=== PATIENT | male | born 1960 | race Caucasian/White ===

== ENCOUNTER 2016-08-02 20:36 | Emergency (ER) | payer OTHER ==
[2016-08-02 21:14] VITALS: BP 146/79; PULSE 77; RESP 18; TEMP 98.1
== END 2016-08-02 21:30 ==
LOC: EC 20:36
DX: Z02.83 Encounter for blood-alcohol and blood-drug test (principal)
CPT/HCPCS: 99281

== ENCOUNTER 2020-11-15 17:00 | Inpatient (IN) | payer OTHER ==
[2020-11-15] MEDS ORDERED: ETOMIDATE 2 MG/ML 10 ML VIAL IVP STA (17:21)
[2020-11-15] MEDS ORDERED: DILTIAZEM 5 MG/ML 5 ML VIAL IVP STA (17:26)
[2020-11-15] MEDS: DILTIAZEM DRIP BOLUS FROM BAG 1 MG SOLN IV ONE ×2 (17:28→18:08)
[2020-11-15] MEDS ORDERED: SODIUM CHLORIDE 0.9% 1,000 ML IV ONE (17:29)
[2020-11-15] MEDS ORDERED: DILTIAZEM 125 MG in SODIUM CHLORIDE 0.9% 100 ML IV SCH (17:30)
[2020-11-15] MEDS ORDERED: HEPARIN SODIUM 1,000 UN/ML (10ML VL) IV ONE (17:35)
[2020-11-15 17:37] LABS: Basophils # (A) 0.1 k/uL (0-0.2); Basophils % (A) 1 %; Eosinophils # (A) 0.2 k/uL (0-0.7); Eosinophils % (A) 2 %; HCT 48.7 % (39.0-53.0); HGB 16.4 gm/dL (13.0-17.5); Lymphocytes # (A) 0.7 k/uL (1.0-4.8); Lymphocytes % (A) 6 %; MCH 33.6 pg (25.0-35.0); MCHC 33.8 g/dL (31.0-37.0); MCV 99.4 fL (80.0-100.0); Monocytes # (A) 1.1 k/uL (0-1.0); Monocytes % (A) 10 %; Neutrophils # (A) 9.6 k/uL (1.3-7.7); Neutrophils % (A) 82 %; Platelet Count 235 k/uL (150-450); RBC 4.89 m/uL (4.30-5.90); RDW 13.2 % (11.5-15.5); WBC 11.8 k/uL (3.8-10.6)
--- NOTE | 2020-11-15 17:47 | ED ---
General Adult HPI - General Chief complaint: Weakness Stated complaint: weakness Time Seen by Provider: 11/15/20 17:10 Source: patient Mode of arrival: ambulatory Limitations: no limitations - History of Present Illness Initial comments: Dictation was produced using [email or web address] dictation software. please excuse any grammatical, word or spelling errors. This patient was cared for during a federal and state declared state of emergency secondary to Covid 19 Chief Complaint: 59-year-old male presents to the emergency department for dyspnea, lower extremity swelling History of Present Illness: Patient is a 59-year-old male he was sent in by primary care physician's office for severe dyspnea. Patient 59-year-old male he denies any medical problems. He states he however has not seen a doctor as he never had any issues. Does not take any medications on a regular basis. Patient smokes regularly. He drinks alcohol daily however only wanted 2 beers per day. Patient has been feeling ill for the last 2 weeks. He decided to follow-up with her primary care doctor. He went to Dr. Figueroa's office. She evaluated him told to come to the emergency department right away. Patient states over the last 2 weeks he's been having shortness of breath it's been increasing in intensity and severity. Also complains of palpitations. Denies any pain complaints. Since his symptoms are worse with lying flat. He notes significant edema developing over his bilateral lower extremities. The ROS documented in this emergency department record has been reviewed and confirmed by me. Those systems with pertinent positive or negative responses have been documented in the HPI. All other systems are other negative and/or noncontributory. PHYSICAL EXAM: General Impression: Alert and oriented x3, acute distress secondary to dyspnea HEENT: Normocephalic atraumatic, extra-ocular movements intact, pupils equal and reactive to light bilaterally, mucous membranes moist. Cardiovascular: Irregularly irregular Chest: 3 word and tenses, tachypneic, bilateral lung crackles Abdomen: abdomen soft, non-tender, non-distended, no organomegaly Musculoskeletal: Pulses present and equal in all extremities, 4+ pitting edema to the bilateral lower extremities Motor: no focal deficits noted Neurological: CN II-XII grossly intact, no focal motor or sensory deficits noted Skin: Intact with no visualized rashes Psych: Anxious ED course: 59-year-old male presents to the emergency department for dyspnea. He was emergently redirected from primary care physician's office for severe dyspnea. Signs upon arrival shows heart rate of 81, 93% on room air. 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 Patient significantly dyspneic. EKG shows atrial flutter. Patient given a bolus of 20 mg of Cardizem with improvement of heart rate to 149. Repeat EKG shows atrial flutter with 2:1 conduction. Pressure slightly decreased to measurement of 103/82. Laboratory evaluation obtained. CBC within acceptable limits. Coag panel shows an of 1.4. D-dimer is 3.15. Metabolic panel shows sodium 124, potassium 5.2 with hemolysis. There is positive anion gap acidosis. Lactic acidosis 4.0. Troponin levels 0.033, brain natruretic peptide is 6000. COVID-19 is negative. Chest x-ray shows bilateral pleural effusions with extensive bilateral pulmonary infiltrates. CT angios obtained for elevated d-dimer. No evidence of pulmonary embolism. Patient ordered for BiPAP. He is reevaluated bedside states he's improved. His heart rate is improved. Currently on heparin and Cardizem. Patient observed in emergency department for approximately 3 hours stable medical condition. Be admitted to cardiac telemetry floor. Case discussed with Faviola Martinez who is willing to accept patients care on behalf of [facility] hospitalist group. Cardiology be consulted. Clinical presentation consistent with new onset atrial flutter,, heart failure. EKG interpretation: Ventricular rate 199, atrial flutter, QRS 70, QTc 382. No MS prolongation, no QTC prolongation, no ST or T-wave changes noted. Narrow complex tachydysrhythmia - Related Data Home Medications Medication Instructions Recorded Confirmed No Known Home Medications 08/02/16 11/15/20 Allergies Allergy/AdvReac Type Severity Reaction Status Date / Time Sulfa (Sulfonamide Allergy Rash/Hives Verified 11/15/20 17:56 Antibiotics) Review of Systems ROS Statement: Those systems with pertinent positive or pertinent negative responses have been documented in the HPI. ROS Other: All systems not noted in ROS Statement are negative. Past Medical History Past Medical History: No Reported History History of Any Multi-Drug Resistant Organisms: None Reported Past Surgical History: No Surgical Hx Reported Past Psychological History: No Psychological Hx Reported Smoking Status: Current some day smoker Past Alcohol Use History: Occasional Past Drug Use History: None Reported General Exam Limitations: no limitations Course Vital Signs 11/15/20 11/15/20 11/15/20 17:04 17:17 17:28 Temperature 97.4 F L Pulse Rate 81 199 H 160 H Pulse Rate [ [place] ] Respiratory 24 Rate Blood Pressure 133/72 131/94 110/98 O2 Sat by Pulse 93 L Oximetry 11/15/20 11/15/20 11/15/20 17:30 17:32 18:11 Temperature Pulse Rate 147 H 147 H 151 H Pulse Rate [ [place] ] Respiratory 20 18 Rate Blood Pressure 103/80 103/82 110/79 O2 Sat by Pulse 92 L 95 Oximetry 11/15/20 11/15/20 11/15/20 18:17 18:28 18:30 Temperature Pulse Rate 152 H Pulse Rate [ 152 H [place] ] Respiratory 18 18 Rate Blood Pressure 116/91 O2 Sat by Pulse 94 L Oximetry 11/15/20 11/15/20 18:46 19:01 Temperature Pulse Rate 151 H 150 H Pulse Rate [ [place] ] Respiratory 18 18 Rate Blood Pressure 97/87 108/73 O2 Sat by Pulse 94 L 94 L Oximetry Medical Decision Making - Lab Data Result diagrams: 11/15/20 17:28 11/15/20 17:28 Lab Results 11/15/20 11/15/20 11/15/20 Range/Units 17:28 17:28 17:28 WBC 11.8 H (3.8-10.6) k/uL RBC 4.89 (4.30-5.90) m/uL Hgb 16.4 (13.0-17.5) gm/dL Hct 48.7 (39.0-53.0) % MCV 99.4 (80.0-100.0) fL MCH 33.6 (25.0-35.0) pg MCHC 33.8 (31.0-37.0) g/dL RDW 13.2 (11.5-15.5) % Plt Count 235 (150-450) k/uL MPV 8.0 Neutrophils % 82 % Lymphocytes % 6 % Monocytes % 10 % Eosinophils % 2 % Basophils % 1 % Neutrophils # 9.6 H (1.3-7.7) k/uL Lymphocytes # 0.7 L (1.0-4.8) k/uL Monocytes # 1.1 H (0-1.0) k/uL Eosinophils # 0.2 (0-0.7) k/uL Basophils # 0.1 (0-0.2) k/uL PT (9.0-12.0) sec INR (<1.2) APTT (22.0-30.0) sec D-Dimer (<0.60) mg/L FEU Sodium 124 L (137-145) mmol/L Potassium 5.2 H (3.5-5.1) mmol/L Chloride 95 L (98-107) mmol/L Carbon Dioxide 14 L (22-30) mmol/L Anion Gap 15 mmol/L BUN 12 (9-20) mg/dL Creatinine 0.59 L (0.66-1.25) mg/dL Est GFR (CKD-EPI)AfAm >90 (>60 ml/min/1.73 sqM) Est GFR (CKD-EPI)NonAf >90 (>60 ml/min/1.73 sqM) Glucose 100 H (74-99) mg/dL Plasma Lactic Acid Kapil 4.0 H* (0.7-2.0) mmol/L Calcium 8.8 (8.4-10.2) mg/dL Magnesium 1.3 L (1.6-2.3) mg/dL Troponin I (0.000-0.034) ng/mL NT-Pro-B Natriuret Pep pg/mL Influenza Type A (PCR) (Not Detectd) Influenza Type B (PCR) (Not Detectd) RSV (PCR) (Not Detectd) SARS-CoV-2 (PCR) (Not Detectd) 11/15/20 11/15/20 11/15/20 Range/Units 17:28 17:28 17:28 WBC (3.8-10.6) k/uL RBC (4.30-5.90) m/uL Hgb (13.0-17.5) gm/dL Hct (39.0-53.0) % MCV (80.0-100.0) fL MCH (25.0-35.0) pg MCHC (31.0-37.0) g/dL RDW (11.5-15.5) % Plt Count (150-450) k/uL MPV Neutrophils % % Lymphocytes % % Monocytes % % Eosinophils % % Basophils % % Neutrophils # (1.3-7.7) k/uL Lymphocytes # (1.0-4.8) k/uL Monocytes # (0-1.0) k/uL Eosinophils # (0-0.7) k/uL Basophils # (0-0.2) k/uL PT 14.4 H (9.0-12.0) sec INR 1.4 H (<1.2) APTT 23.1 (22.0-30.0) sec D-Dimer 3.15 H (<0.60) mg/L FEU Sodium (137-145) mmol/L Potassium (3.5-5.1) mmol/L Chloride (98-107) mmol/L Carbon Dioxide (22-30) mmol/L Anion Gap mmol/L BUN (9-20) mg/dL Creatinine (0.66-1.25) mg/dL Est GFR (CKD-EPI)AfAm (>60 ml/min/1.73 sqM) Est GFR (CKD-EPI)NonAf (>60 ml/min/1.73 sqM) Glucose (74-99) mg/dL Plasma Lactic Acid Kapil (0.7-2.0) mmol/L Calcium (8.4-10.2) mg/dL Magnesium (1.6-2.3) mg/dL Troponin I 0.033 (0.000-0.034) ng/mL NT-Pro-B Natriuret Pep 6320 pg/mL Influenza Type A (PCR) (Not Detectd) Influenza Type B (PCR) (Not Detectd) RSV (PCR) (Not Detectd) SARS-CoV-2 (PCR) (Not Detectd) 11/15/20 Range/Units 18:27 WBC (3.8-10.6) k/uL RBC (4.30-5.90) m/uL Hgb (13.0-17.5) gm/dL Hct (39.0-53.0) % MCV (80.0-100.0) fL MCH (25.0-35.0) pg MCHC (31.0-37.0) g/dL RDW (11.5-15.5) % Plt Count (150-450) k/uL MPV Neutrophils % % Lymphocytes % % Monocytes % % Eosinophils % % Basophils % % Neutrophils # (1.3-7.7) k/uL Lymphocytes # (1.0-4.8) k/uL Monocytes # (0-1.0) k/uL Eosinophils # (0-0.7) k/uL Basophils # (0-0.2) k/uL PT (9.0-12.0) sec INR (<1.2) APTT (22.0-30.0) sec D-Dimer (<0.60) mg/L FEU Sodium (137-145) mmol/L Potassium (3.5-5.1) mmol/L Chloride (98-107) mmol/L Carbon Dioxide (22-30) mmol/L Anion Gap mmol/L BUN (9-20) mg/dL Creatinine (0.66-1.25) mg/dL Est GFR (CKD-EPI)AfAm (>60 ml/min/1.73 sqM) Est GFR (CKD-EPI)NonAf (>60 ml/min/1.73 sqM) Glucose (74-99) mg/dL Plasma Lactic Acid Kapil (0.7-2.0) mmol/L Calcium (8.4-10.2) mg/dL Magnesium (1.6-2.3) mg/dL Troponin I (0.000-0.034) ng/mL NT-Pro-B Natriuret Pep pg/mL Influenza Type A (PCR) Not Detected (Not Detectd) Influenza Type B (PCR) Not Detected (Not Detectd) RSV (PCR) Not Detected (Not Detectd) SARS-CoV-2 (PCR) Not Detected (Not Detectd) Critical Care Time Critical Care Time: Yes Total Critical Care Time: 33 Disposition Clinical Impression: Heart failure, New onset atrial fibrillation Disposition: ADMITTED IP TO THIS HOSP Condition: Critical Referrals: Ila Figuerao MD [Primary Care Provider] - 1-2 days Decision Time: 19:38
[2020-11-15 17:48] LABS: African American GFR (CKD) >90 (>60 ml/min/1.73 sqM); Anion Gap 15 mmol/L; Blood Urea Nitrogen 12 mg/dL (9-20); Calcium 8.8 mg/dL (8.4-10.2); Carbon Dioxide 14 mmol/L (22-30); Chloride 95 mmol/L (98-107); Glucose 100 mg/dL (74-99); Magnesium 1.3 mg/dL (1.6-2.3); Non-African American GFR(CKD) >90 (>60 ml/min/1.73 sqM); Sodium 124 mmol/L (137-145)
--- NOTE | 2020-11-15 17:52 | XR ---
EXAMINATION TYPE: XR chest 1V portable DATE OF EXAM: 11/15/2020 COMPARISON: 04/18/2013 HISTORY: Short of breath TECHNIQUE: FINDINGS: Heart is enlarged. There is patchy pulmonary bilateral airspace infiltrates. There is coale scent density. There is blunting of the costophrenic angles. There are chest leads. Mediastinum appea rs normal. IMPRESSION: There are extensive bilateral pulmonary infiltrates with pleural effusions that could rel ate to RDS or atypical heart failure. Abnormalities are new compared to old exam.
[2020-11-15 17:54] LABS: Potassium 5.2 mmol/L (3.5-5.1)
[2020-11-15 17:58] LABS: INR 1.4 (<1.2); Partial Thromboplastin Time 23.1 sec (22.0-30.0); Prothrombin Time 14.4 sec (9.0-12.0)
[2020-11-15] MEDS: HEPARIN SOD,PORK IN 0.45% NACL 25,000 UNIT in 0.45% NACL 1 250ML.BAG IV SCH (17:58)
[2020-11-15] MEDS: MAGNESIUM SULFATE-D5W PMX 1 GM in DEXTROSE/WATER 1 100ML.BAG IVPB SCH ×2 (18:27→20:31)
[2020-11-15 18:32] LABS: D-Dimer 3.15 mg/L FEU (<0.60)
--- NOTE | 2020-11-15 19:32 | CT ---
EXAMINATION TYPE: CT angio chest DATE OF EXAM: 11/15/2020 COMPARISON: None HISTORY: Positive d-dimer, weakness, extremity edema. Pt denies any cardiac/pulmonary hx. CT DLP: 291.5 mGycm Automated exposure control for dose reduction was used. CONTRAST: Performed with IV Contrast, patient injected with 100 mL of Isovue 370. There are 3-D post processed images. There are bilateral pleural effusions. There is bilateral patchy lower lobe pulmonary airspace consol idation and atelectasis. Heart size is fairly normal. There is no pericardial effusion. There is no mediastinal adenopathy. There are no hilar masses. There is normal contrast opacification of the pulmonary arteries. There are no filling defects. Thoracic aorta appears intact. There is no evidence of aneurysm. The thoracic spine is intact. Sternum is intact. The upper abdominal soft tissu es are intact. IMPRESSION: No evidence of pulmonary embolism. Moderate-sized bilateral pleural effusions with extensive pulmonary infiltrates and atelectasis.
[2020-11-15] MEDS ORDERED: ACETAMINOPHEN TAB 325 MG TAB PO PRN (19:34)
[2020-11-15] MEDS ORDERED: NALOXONE 0.4 MG/ML 1 ML VIAL IV PRN (19:34)
[2020-11-15] MEDS: PANTOPRAZOLE 40 MG/10 ML VIAL IV SCH ×2 (21:09→23:22)
[2020-11-15] MEDS: SODIUM CHLORIDE 0.9% 1,000 ML IV SCH (23:23)
[2020-11-15] MEDS ORDERED: METOPROLOL TARTRATE 5 MG/5 ML VIAL IVP ONE (23:30)
[2020-11-16] MEDS ORDERED: SODIUM CHLORIDE 0.9% 500 ML 500 ML IV ONE (00:05)
[2020-11-16] MEDS ORDERED: DEXTROSE 5% IN WATER 100 ML with AMIODARONE 150 MG IV ONE (03:01)
[2020-11-16] MEDS ORDERED: AMIODARONE 360 MG in DEXTROSE 5% IN WATER 200 ML IV ONE ×2 (03:01)
[2020-11-16] MEDS ORDERED: DIGOXIN 250 MCG/ML 2 ML AMP IVP ONE ×2 (08:34→14:30)
[2020-11-16] MEDS ORDERED: FUROSEMIDE 10 MG/ML 2 ML VIAL IV ONE (08:34)
[2020-11-16] MEDS ORDERED: LORazepam 2 MG/ML INJ IV STA (09:09)
[2020-11-16] MEDS: ONDANSETRON 4 MG/2 ML VIAL IVP PRN (09:21)
--- NOTE | 2020-11-16 10:14 | ECHOF ---
Referral Reason:new onset atrial fibrillation MEASUREMENTS -------- HEIGHT: 182.9 cm WEIGHT: 72.6 kg BP: RVIDd: 3.8 cm (< 3.3) IVSd: 1.0 cm (0.6 - 1.1) LVIDd: 5.2 cm (3.9 - 5.3) LVPWd: 1.2 cm (0.6 - 1.1) IVSs: 1.1 cm LVIDs: 5.1 cm LVPWs: 1.3 cm LA Diam: 3.9 cm (2.7 - 3.8) Ao Diam: 3.0 cm (2.0 - 3.7) AV Cusp: 2.0 cm (1.5 - 2.6) MV EXCURSION: 15.488 mm (> 18.000) MV EF SLOPE: 99 mm/s (70 - 150) EPSS: 1.5 cm RAP: 5.00 mmHg RVSP: 18.87 mmHg FINDINGS -------- Atrial fibrillation. This was a technically adequate study. The left ventricular size is normal. There is borderline concentric left ventricular hypertrophy. There is severe global hypokinesis of LV . Overall left ventricular systolic function is severely impaired with, an EF < 20%. The right ventricle is mild to moderately enlarged. The left atrial size is normal. The right atrium is moderately enlarged. The aortic valve is trileaflet, and appears structurally normal. No aortic stenosis or regurgitation. The mitral valve is normal. Mild mitral regurgitation is present. Mild tricuspid regurgitation present. Right ventricular systolic pressure is normal at < 35 mmHg. The right ventricular systolic pressure, as measured by Doppler, is 18.87mmHg. There is no pulmonic regurgitation present. The aortic root size is normal. There is a small, generalized pericardial effusion present. Large Pleural Effusion. CONCLUSIONS -------- 1. There is borderline concentric left ventricular hypertrophy. 2. There is severe global hypokinesis of LV . 3. Overall left ventricular systolic function is severely impaired with, an EF < 20%. 4. The right ventricle is mild to moderately enlarged. 5. The left atrial size is normal. 6. The right atrium is moderately enlarged. 7. The aortic valve is trileaflet, and appears structurally normal. No aortic stenosis or regurgitati on. 8. Mild mitral regurgitation is present. 9. Mild tricuspid regurgitation present. 10. There is a small, generalized pericardial effusion present. 11. Large Pleural Effusion. PSS DELIVERY PROFESSIONAL: Tatum Hua RDCS
[2020-11-16 10:32] LABS: HCT 49.2 % (39.0-53.0); HGB 15.7 gm/dL (13.0-17.5); Hypochromasia Slight; MCH 32.9 pg (25.0-35.0); MCV 102.8 fL (80.0-100.0); Macrocytosis Slight; Mean Platelet Volume 8.4; Platelet Count 214 k/uL (150-450); RBC 4.79 m/uL (4.30-5.90); RDW 13.1 % (11.5-15.5); WBC 13.9 k/uL (3.8-10.6)
[2020-11-16 10:36] LABS: African American GFR (CKD) >90 (>60 ml/min/1.73 sqM); Anion Gap 17 mmol/L; Blood Urea Nitrogen 13 mg/dL (9-20); Calcium 8.7 mg/dL (8.4-10.2); Carbon Dioxide 13 mmol/L (22-30); Chloride 97 mmol/L (98-107); Glucose 62 mg/dL (74-99); Magnesium 1.8 mg/dL (1.6-2.3); Non-African American GFR(CKD) >90 (>60 ml/min/1.73 sqM); Potassium 4.8 mmol/L (3.5-5.1); Sodium 127 mmol/L (137-145)
[2020-11-16] MEDS: AMIODARONE 450 MG in DEXTROSE 5% IN WATER 250 ML IV SCH ×4 (10:36→23:59)
--- NOTE | 2020-11-16 14:21 | P.CRDCN ---
History of Present Illness History of present illness: HISTORY OF PRESENTING ILLNESS This is a pleasant 59-year-old male with no signifcant past medical history. 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 He denies any cardiac history. Denies history of diabetes, HI, stroke, hypertension. We have been asked to see in consultation for new onset atrial fibrillation with RVR. Patient states he has been feeling fatigue and short of breath for the past week. He went to his PCP Dr. Figueroa office and she told him to come to the emergency department. patient is a daily alcohol drinker 2 beers per day, deneis tobacco use. He endorses symptoms of orthopnea and PND. Also with significant lower extremity edema. Patient on heparin drip. Patient started on cardizem drip, became hypotensive. Cardizem stopped. Given IV Lopressor, experienced hypotension again. Started on amiodarone drip. Patient is seen and examined in the emergency department, appears in distress. Laboratory data reviewed, sodium 127, potassium 4.8, serum creatinine 0.89, WBC 13.9 BNP 6320, troponin negative 1. Currently being maintained on IV amiodarone, IV heparin. DIAGNOSTICS EKG reveals atrial fibrillation with RVR heart rate 148 Telemetry tracings indicate atrial fibrillation HR 130-140s Chest CT- negative PE, moderate sized bilateral pleural effusions with extensive pulmonary infiltrates and atelectasis Current cardiac medications include none REVIEW OF SYSTEMS At the time of my exam: CONSTITUTIONAL: Denies fever or chills. CARDIOVASCULAR: +shortness of breath +orthopnea, +PND Denies palpitations. Denies chest pain. RESPIRATORY: Denies cough. GASTROINTESTINAL: Denies abdominal pain, diarrhea, constipation, nausea or vomiting. MUSCULOSKELETAL: Denies myalgias. NEUROLOGIC: Denies numbness, tingling, headacbe or weakness. ENDOCRINE: + fatigue, Denies weight change, polydipsia or polyurina. GENITOURINARY: Denies burning, hematuria or urgency with micturation. HEMATOLOGIC: Denies history of anemia or bleeding. PHYSICAL EXAMINATION Blood pressure 105/84 heart rate 133 afebrile and maintaining oxygen saturation on 98% on room air CONSTITUTIONAL: No apparent distress. HEENT: Head is normocephalic. Pupils are equal, round. Sclerae anicteric. Mucous membranes of the mouth are moist. + JVD. No carotid bruit. CHEST EXAMINATION: Lungs are diminished auscultation Wheezing noted in bilateral bases. No chest wall tenderness is noted on palpation or with deep breathing. HEART EXAMINATION: Irregular and tachycardic rate and rhythm. S1, S2 heard. No m urmur No gallops or rub. ABDOMEN: Soft, nontender. Positive bowel sounds. EXTREMITIES: 2+ peripheral pulses,4+ severe lower extremity edema and no calf tenderness. NEUROLOGIC EXAMINATION: Patient is awake, alert and oriented x3. ASSESSMENT Atrial fibrillation with RVR PLAN Obtain 2D echo Start Digoxin 250mcg IV once, then another dose in 6 hours Continue amiodarone drip and heparin drip Start IV Lasix Patient should be admitted to ICU Keep patient NPO for possible SUSIE cardioversion Nurse Practitioner note has been reviewed, I agree with a documented findings and plan of care. Patient was seen and examined. Past Medical History Past Medical History: No Reported History History of Any Multi-Drug Resistant Organisms: None Reported Past Surgical History: No Surgical Hx Reported Past Anesthesia/Blood Transfusion Reactions: No Reported Reaction Past Psychological History: No Psychological Hx Reported Smoking Status: Current some day smoker Past Alcohol Use History: Occasional Past Drug Use History: None Reported Medications and Allergies Home Medications Medication Instructions Recorded Confirmed Type No Known Home Medications 08/02/16 11/15/20 History Allergies Allergy/AdvReac Type Severity Reaction Status Date / Time Sulfa (Sulfonamide Allergy Rash/Hives Verified 11/15/20 17:56 Antibiotics) Physical Exam Vitals: Vital Signs Temp Pulse Pulse Resp BP BP Pulse Ox 11/16/20 06:21 140 H 20 112/60 95 11/16/20 04:26 141 H 20 96/65 96 11/16/20 03:53 146 H 16 115/79 97 11/16/20 02:30 146 H 121/86 11/16/20 01:35 98.4 F 71 19 84/67 96 11/16/20 00:50 144 H 20 89/76 96 11/16/20 00:43 104 H 18 88/62 93 L 11/16/20 00:28 112 H 18 104/82 11/16/20 00:20 114 H 18 104/82 95 11/16/20 00:10 83 18 64/43 95 11/16/20 00:05 96 18 78/67 95 11/15/20 23:51 96 18 96/63 95 11/15/20 23:50 97 18 103/89 11/15/20 23:45 97 18 88/52 93 L 11/15/20 23:35 98 18 96/63 94 L 11/15/20 23:14 98.1 F 149 H 18 107/80 96 11/15/20 19:01 150 H 18 108/73 94 L 11/15/20 18:46 151 H 18 97/87 94 L 11/15/20 18:30 18 11/15/20 18:28 152 H 11/15/20 18:17 152 H 18 116/91 94 L 11/15/20 18:11 151 H 18 110/79 95 11/15/20 17:32 147 H 20 103/82 92 L 11/15/20 17:30 147 H 103/80 11/15/20 17:28 160 H 110/98 11/15/20 17:17 199 H 131/94 11/15/20 17:04 97.4 F L 81 24 133/72 93 L Intake and Output 11/15/20 11/16/20 11/16/20 22:59 06:59 14:59 Intake Total 6.167 201.292 Balance 6.167 201.292 Intake: Intake, IV Titration 6.167 201.292 Amount Diltiazem 125 mg In 6.167 94.167 Sodium Chloride 0.9% 100 ml @ 5 MG/HR 5 mls/hr IV .Q24H [facility] Rx#:[id number] Heparin Sod,Pork in 0.45% 107.125 NaCl 25,000 unit In 0.45 % NaCl 1 250ml.bag @ 18 UNITS/KG/HR 13.064 mls/hr IV .Q19H9M [facility] Rx#: [id number] Other: # Voids 2 Weight 72.575 kg Results 11/16/20 09:52 11/16/20 09:52 Cardiac Enzymes 11/15/20 Range/Units 17:28 Troponin I 0.033 (0.000-0.034) ng/mL Coagulation 11/15/20 11/16/20 Range/Units 17:28 00:31 PT 14.4 H (9.0-12.0) sec APTT 23.1 144.8 H* (22.0-30.0) sec CBC 04/27/21 Range/Units 17:28 WBC 11.8 H (3.8-10.6) k/uL RBC 4.89 (4.30-5.90) m/uL Hgb 16.4 (13.0-17.5) gm/dL Hct 48.7 (39.0-53.0) % Plt Count 235 (150-450) k/uL Comprehensive Metabolic Panel 11/15/20 Range/Units 17:28 Sodium 124 L (137-145) mmol/L Potassium 5.2 H (3.5-5.1) mmol/L Chloride 95 L (98-107) mmol/L Carbon Dioxide 14 L (22-30) mmol/L BUN 12 (9-20) mg/dL Creatinine 0.59 L (0.66-1.25) mg/dL Glucose 100 H (74-99) mg/dL Calcium 8.8 (8.4-10.2) mg/dL Current Medications Generic Name Dose Route Start Last Admin Trade Name Freq PRN Reason Stop Dose Admin Acetaminophen 650 mg 11/15/20 19:34 Acetaminophen Tab 325 Mg Tab PO Q6HR PRN Mild Pain or Fever > 100.5 Heparin Sodium (Porcine) 0 unit 11/15/20 17:35 Heparin Sodium 1,000 Un/Ml (10ml Vl) IV PER PROTOCOL PRN Low PTT Protocol Heparin Sodium/Sodium Chloride 250 mls @ 13.064 mls/hr 11/15/20 17:45 11/16/20 03:54 25,000 unit/ Sodium Chloride IV 15 units/kg/hr .Q19H9M [facility] 10.886 mls/hr Titration Protocol 18 UNITS/KG/HR Sodium Chloride 1,000 mls @ 20 mls/hr 11/15/20 19:45 11/15/20 23:23 Saline 0.9% IV 20 mls/hr .Q24H [facility] Administration Amiodarone HCl 360 mg/ 200 mls @ 33.333 mls/hr 11/16/20 03:01 11/16/20 04:01 Dextrose/Water IV 11/16/20 09:00 1 mg/min .Q6H ONE 33.333 mls/hr Administration Protocol 1 MG/MIN Amiodarone HCl 450 mg/ 250 mls @ 16.667 mls/hr 11/16/20 09:15 Dextrose/Water IV 11/17/20 03:14 .Q15H [facility] Protocol 0.5 MG/MIN Naloxone HCl 0.2 mg 11/15/20 19:34 Naloxone 0.4 Mg/Ml 1 Ml Vial IV Q2M PRN Opioid Reversal Ondansetron HCl 4 mg 11/15/20 19:34 Ondansetron 4 Mg/2 Ml Vial IVP Q8HR PRN Nausea And Vomiting Pantoprazole Sodium 40 mg 11/15/20 19:45 11/15/20 23:22 Pantoprazole 40 Mg/10 Ml Vial IV 40 mg DAILY ISABELLA Administration Intake and Output 11/15/20 11/16/20 11/16/20 22:59 06:59 14:59 Intake Total 6.167 201.292 Balance 6.167 201.292 Intake: Intake, IV Titration 6.167 201.292 Amount Diltiazem 125 mg In 6.167 94.167 Sodium Chloride 0.9% 100 ml @ 5 MG/HR 5 mls/hr IV .Q24H [facility] Rx#:[id number] Heparin Sod,Pork in 0.45% 107.125 NaCl 25,000 unit In 0.45 % NaCl 1 250ml.bag @ 18 UNITS/KG/HR 13.064 mls/hr IV .Q19H9M [facility] Rx#: [id number] Other: # Voids 2 Weight 72.575 kg 11/15/20 17:28 11/15/20 17:28
[2020-11-16] MEDS: FUROSEMIDE 10 MG/ML 4 ML VIAL IV SCH (14:44)
[2020-11-16 15:31] LABS: Glucose,Whole Blood 127 mg/dL (75-99)
[2020-11-16 15:54] LABS: Glucose,Whole Blood 119 mg/dL (75-99)
[2020-11-16] MEDS: HEPARIN SOD,PORK IN 0.45% NACL 25,000 UNIT in 0.45% NACL 1 250ML.BAG IV SCH ×2 (16:10→20:04)
[2020-11-16] MEDS: SODIUM CHLORIDE 0.9% 1,000 ML IV SCH ×3 (16:11→21:26)
--- NOTE | 2020-11-16 16:18 | P.CNPUL ---
History of Present Illness Consult date: 11/16/20 Requesting physician: Ila Figueroa Reason for consult: dyspnea, hypoxemia, pleural effusion, abnormal CXR/CT, other Chief complaint: Fatigue and weakness, shortness of breath. History of present illness: Pulmonary consult dated 11/16/2020. 59-year-old male, who apparently does not visit the doctor or sees the doctor on a regular basis, and claims that he has no major medical problems, comes into the emergency room on November 15, complaining of weakness and fatigue. The patient was apparently sent in by his primary care physician for these symptoms. The patient does drink a couple beers every day, and smokes at least a pack of cigarettes a day. The patient has been smoking for at least 40 years or so. Over the last couple weeks, he has no appetite, not really eating or drinking, and has no motivation to really get out of bed. He looks quite disheveled, and his clothing is dirty. When he was in the emergency room, he was noted to have atrial fibrillation with a very rapid ventricular response. Currently, the patient is on 2 L nasal cannula. On room air, her saturations were 90-91%. He is currently on IV heparin, and amiodarone at 0.5 mg/m. Lopressor and Cardizem that he was on earlier, has been discontinued. He denies any major medical problems, and again states that he does not see the doctor on a regular basis. The patient looks quite ill. Apparently had an echocardiogram which showed a very low ejection fraction. He states he takes no medications at home on a regular basis, and is only drug ALLERGY is sulfa. Review of Systems REVIEW OF SYSTEMS: CONSTITUTIONAL: Weakness and fatigue. Decreased oral intake. NEUROLOGIC: [ Negative.] HEENT: [ Negative.] CARDIAC: [Negative.] PULMONARY: Shortness of breath. GI: Decreased appetite. : [Negative.] RHEUMATOLOGIC: [ Negative.] IMMUNOLOGIC: [ Negative.] ENDOCRINE: [Negative. ] DERMATOLOGIC: [Negative.] Past Medical History Past Medical History: No Reported History History of Any Multi-Drug Resistant Organisms: None Reported Past Surgical History: No Surgical Hx Reported Past Anesthesia/Blood Transfusion Reactions: No Reported Reaction Past Psychological History: No Psychological Hx Reported Smoking Status: Current some day smoker Past Alcohol Use History: Occasional Past Drug Use History: None Reported Medications and Allergies Home Medications Medication Instructions Recorded Confirmed Type No Known Home Medications 08/02/16 11/15/20 History Allergies Allergy/AdvReac Type Severity Reaction Status Date / Time Sulfa (Sulfonamide Allergy Rash/Hives Verified 11/15/20 17:56 Antibiotics) Physical Exam Osteopathic Statement: *. No significant issues noted on an osteopathic structural exam other than those noted in the History and Physical/Consult. Vitals: Vital Signs Temp Pulse Pulse Resp BP BP Pulse Ox 11/16/20 15:44 97.9 F 138 H 18 121/88 95 11/16/20 14:29 97.9 F 137 H 29 H 117/37 95 11/16/20 12:22 97.5 F L 135 H 28 H 102/48 90 L 11/16/20 11:18 98.4 F 133 H 30 H 103/45 91 L 11/16/20 10:55 133 H 28 H 105/27 95 11/16/20 09:18 133 H 28 H 105/84 98 11/16/20 07:43 98.2 F 138 H 28 H 112/81 99 11/16/20 06:21 140 H 20 112/60 95 11/16/20 04:26 141 H 20 96/65 96 11/16/20 03:53 146 H 16 115/79 97 11/16/20 02:30 146 H 121/86 11/16/20 01:35 98.4 F 71 19 84/67 96 11/16/20 00:50 144 H 20 89/76 96 11/16/20 00:43 104 H 18 88/62 93 L 11/16/20 00:28 112 H 18 104/82 11/16/20 00:20 114 H 18 104/82 95 11/16/20 00:10 83 18 64/43 95 11/16/20 00:05 96 18 78/67 95 11/15/20 23:51 96 18 96/63 95 11/15/20 23:50 97 18 103/89 11/15/20 23:45 97 18 88/52 93 L 11/15/20 23:35 98 18 96/63 94 L 11/15/20 23:14 98.1 F 149 H 18 107/80 96 11/15/20 19:01 150 H 18 108/73 94 L 11/15/20 18:46 151 H 18 97/87 94 L 11/15/20 18:30 18 11/15/20 18:28 152 H 11/15/20 18:17 152 H 18 116/91 94 L 11/15/20 18:11 151 H 18 110/79 95 11/15/20 17:32 147 H 20 103/82 92 L 11/15/20 17:30 147 H 103/80 11/15/20 17:28 160 H 110/98 11/15/20 17:17 199 H 131/94 11/15/20 17:04 97.4 F L 81 24 133/72 93 L Intake and Output 11/16/20 11/16/20 11/16/20 06:59 14:59 22:59 Intake Total 201.292 74.569 Balance 201.292 74.569 Intake: Intake, IV Titration 201.292 74.569 Amount Diltiazem 125 mg In 94.167 Sodium Chloride 0.9% 100 ml @ 5 MG/HR 5 mls/hr IV .Q24H ISABELLA Rx#:[id number] Heparin Sod,Pork in 0.45% 107.125 74.569 NaCl 25,000 unit In 0.45 % NaCl 1 250ml.bag @ 18 UNITS/KG/HR 13.064 mls/hr IV .Q19H9M ISABELLA Rx#: [id number] Other: # Voids 2 Mild conversational dyspnea, oriented, quite disheveled, with dirty clothing. Room air saturations 90-91%, higher on supplemental oxygen, which he keeps taking off. HEENT examination is grossly unremarkable. Teeth are in very poor repair. Neck supple. Full range of motion. No adenopathy or thyromegaly. There is neck vein distention. Cardiovascular examination reveals an irregular rhythm and rate. S1-S2 normal. No S3 or S4. No discernible murmur noted. Heart sounds are distant. Heart rate 138 bpm. Lungs reveal scattered rhonchi. A few scattered crackles. Breath sounds equal. A few scattered wheezes are also noted. Abdomen soft bowel sounds are heard. No masses or tenderness. Extremities are intact. No cyanosis or clubbing. Lower extremity edema is noted. Skin is without rash or lesion. Neurologic examination is brief but nonfocal. Results - Laboratory Findings CBC and BMP: 11/16/20 09:52 11/16/20 09:52 PT/INR, D-dimer PT 14.4 sec (9.0-12.0) H 11/15/20 17:28 INR 1.4 (<1.2) H 11/15/20 17:28 D-Dimer 3.15 mg/L FEU (<0.60) H 11/15/20 17:28 Abnormal lab findings: Abnormal Labs 11/15/20 11/15/20 11/15/20 17:28 17: 17:28 WBC 11.8 H MCV Neutrophils # 9.6 H Lymphocytes # 0.7 L Monocytes # 1.1 H PT INR APTT D-Dimer Sodium 124 L Potassium 5.2 H Chloride 95 L Carbon Dioxide 14 L Creatinine 0.59 L Glucose 100 H POC Glucose (mg/dL) Plasma Lactic Acid Kapil 4.0 H* Magnesium 1.3 L 11/15/20 11/16/20 11/16/20 17: 00:31 09:52 WBC 13.9 H MCV 102.8 H Neutrophils # Lymphocytes # Monocytes # PT 14.4 H INR 1.4 H APTT 144.8 H* D-Dimer 3.15 H Sodium Potassium Chloride Carbon Dioxide Creatinine Glucose POC Glucose (mg/dL) Plasma Lactic Acid Kapil Magnesium 11/16/20 11/16/20 11/16/20 09:52 09:52 15:28 WBC MCV Neutrophils # Lymphocytes # Monocytes # PT INR APTT 73.1 H D-Dimer Sodium 127 L Potassium Chloride 97 L Carbon Dioxide 13 L Creatinine Glucose 62 L POC Glucose (mg/dL) 127 H Plasma Lactic Acid Kapil Magnesium 11/16/20 15:52 WBC MCV Neutrophils # Lymphocytes # Monocytes # PT INR APTT D-Dimer Sodium Potassium Chloride Carbon Dioxide Creatinine Glucose POC Glucose (mg/dL) 119 H Plasma Lactic Acid Kapil Magnesium - Diagnostic Findings Chest x-ray: image reviewed CT scan - chest: image reviewed Assessment and Plan Assessment: Severe cardiomyopathy, with an ejection fraction of less than 20%, and a patient with systolic CHF and bilateral effusions. Atrial fibrillation with RVR, possibly new onset. Medical noncompliance, as patient has not seen a doctor in years. No evidence of pulmonary embolism on CT angiogram. Probable hypervolemic hyponatremia. Anion gap metabolic acidosis. History of chronic alcohol use. History of chronic tobacco use and nicotine addiction, rule out COPD. Plan: Plan dated 11/16/2020. The patient will be admitted into the intensive care unit. I'll add some updrafts, with albuterol sulfate, and ipratropium bromide. Cardiology has seen the patient. Echocardiogram shows a severely impaired left ventricle. A procalcitonin level be done. Additional recommendations and suggestions are forthcoming. Prognosis is guarded. We will continue to follow make recommendations were appropriate. Currently, the patient's on IV heparin, and amiodarone at 0.5 mg/m. Time with Patient: Greater than 30
[2020-11-16] MEDS ORDERED: IPRATROPIUM-ALBUTEROL 3 ML NEB INHALATION PRN (16:30)
--- NOTE | 2020-11-16 16:54 | P.PCN ---
Date of Procedure: 11/16/20 Preoperative Diagnosis: Atrial flutter with rapid ventricular response associated with hypotension and CHF. Postoperative Diagnosis: Successful cardioversion to sinus rhythm Procedure(s) Performed: SUSIE followed by cardioversion Description of Procedure: #1. SUSIE INDICATION: To rule out left atrial thrombus before cardioversion CONSENT: . Informed verbal consent was obtained PROCEDURE: Patient is in ICU. Patient has been nothing by mouth. Patient was given sedation by department of anesthesia. Patient's throat was sprayed with Hurricaine. A lubricated Omni probe was introduced in the oropharynx and was advanced into the esophagus without difficulty. Multiple views were obtained. Color, pulsed, continuous Doppler studies were performed . Saline contrast bubble injection was performed FINDINGS: . There is biventricular enlargement with biventricular dysfunction and hypokinesia. The left atrial appendage is free of any clot. There is about 2+ mitral regurgitation. Biatrial enlargement. There is no evidence of PFO. Severely impaired LV function. The aortic valve appeared to be normal and tricuspid without any significant regurgitation. Tricuspid valve showed mild regurgitation IMPRESSION: . No clot in left atrial appendage PLAN: . She didn't cardioversion. #2. Cardioversion: After completion of the SSUIE, patient was positioned supine. Anterior posterior paddles were applied. A single shock of 200 J was applied .patient converted to sinus rhythm. No immediate complications. Final impression: Successful cardioversion. Plan: Continue with current medical therapy including anticoagulation and also IV amiodarone. We will continue with digoxin. Continue the beta blockers, diuretics and also HARJEET inhibitor. Will add Aldactone.
[2020-11-16] MEDS: IPRATROPIUM-ALBUTEROL 3 ML NEB INHALATION SCH (19:00)
--- NOTE | 2020-11-16 20:18 | P.HPIM ---
History of Present Illness H&P Date: 11/16/20 Chief Complaint: shortness of breath Marbin Chin is a 59 yo M who has no known PMH, does not see a doctor and states he has been healthy his entire life. Over the past few weeks he has been feeling increasingly malaised and short of breath. He denies any chest pain or sweats. Pt established care with his PCP and described these symptoms and was thus sent to the ED. He is a daily alcohol drinker 2 beers per day and lifelong smoker. He endorses symptoms of orthopnea and PND. On presentation he was noted to be in atrial fibrillation with RVR was started on diltiazem drip. Labs significant for WBC 11.8k, Na 124, BNP 6200, trop negative. He remained in RVR despite diltiazem and was loaded on amiodarone with improvement in HR. Echo today showing EF 5%. Review of Systems All systems: negative Constitutional: Reports malaise, Denies chills, Denies fever Eyes: denies blurred vision, denies pain Ears, nose, mouth and throat: Denies headache, Denies sore throat Cardiovascular: Reports dyspnea on exertion, Reports edema, Reports orthopnea, Denies chest pain, Denies shortness of breath Respiratory: Reports cough, Reports dyspnea Gastrointestinal: Denies abdominal pain, Denies diarrhea, Denies nausea, Denies vomiting Musculoskeletal: Denies myalgias Integumentary: Denies pruritus, Denies rash Neurological: Denies numbness, Denies weakness Psychiatric: Denies anxiety, Denies depression Endocrine: Denies fatigue, Denies weight change Past Medical History Past Medical History: No Reported History History of Any Multi-Drug Resistant Organisms: None Reported Past Surgical History: No Surgical Hx Reported Past Anesthesia/Blood Transfusion Reactions: No Reported Reaction Past Psychological History: No Psychological Hx Reported Smoking Status: Current some day smoker Past Alcohol Use History: Occasional Past Drug Use History: None Reported Medications and Allergies Home Medications Medication Instructions Recorded Confirmed Type No Known Home Medications 08/02/16 11/15/20 History Allergies Allergy/AdvReac Type Severity Reaction Status Date / Time Sulfa (Sulfonamide Allergy Rash/Hives Verified 11/15/20 17:56 Antibiotics) Physical Exam Vitals: Vital Signs Temp Pulse Pulse Resp BP BP Pulse Ox 11/16/20 19:10 96 11/16/20 19:06 96 11/16/20 19:00 98 17 123/80 96 11/16/20 18:30 95 18 122/83 96 11/16/20 18:00 96 17 126/85 95 11/16/20 17:30 96 23 126/95 93 L 11/16/20 17:00 82 16 107/79 97 11/16/20 16:30 83 17 116/78 95 11/16/20 16:00 97.7 F 138 H 17 133/76 95 11/16/20 15:44 97.9 F 138 H 18 121/88 95 11/16/20 15:30 121/88 11/16/20 14:29 97.9 F 137 H 29 H 117/37 95 11/16/20 12:22 97.5 F L 135 H 28 H 102/48 90 L 11/16/20 11:18 98.4 F 133 H 30 H 103/45 91 L 11/16/20 10:55 133 H 28 H 105/27 95 11/16/20 09:18 133 H 28 H 105/84 98 11/16/20 07:43 98.2 F 138 H 28 H 112/81 99 11/16/20 06:21 140 H 20 112/60 95 11/16/20 04:26 141 H 20 96/65 96 11/16/20 03:53 146 H 16 115/79 97 11/16/20 02:30 146 H 121/86 11/16/20 01:35 98.4 F 71 19 84/67 96 11/16/20 00:50 144 H 20 89/76 96 11/16/20 00:43 104 H 18 88/62 93 L 11/16/20 00:28 112 H 18 104/82 11/16/20 00:20 114 H 18 104/82 95 11/16/20 00:10 83 18 64/43 95 11/16/20 00:05 96 18 78/67 95 11/15/20 23:51 96 18 96/63 95 11/15/20 23:50 97 18 103/89 11/15/20 23:45 97 18 88/52 93 L 11/15/20 23:35 98 18 96/63 94 L 11/15/20 23:14 98.1 F 149 H 18 107/80 96 Intake and Output 04/11/16/20 11/16/20 06:59 14:59 22:59 Intake Total 201.292 74.569 80 Output Total 1000 Balance 201.292 74.569 -920 Intake: IV 80 Sodium Chloride 0.9% 1, 80 000 ml @ 20 mls/hr IV . Q24H ISABELLA Rx#:[id number] Intake, IV Titration 201.292 74.569 Amount Diltiazem 125 mg In 94.167 Sodium Chloride 0.9% 100 ml @ 5 MG/HR 5 mls/hr IV .Q24H ISABELLA Rx#:[id number] Heparin Sod,Pork in 0.45% 107.125 74.569 NaCl 25,000 unit In 0.45 % NaCl 1 250ml.bag @ 18 UNITS/KG/HR 13.064 mls/hr IV .Q19H9M ISABELLA Rx#: [id number] Output: Urine 1000 Other: Voiding Method Indwelling Catheter # Voids 2 General: ill appearing, in mild distress. Vitals reviewed Eyes: PERRL, EOMI, conjunctiva normal HENT: normocephalic, mucus membranes moist Neck: supple, no JVD Lungs: normal respiratory effort, no rales. exp wheezing CV: Irregular. 1+ edema, pulses 1+ Abdomen: soft, nondistended, no organomegaly Lymph: no cervical or axillary LAD Skin: warm and dry. Neuro: A&Ox3 Results CBC & Chem 7: 11/16/20 09:52 11/16/20 09:52 Labs: Abnormal Lab Results - Last 24 Hours (Table) 11/16/20 11/16/20 11/16/20 Range/Units 00:31 09:52 09:52 WBC 13.9 H (3.8-10.6) k/uL MCV 102.8 H (80.0-100.0) fL APTT 144.8 H* 73.1 H (22.0-30.0) sec Sodium (137-145) mmol/L Chloride (98-107) mmol/L Carbon Dioxide (22-30) mmol/L Glucose (74-99) mg/dL POC Glucose (mg/dL) (75-99) mg/dL 11/16/20 11/16/20 11/16/20 Range/Units 09:52 15:28 15:52 WBC (3.8-10.6) k/uL MCV (80.0-100.0) fL APTT (22.0-30.0) sec Sodium 127 L (137-145) mmol/L Chloride 97 L (98-107) mmol/L Carbon Dioxide 13 L (22-30) mmol/L Glucose 62 L (74-99) mg/dL POC Glucose (mg/dL) 127 H 119 H (75-99) mg/dL 11/16/20 Range/Units 18:36 WBC (3.8-10.6) k/uL MCV (80.0-100.0) fL APTT 86.0 H (22.0-30.0) sec Sodium (137-145) mmol/L Chloride (98-107) mmol/L Carbon Dioxide (22-30) mmol/L Glucose (74-99) mg/dL POC Glucose (mg/dL) (75-99) mg/dL Thrombosis Risk Factor Assmnt - Choose All That Apply Each Factor Represents 1 point: Age 41-60 years Thrombosis Risk Factor Assessment Total Risk Factor Score: 1 Thrombosis Risk Factor Assessment Level: Low Risk Assessment and Plan (1) Acute systolic CHF (congestive heart failure), NYHA class 3 Current Visit: Yes Status: Acute Code(s): I50.21 - ACUTE SYSTOLIC (CONGESTIVE) HEART FAILURE SNOMED Code(s): 213262224 (2) Cardiomyopathy Current Visit: Yes Status: Acute Code(s): I42.9 - CARDIOMYOPATHY, UNSPECIF IED SNOMED Code(s): 06324660 (3) Atrial fibrillation with RVR Current Visit: Yes Status: Acute Code(s): I48.91 - UNSPECIFIED ATRIAL FIBRILLATION SNOMED Code(s): 656128847401277 (4) Tobacco abuse Current Visit: Yes Status: Acute Code(s): Z72.0 - TOBACCO USE SNOMED Code(s): 803118946 Plan: 1. Acute systolic CHF, cardiomyopathy. Admit to ICU. Cardiology and Pulmonology consulted, continue with diltiazem, amiodarone, heparin drip. Start lasix 2. Atrial fibrillation with RVR 3. Hyponatremia. Related to heart failure, diuresis per cardiology. Continue to monitor 4. tobacco abuse. duonebs per pulm
[2020-11-17] MEDS: FUROSEMIDE 10 MG/ML 4 ML VIAL IV SCH ×3 (00:03→15:12)
[2020-11-17 06:22] LABS: African American GFR (CKD) >90 (>60 ml/min/1.73 sqM); Anion Gap 7 mmol/L; Blood Urea Nitrogen 18 mg/dL (9-20); Carbon Dioxide 26 mmol/L (22-30); Chloride 97 mmol/L (98-107); Glucose 79 mg/dL (74-99); Non-African American GFR(CKD) >90 (>60 ml/min/1.73 sqM); Potassium 3.6 mmol/L (3.5-5.1); Sodium 130 mmol/L (137-145)
[2020-11-17] MEDS: IPRATROPIUM-ALBUTEROL 3 ML NEB INHALATION SCH ×3 (07:15→19:53)
[2020-11-17] MEDS ORDERED: POTASSIUM CHLORIDE 10 MEQ in WATER FOR INJECTION 1 100ML.BAG IVPB SCH (08:00)
[2020-11-17] MEDS: PANTOPRAZOLE 40 MG/10 ML VIAL IV SCH (08:04)
[2020-11-17] MEDS: DIGOXIN 125 MCG TAB PO SCH (08:04)
[2020-11-17] MEDS: SPIRONOLACTONE 25 MG TAB PO SCH (08:04)
[2020-11-17] MEDS: POTASSIUM CHLORIDE ER 10 MEQ TAB.ER.PRT PO SCH ×2 (08:06→11:18)
--- NOTE | 2020-11-17 08:37 | US ---
EXAMINATION TYPE: US chest DATE OF EXAM: 11/17/2020 COMPARISON: CTA chest 2 days ago CLINICAL HISTORY: pleural effusions. Effusions TECHNIQUE: Targeted ultrasound of the posterior lower bilateral hemithoraces EXAM MEASUREMENTS: Right Pleural Effusion pocket size: 10.3 cm Right skin surface to fluid distance: 3.3 cm Left Pleural Effusion pocket size: 9.4 cm Left skin surface to fluid distance: 2.7 cm Right side marked for possible thoracentesis outside the dept. Left side marked for possible thoracentesis outside the dept. Pulmonologists are able to review the images in the patient?s EMR. At least moderate bilateral pleural effusions on images saved stable or perhaps slightly larger versu s most recent CT. IMPRESSIONS: As above.
--- NOTE | 2020-11-17 10:09 | PCN ---
PROCEDURE NOTE PULMONARY/CRITICAL CARE PROCEDURE NOTE: PROCEDURE: Right-sided thoracentesis. PREOPERATIVE DIAGNOSIS: Right pleural effusion. POSTOPERATIVE DIAGNOSIS: Right pleural effusion. OPERATORS: Dr. Ojeda and Dr. Panchal. The patient's procedure took place in the ICU in room 264. Indication Pleural effusion. A time-out was completed verifying correct patient, procedure, site, positioning , and implant (s) or special equipment if applicable. Ultrasound guidance was used and appropriate fluid pocket was identified and marked. Patient was positioned, prepped and draped in usual sterile fashion. Lidocaine was used to anesthetize the area. A Thoracentesis catheter was introduced into the pleural space and fluid was removed. Blood loss was none. A chest x-ray was ordered to evaluate for pneumothorax. Total Fluid Removed: 1200 mL. Color of Fluid: Yellow fluid. Fluid was sent for appropriate laboratory tests. Patient tolerated the procedure well and there were no complications. The posterior chest was marked by ultrasound and 1200 mL of yellow fluid was removed from the right pleural space. The patient tolerated the procedure well. The fluid will be sent for analysis. There was informed consent and universal timeout. There was no immediate complication. A chest x-ray was ordered to rule out pneumothorax. MMODL / IJN: [id number] /
--- NOTE | 2020-11-17 10:36 | XR ---
EXAMINATION TYPE: XR chest 1V DATE OF EXAM: 11/17/2020 CLINICAL HISTORY: Difficulty breathing progress study. Status post right thoracentesis. TECHNIQUE: Single AP portable upright view of the chest is obtained. COMPARISON: Chest x-ray and CT chest from 2 days earlier FINDINGS: Improved right-sided pleural effusion after thoracentesis. No pneumothorax noted. Persiste nt small to moderate-sized left pleural effusion. Background chronic emphysematous change with multif ocal opacities bilaterally redemonstrated. Some new central right suprahilar opacity could reflect so me reexpansion alveolar edema. Suspect some underlying pulmonary fibrotic change. Cardiac silhouette size is stable and mildly enlarged. Osseous structures remain intact. IMPRESSION: No right-sided pneumothorax with improved right-sided pleural effusion after right sided thoracentesis. Some new central mild right alveolar reexpansion pulmonary edema. Other findings not significantly changed from CT and chest x-ray 2 days earlier. Cardiomegaly and chr onic emphysematous and pulmonary fibrotic changes with bilateral multifocal organizing consolidations and persistent small to moderate size left pleural effusion. Underlying masses or nodules not exclud ed.
[2020-11-17] MEDS: AMOXIC-POT CLAV 875-125MG 1 EACH TAB PO SCH ×2 (11:18→22:04)
[2020-11-17 11:35] LABS: Glucose,Whole Blood 83 mg/dL (75-99)
--- NOTE | 2020-11-17 11:51 | P.PN ---
Subjective Progress Note Date: 11/17/20 Principal diagnosis: Shortness of breath. Pulmonary consult dated 11/16/2020. 59-year-old male, who apparently does not visit the doctor or sees the doctor on a regular basis, and claims that he has no major medical problems, comes into the emergency room on November 15, complaining of weakness and fatigue. The patient was apparently sent in by his primary care physician for these symptoms. The patient does drink a couple beers every day, and smokes at least a pack of cigarettes a day. The patient has been smoking for at least 40 years or so. Over the last couple weeks, he has no appetite, not really eating or drinking, and has no motivation to really get out of bed. He looks quite disheveled, and his clothing is dirty. When he was in the emergency room, he was noted to have atrial fibrillation with a very rapid ventricular response. Currently, the patient is on 2 L nasal cannula. On room air, her saturations were 90-91%. He is currently on IV heparin, and amiodarone at 0.5 mg/m. Lopressor and Cardizem that he was on earlier, has been discontinued. He denies any major medical problems, and again states that he does not see the doctor on a regular basis. The patient looks quite ill. Apparently had an echocardiogram which showed a very low ejection fraction. He states he takes no medications at home on a regular basis, and is only drug ALLERGY is sulfa. Progress note dated 11/17/2020. He 9-year-old male, that we saw in the emergency department yesterday. The patient apparently does not see a doctor on a regular basis. He denies any major medical problems. He came into the emergency room on November 15, complaining of weakness, fatigue, shortness of breath, and lower extremity edema. The patient does smoke a pack of cigarettes a day, and states that he drinks 2 beers a day. In the emergency department, he was noted to have atrial fibrillation with RVR, treated with beta vince, Cardizem, and amiodarone. Currently, the patient remains on IV heparin, via weightbase protocol, amiodarone, 0.5 mg/m, and O2 at 6 L. Today, we did a right-sided thoracentesis, and removed 1200 mL of fluid from the right chest cavity. Tomorrow, we will do the left side. Labs today include a PTT of 62, sodium 1:30, potassium 3.6, chlorides 97, CO2 26, anion gap 7, BUN 18, and creatinine 0.74. Pro-calcitonin level was 0.98. Coronavirus testing was negative. Repeat chest x-ray shows improved aeration to the right lung, with no evidence of pneumothorax. Objective - Vital Signs Vital signs: Vital Signs Temp 98.3 F 11/17/20 09:00 Pulse 93 11/17/20 11:00 Resp 11 L 11/17/20 11:00 BP 115/78 11/17/20 11:00 Pulse Ox 96 11/17/20 11:00 Intake & Output 11/16/20 11/17/20 11/17/20 18:59 06:59 18:59 Intake Total 222.875 563.06 183.247 Output Total 1000 1140 2600 Balance -777.125 -576.94 -2416.753 Weight 73.1 kg Intake: IV 80 240 80 Sodium Chloride 0.9% 1, 80 240 80 000 ml @ 20 mls/hr IV . Q24H ISABELLA Rx#:[id number] Intake, IV Titration 142.875 223.06 103.247 Amount Amiodarone 450 mg In 223.06 Dextrose 5% in Water 250 ml @ 0.5 MG/MIN 16.667 mls/hr IV .Q15H ISAEBLLA Rx#: [id number] Heparin Sod,Pork in 0.45% 142.875 103.247 NaCl 25,000 unit In 0.45 % NaCl 1 250ml.bag @ 18 UNITS/KG/HR 13.064 mls/hr IV .Q19H9M ISABELLA Rx#: [id number] Tube Feeding 100 Output: Drainage 1200 Right Chest 1200 Urine 1000 1140 1400 Other: Voiding Method Indwelling Catheter Indwelling Catheter Indwelling Catheter - Exam Mild conversational dyspnea, oriented 3. Currently on 6 L nasal cannula, with saturations of 96%. HEENT examination is grossly unremarkable. Teeth are in very poor repair. Neck supple. Full range of motion. No adenopathy or thyromegaly. There is neck vein distention. Cardiovascular examination reveals an irregular rhythm and rate. S1-S2 normal. No S3 or S4. No discernible murmur noted. Heart sounds are distant. Heart rate 93 bpm. Lungs reveal scattered rhonchi. A few scattered crackles. Breath sounds equal. A few scattered wheezes are also noted. Breath sounds diminished at the bases. Abdomen soft bowel sounds are heard. No masses or tenderness. Extremities are intact. No cyanosis or clubbing. Lower extremity edema is noted. Skin is without rash or lesion. Neurologic examination is brief but nonfocal. - Labs CBC & Chem 7: 11/16/20 09:52 11/17/20 05:26 Labs: Abnormal Lab Results - Last 24 Hours (Table) 11/16/20 11/16/20 11/16/20 Range/Units 15:28 15:52 18:36 APTT 86.0 H (22.0-30.0) sec Sodium (137-145) mmol/L Chloride (98-107) mmol/L POC Glucose (mg/dL) 127 H 119 H (75-99) mg/dL Calcium (8.4-10.2) mg/dL Procalcitonin (0.02-0.09) ng/mL 11/16/20 11/17/20 11/17/20 Range/Units 18:36 01:53 05:26 APTT 64.9 H (22.0-30.0) sec Sodium 130 L (137-145) mmol/L Chloride 97 L (98-107) mmol/L POC Glucose (mg/dL) (75-99) mg/dL Calcium 8.0 L (8.4-10.2) mg/dL Procalcitonin 0.98 H (0.02-0.09) ng/mL 11/17/20 Range/Units 05:26 APTT 61.8 H (22.0-30.0) sec Sodium (137-145) mmol/L Chloride (98-107) mmol/L POC Glucose (mg/dL) (75-99) mg/dL Calcium (8.4-10.2) mg/dL Procalcitonin (0.02-0.09) ng/mL Assessment and Plan Assessment: Severe cardiomyopathy, with an ejection fraction of less than 20%, and a patient with systolic CHF and bilateral effusions. Atrial fibrillation with RVR, possibly new onset. Bilateral pleural effusions, status post thoracentesis with 1200 mL removed on the right side, on November 17. Medical noncompliance, as patient has not seen a doctor in years. No evidence of pulmonary embolism on CT angiogram. Probable hypervolemic hyponatremia. Anion gap metabolic acidosis. History of chronic alcohol use. History of chronic tobacco use and nicotine addiction, rule out COPD. Plan: Plan dated 11/16/2020. The patient will be admitted into the intensive care unit. I'll add some updrafts, with albuterol sulfate, and ipratropium bromide. Cardiology has seen the patient. Echocardiogram shows a severely impaired left ventricle. A procalcitonin level be done. Additional recommendations and suggestions are forthcoming. Prognosis is guarded. We will continue to follow make recommendations were appropriate. Currently, the patient's on IV heparin, and amiodarone at 0.5 mg/m. Plan dated 11/17/2020. The heparin was stopped. The patient underwent right-sided thoracentesis. 1200 mL of yellow/brown fluid was removed without incident. The pulse thoracentesis x-ray looked much better. There was no complication, i.e. pneumothorax. The left side be done tomorrow. The patient remains on heparin, via weight aced protocol, and amiodarone at 0.5 mg/m. Additional recommendations and suggestions are forthcoming. Prognosis is guarded. The patient also likely has underlying COPD from heavy tobacco make recommendations where appropriate. Time with Patient: Greater than 30
--- NOTE | 2020-11-17 12:21 | P.PN ---
Subjective Progress Note Date: 11/17/20 This is a 59-year-old gentleman who came to the emergency room yesterday with complaints of increasing pedal swelling and shortness of breath and evidence of atrial flutter with rapid ventricular response. Patient was treated with amiodarone and digoxin without control of his heart rate . Patient had a SUSIE cardioversion yesterday with conversion to sinus rhythm. Patient received IV diuretics. Patient has diuresed well since yesterday and feeling much better today. He also had a pleural tap today by pulmonology. He chest x-ray continues to show infiltrate and consolidation. His echocardiogram showed severe LV dysfunction size to cardiomyopathy. We'll continue with current management with amiodarone with oxygen, diuretics, HARJEET inhibitor and Aldactone. Follow his electrolytes closely. Appreciate input from pulmonology. Prognosis is guarded Objective - Vital Signs Vital signs: Vital Signs Temp 98.3 F 11/17/20 09:00 Pulse 93 11/17/20 11:00 Resp 11 L 11/17/20 11:00 BP 115/78 11/17/20 11:00 Pulse Ox 96 11/17/20 11:00 Intake & Output 11/16/20 11/17/20 11/17/20 18:59 06:59 18:59 Intake Total 222.875 563.06 183.247 Output Total 1000 1140 2600 Balance -777.125 -576.94 -2416.753 Weight 73.1 kg Intake: IV 80 240 80 Sodium Chloride 0.9% 1, 80 240 80 000 ml @ 20 mls/hr IV . Q24H ISABELLA Rx#:[id number] Intake, IV Titration 142.875 223.06 103.247 Amount Amiodarone 450 mg In 223.06 Dextrose 5% in Water 250 ml @ 0.5 MG/MIN 16.667 mls/hr IV .Q15H ISABELLA Rx#: [id number] Heparin Sod,Pork in 0.45% 142.875 103.247 NaCl 25,000 unit In 0.45 % NaCl 1 250ml.bag @ 18 UNITS/KG/HR 13.064 mls/hr IV .Q19H9M ISABELLA Rx#: [id number] Tube Feeding 100 Output: Drainage 1200 Right Chest 1200 Urine 1000 1140 1400 Other: Voiding Method Indwelling Catheter Indwelling Catheter Indwelling Catheter - Exam GENERAL EXAM: Patient is alert and oriented and doesn't appear to be in any acute distress HEENT: Normocephalic. Normal reaction of pupils, equal size, normal range of extraocular motion. No erythema or exudates in throat. NECK: No masses, no nuchal rigidity. CHEST: No chest wall deformity. LUNGS: Diminished breath sounds HEART: [S1 and S2 normal with no audible mumurs or gallops. Regular rhythm, femorals equal on both sides..] ABDOMEN: No hepatosplenomegaly, normal bowel sounds, no guarding or rigidity. SKIN: No rashes CENTRAL NERVOUS SYSTEM: No focal deficits. EXTREMITIES: Resolving edema - Labs CBC & Chem 7: 11/16/20 09:52 11/17/20 05:26 Labs: Abnormal Lab Results - Last 24 Hours (Table) 11/16/20 11/16/20 11/16/20 Range/Units 15:28 15:52 18:36 APTT 86.0 H (22.0-30.0) sec Sodium (137-145) mmol/L Chloride (98-107) mmol/L POC Glucose (mg/dL) 127 H 119 H (75-99) mg/dL Calcium (8.4-10.2) mg/dL Procalcitonin (0.02-0.09) ng/mL 11/16/20 11/17/20 11/17/20 Range/Units 18:36 01:53 05:26 APTT 64.9 H (22.0-30.0) sec Sodium 130 L (137-145) mmol/L Chloride 97 L (98-107) mmol/L POC Glucose (mg/dL) (75-99) mg/dL Calcium 8.0 L (8.4-10.2) mg/dL Procalcitonin 0.98 H (0.02-0.09) ng/mL 11/17/20 Range/Units 05:26 APTT 61.8 H (22.0-30.0) sec Sodium (137-145) mmol/L Chloride (98-107) mmol/L POC Glucose (mg/dL) (75-99) mg/dL Calcium (8.4-10.2) mg/dL Procalcitonin (0.02-0.09) ng/mL Assessment and Plan (1) Atrial flutter Current Visit: Yes Status: Acute Code(s): I48.92 - UNSPECIFIED ATRIAL FLUTTER SNOMED Code(s): 4895130 (2) Acute systolic CHF (congestive heart failure), NYHA class 3 Current Visit: Yes Status: Acute Code(s): I50.21 - ACUTE SYSTOLIC (CONGESTIV E) HEART FAILURE SNOMED Code(s): 038109766 (3) Cardiomyopathy Current Visit: Yes Status: Acute Code(s): I42.9 - CARDIOMYOPATHY, UNSPECIFIED SNOMED Code(s): 78021593 (4) COPD (chronic obstructive pulmonary disease) Current Visit: Yes Status: Acute Code(s): J44.9 - CHRONIC OBSTRUCTIVE PULMONARY DISEASE, UNSPECIFIED SNOMED Code(s): 31706494 (5) Pneumonia Current Visit: Yes Status: Acute Code(s): J18.9 - PNEUMONIA, UNSPECIFIED O RGANISM SNOMED Code(s): 861522668 Plan: Continue current management with IV diuretics, amiodarone, digoxin, HARJEET inhibitor and Aldactone. Follow recommendation of pulmonary. Further recommendations depend upon the clinical course
[2020-11-17] MEDS: AMIODARONE 200 MG TAB PO SCH ×2 (15:12→22:04)
[2020-11-17] MEDS: SODIUM CHLORIDE 0.9% 1,000 ML IV SCH ×3 (16:37→21:49)
--- NOTE | 2020-11-17 21:54 | P.PN ---
Subjective This is a pleasant 59 years old male With past medical history of diabetes mellitus, hypertension, hyperlipidemia, GI bleed, hypothyroidism. Presents because of generalized weakness, worsening over 2 weeks.. Found to have A. fib and RVR and severe CHF with ejection fraction less than 20% and a d-dimer was elevated about 3.1, so CTA of the chest was obtained showing no PE but bilateral pleural effusion, patient underwent a thoracocentesis today with 1.0 L removed and Plavix for left thoracotomy cc tomorrow. Also there is an evidence of bilateral infiltrates and mitral regurgitation. Patient remains mildly hypoxic with oxygen saturation low 90s on 3 L oxygen via nasal cannula with evidence of venous congestion patient is placed on Lasix 40 mg 3 times a day. Also he is on heparin drip. Cardiology recommended amiodarone, lisinopril, digoxin. No varicose because blood pressure on the low normal site, currently well 86/54. Mild increase WBC at 13.9 while on steroids. Sodium is 1:30 Patient also is on Augmentin, Lasix IV, heparin drip, no steroids Review of systems CONSTITUTIONAL: No fever, no malaise, no fatigue. HEENT: No recent visual problems or hearing problems. Denied any sore throat. CARDIOVASCULAR: no palpitations, no syncope. PULMONARY: No chest wall tenderness, no hemoptysis. GASTROINTESTINAL: No diarrhea, no nausea, no vomiting, no abdominal pain. Normoactive bowel sounds. Active Medications Generic Name Dose Route Start Last Admin Trade Name Freq PRN Reason Stop Dose Admin Acetaminophen 650 mg 11/15/20 19:34 Acetaminophen Tab 325 Mg Tab PO Q6HR PRN Mild Pain or Fever > 100.5 Albuterol/Ipratropium 3 ml 11/16/20 20:00 11/17/20 19:53 Ipratropium-Albuterol 3 Ml Neb INHALATION 3 ml RT-TID ISABELLA Administration Albuterol/Ipratropium 3 ml 11/16/20 16:30 Ipratropium-Albuterol 3 Ml Neb INHALATION RT-Q2H PRN Shortness Of Breath Or Wheezing Amiodarone HCl 200 mg 11/17/20 16:00 11/17/20 15:12 Amiodarone 200 Mg Tab PO 200 mg TID ISABELLA Administration Amoxicillin/Clavulanate Potassium 1 each 11/17/20 09:15 11/17/20 11:18 Amoxic-Pot Clav 875-125mg 1 Each Tab PO 1 each Q12H ISABELLA Administration Digoxin 125 mcg 11/17/20 09:00 11/17/20 08:04 Digoxin 125 Mcg Tab PO 125 mcg DAILY ISABELLA Administration Furosemide 40 mg 11/16/20 14:00 11/17/20 15:12 Furosemide 10 Mg/Ml 4 Ml Vial IV 40 mg Q8HR ISABELLA Administration Heparin Sodium (Porcine) 0 unit 11/15/20 17:35 Heparin Sodium 1,000 Un/Ml (10ml Vl) IV PER PROTOCOL PRN Low PTT Protocol Heparin Sodium/Sodium Chloride 250 mls @ 13.064 mls/hr 11/15/20 17:45 11/17/20 11:00 25,000 unit/ Sodium Chloride IV 11 units/kg/hr .Q19H9M ISABELLA 7.983 mls/hr Titration Protocol 18 UNITS/KG/HR Sodium Chloride 1,000 mls @ 20 mls/hr 11/15/20 19:45 11/17/20 21:49 Saline 0.9% IV Not Given .Q24H ISABELLA Sodium Chloride 1,000 mls @ 20 mls/hr 11/16/20 15:15 11/17/20 16:37 Saline 0.9% IV 20 mls/hr .Q24H ISABELLA Administration Sodium Chloride 1,000 mls @ 20 mls/hr 11/16/20 16:15 11/17/20 16:37 Saline 0.9% IV Not Given .Q24H ISABELLA Lisinopril 2.5 mg 11/17/20 09:00 11/17/20 08:04 Lisinopril 2.5 Mg Tab PO 2.5 mg DAILY ISABELLA Administration Naloxone HCl 0.2 mg 11/15/20 19:34 Naloxone 0.4 Mg/Ml 1 Ml Vial IV Q2M PRN Opioid Reversal Ondansetron HCl 4 mg 11/15/20 19:34 11/16/20 09:21 Ondansetron 4 Mg/2 Ml Vial IVP 4 mg Q8HR PRN Administration Nausea And Vomiting Pantoprazole Sodium 40 mg 11/15/20 19:45 11/17/20 08:04 Pantoprazole 40 Mg/10 Ml Vial IV 40 mg DAILY ISABELLA Administration Spironolactone 12.5 mg 11/17/20 09:00 11/17/20 08:04 Spironolactone 25 Mg Tab PO 12.5 mg DAILY ISABELLA Administration Objective - Vital Signs Vital signs: Vital Signs Temp 98.2 F 11/17/20 16:00 Pulse 87 11/17/20 20:03 Resp 13 11/17/20 19:00 BP 86/54 11/17/20 19:00 Pulse Ox 93 L 11/17/20 19:56 Intake & Output 11/17/20 11/17/20 11/18/20 06:59 18:59 06:59 Intake Total 563.06 1353.247 40 Output Total 1140 5700 370 Balance -576.94 -4346.753 -330 Weight 73.1 kg Intake: IV 240 220 40 Sodium Chloride 0.9% 1, 240 220 40 000 ml @ 20 mls/hr IV . Q24H ISABELLA Rx#:[id number] Intake, IV Titration 223.06 103.247 Amount Amiodarone 450 mg In 223.06 Dextrose 5% in Water 250 ml @ 0.5 MG/MIN 16.667 mls/hr IV .Q15H ISABELLA Rx#: [id number] Heparin Sod,Pork in 0.45% 103.247 NaCl 25,000 unit In 0.45 % NaCl 1 250ml.bag @ 18 UNITS/KG/HR 13.064 mls/hr IV .Q19H9M ISABELLA Rx#: [id number] Oral 1030 Tube Feeding 100 Output: Drainage 1200 Right Chest 1200 Urine 1140 4500 370 Other: Voiding Method Indwelling Catheter Indwelling Catheter - Exam -GENERAL: The patient is alert and oriented he feels generally weak and lethargic. No respiratory distress HEENT: Pupils are round and equally reacting to light. EOMI. No scleral icterus. No conjunctival pallor. Normocephalic, atraumatic. No pharyngeal erythema. No thyromegaly. CARDIOVASCULAR: S1 and S2 present. No murmurs, rubs, or gallops. -PULMONARY: Chest is clear to auscultation, no wheezing . Bilateral basal crackles. ABDOMEN: Soft, nontender, nondistended, normoactive bowel sounds. No palpable organomegaly. MUSCULOSKELETAL: No joint swelling or deformity. -EXTREMITIES: No cyanosis, clubbing, . Bilateral patellar leg edema NEUROLOGICAL: Gross neurological examination did not reveal any focal deficits. SKIN: No rashes. no petechiae. - Labs CBC & Chem 7: 11/16/20 09:52 11/17/20 05:26 Labs: Abnormal Lab Results - Last 24 Hours (Table) 11/16/20 11/17/20 11/17/20 Range/Units 18:36 01:53 05:26 APTT 64.9 H (22.0-30.0) sec Sodium 130 L (137-145) mmol/L Chloride 97 L (98-107) mmol/L Calcium 8.0 L (8.4-10.2) mg/dL Procalcitonin 0.98 H (0.02-0.09) ng/mL 11/17/20 11/17/20 Range/Units 05:26 10:03 APTT 61.8 H (22.0-30.0) sec Sodium (137-145) mmol/L Chloride (98-107) mmol/L Calcium (8.4-10.2) mg/dL Procalcitonin 1.12 H (0.02-0.09) ng/mL Microbiology - Last 24 Hours (Table) 11/17/20 10:00 Urine Culture - Preliminary Urine,Catheterized Assessment and Plan Assessment: Severe systolic congestive heart failure with ejection fraction less than 20% A. fib and RVR status post SUSIE and cardioversion on 11/16 Bilateral pleural effusion status post thoracocentesis, right on 11/17 and left on 11/18 Mitral regurgitation Bilateral infiltrates suspicious for pneumonia Generalized weakness secondary to above Acute hypoxic respiratory failure secondary to above Mild hypervolemic hyponatremia Plan: This is a pleasant 59 years old male who presents with CHF, A. fib, bilateral p leural effusion. Patient is undergoing thoracocentesis. He is on Augmentin, IV Lasix and heparin drip. Also he is on amiodarone, digoxin, HARJEET inhibitor and Aldactone. Cardiology and pulmonary/critical care team on the case Labs and medication were reviewed.. Continue same treatment. Continue with symptomatic treatment. Resume home medication. Monitor lytes and vitals. DVT and GI prophylaxis. Further recommendationsas per clinical course of the patient DVT prophylaxis: heparin GI Prophylaxis: Ppi Prognosis is guarded
[2020-11-17] MEDS ORDERED: MORPHINE SULFATE 4 MG/ML SYRINGE IVP STA (23:24)
[2020-11-17] MEDS ORDERED: HALOPERIDOL LACTATE 5 MG/ML 1 ML VIAL IVP PRN (23:34)
[2020-11-18 00:01] LABS: Basophils % (A) 0 %; Eosinophils # (A) 0.1 k/uL (0-0.7); Eosinophils % (A) 1 %; HCT 45.1 % (39.0-53.0); Lymphocytes # (A) 0.6 k/uL (1.0-4.8); Lymphocytes % (A) 5 %; MCH 32.9 pg (25.0-35.0); MCHC 33.2 g/dL (31.0-37.0); MCV 99.2 fL (80.0-100.0); Monocytes # (A) 1.2 k/uL (0-1.0); Monocytes % (A) 10 %; Neutrophils # (A) 9.6 k/uL (1.3-7.7); Neutrophils % (A) 83 %; Platelet Count 173 k/uL (150-450); RBC 4.54 m/uL (4.30-5.90); RDW 13.3 % (11.5-15.5); WBC 11.6 k/uL (3.8-10.6)
[2020-11-18 00:26] LABS: African American GFR (CKD) >90 (>60 ml/min/1.73 sqM); Albumin 2.6 g/dL (3.5-5.0); Alkaline Phosphatase 96 U/L (38-126); Anion Gap 10 mmol/L; Blood Urea Nitrogen 13 mg/dL (9-20); Calcium 7.6 mg/dL (8.4-10.2); Carbon Dioxide 29 mmol/L (22-30); Chloride 87 mmol/L (98-107); Glucose 129 mg/dL (74-99); Magnesium 1.2 mg/dL (1.6-2.3); Non-African American GFR(CKD) >90 (>60 ml/min/1.73 sqM); Phosphorus 2.5 mg/dL (2.5-4.5); Potassium 3.1 mmol/L (3.5-5.1); Sodium 126 mmol/L (137-145); Total Bilirubin 1.8 mg/dL (0.2-1.3); Total Protein 5.1 g/dL (6.3-8.2)
[2020-11-18 00:32] LABS: ALT 435 U/L (4-49)
[2020-11-18 00:36] LABS: AST 886 U/L (17-59)
[2020-11-18] MEDS ORDERED: MORPHINE SULFATE 4 MG/ML SYRINGE IVP PRN (00:36)
[2020-11-18] MEDS: FUROSEMIDE 10 MG/ML 4 ML VIAL IV SCH ×2 (00:43→09:44)
--- NOTE | 2020-11-18 00:53 | P.EN ---
code blue note please refer to paper chart for full documentation of the code events patient experienced a cardiopulmonary arrest and found to have pulseless Vfib , DC shock delivered ,and patient had a successful ROSC. patient was awake after that and did not require intubation , he had just finished an amiodrip for afib and currently on PO amiodarone , labs reviewed patient started on morphine PRN for pain after the shock patient is planned to have left heart cath in AM cardiology paged for further recommendations
[2020-11-18] MEDS ORDERED: MAGNESIUM SULFATE-D5W PMX 1 GM in DEXTROSE/WATER 1 100ML.BAG IVPB SCH (01:00)
[2020-11-18] MEDS: POTASSIUM CHLORIDE 10 MEQ in WATER FOR INJECTION 1 100ML.BAG IVPB SCH ×3 (01:07→05:20)
[2020-11-18] MEDS: HEPARIN SOD,PORK IN 0.45% NACL 25,000 UNIT in 0.45% NACL 1 250ML.BAG IV SCH (04:06)
[2020-11-18] MEDS: HEPARIN SODIUM 1,000 UN/ML (10ML VL) IV PRN (04:09)
[2020-11-18] MEDS: ONDANSETRON 4 MG/2 ML VIAL IVP PRN (04:22)
[2020-11-18 04:38] LABS: HCT 40.5 % (39.0-53.0); HGB 14.2 gm/dL (13.0-17.5); MCV 97.3 fL (80.0-100.0); Mean Platelet Volume 7.9; Platelet Count 175 k/uL (150-450); RBC 4.16 m/uL (4.30-5.90); RDW 13.3 % (11.5-15.5); WBC 12.1 k/uL (3.8-10.6)
[2020-11-18 05:30] LABS: African American GFR (CKD) >90 (>60 ml/min/1.73 sqM); Anion Gap 4 mmol/L; Blood Urea Nitrogen 11 mg/dL (9-20); Calcium 7.3 mg/dL (8.4-10.2); Carbon Dioxide 34 mmol/L (22-30); Chloride 89 mmol/L (98-107); Digoxin 0.7 ng/mL; Glucose 102 mg/dL (74-99); Magnesium 1.5 mg/dL (1.6-2.3); Non-African American GFR(CKD) >90 (>60 ml/min/1.73 sqM); Potassium 2.9 mmol/L (3.5-5.1); Sodium 127 mmol/L (137-145)
[2020-11-18] MEDS: IPRATROPIUM-ALBUTEROL 3 ML NEB INHALATION SCH ×3 (07:15→19:36)
[2020-11-18] MEDS: MAGNESIUM SULFATE-D5W PMX 1 GM in DEXTROSE/WATER 1 100ML.BAG IVPB SCH ×4 (08:06→16:30)
[2020-11-18] MEDS: AMIODARONE 200 MG TAB PO SCH ×3 (08:56→21:15)
[2020-11-18] MEDS: SPIRONOLACTONE 25 MG TAB PO SCH (08:56)
[2020-11-18] MEDS: PANTOPRAZOLE 40 MG/10 ML VIAL IV SCH (08:57)
[2020-11-18] MEDS: AMOXIC-POT CLAV 875-125MG 1 EACH TAB PO SCH ×2 (08:59→21:15)
[2020-11-18] MEDS: DIGOXIN 125 MCG TAB PO SCH (08:59)
[2020-11-18] MEDS ORDERED: CALCIUM GLUCONATE 2 GM in SODIUM CHLORIDE 0.9% 100 ML IVPB ONE (09:00)
[2020-11-18] MEDS ORDERED: Potassium Replacement Protocol 1 EACH MISC MISCELLANE PRN ×2 (09:22→13:59)
--- NOTE | 2020-11-18 09:40 | XR ---
EXAMINATION TYPE: XR chest 1V DATE OF EXAM: 11/18/2020 COMPARISON: 11/17/2020 HISTORY: Post left thoracentesis TECHNIQUE: Single frontal view of the chest is obtained. FINDINGS: No sizable pneumothorax. Interval marked reduction in amount of pleural fluid on the left with persistent bilateral infiltrates and small right effusion. Heart size stable. Biapical pleural t hickening. Arthropathy of the shoulders. Suggestion chronic rib deformity bilaterally. IMPRESSION: 1. Cardiomegaly with bilateral infiltrate and small effusions. Marked reduction in amount of pleural fluid on the left postthoracentesis. 2. No pneumothorax.
[2020-11-18] MEDS ORDERED: POTASSIUM CHLORIDE ER 20 MEQ TAB.ER PO SCH (10:00)
--- NOTE | 2020-11-18 10:53 | P.PN ---
Subjective Progress Note Date: 11/18/20 Principal diagnosis: New onset cardiomyopathy, A. fib with RVR, acute systolic CHF exacerbation 59-year-old male, that we saw in the emergency department yesterday. The patient apparently does not see a doctor on a regular basis. He denies any major medical problems. He came into the emergency room on November 15, complaining of weakness, fatigue, shortness of breath, and lower extremity edema. The patient does smoke a pack of cigarettes a day, and states that he drinks 2 beers a day. In the emergency department, he was noted to have atrial fibrillation with RVR, treated with beta vince, Cardizem, and amiodarone. Currently, the patient remains on IV heparin, via weightbase protocol, amiodarone, 0.5 mg/m, and O2 at 6 L. Today, we did a right-sided thoracentesis, and removed 1200 mL of fluid from the right chest cavity. Tomorrow, we will do the left side. Labs today include a PTT of 62, sodium 1:30, potassium 3.6, chlorides 97, CO2 26, anion gap 7, BUN 18, and creatinine 0.74. Pro-calcitonin level was 0.98. Coronavirus testing was negative. Repeat chest x-ray shows improved aeration to the right lung, with no evidence of pneumothorax. On 11/18/2020 patient seen in follow-up in the intensive care unit, last night he had a run of V. Fib, and required CPR and synchronized cardioversion which was successful, with return of spontaneous circulation. Rhythm strips reveal V. fib which resembles torsade V. fib. He was given IV amiodarone, currently on oral amiodarone, patient has been extensively diuresed, had been on 40 mg of Lasix 3 times daily, and he had produced 7.3 L in urine output over the last 24 hours, and he is in -5.5 L over the last 24 hours, he had low potassium, low calcium, and low magnesium. His potassium is 2.9 and today's labs, magnesium is 1.5 and this was previously at 1.2 patient was given 2 g of magnesium sulfate, his calcium level is 7.3. His sodium level is persistently low at 127, his chloride is 89, his CO2 is 34. His lower extremity edema has improved, he is seems to be breathing comfortably, he is on 4 L of oxygen her pulse oximetry 97%, he status post right-sided thoracentesis today with removal of 1.2 L of yellow fluid, and the pleural fluid analysis and cultures were ordered on the fluid however it was inadvertently discarded. Follow-up chest x-ray showed no right-sided pneumothorax with improved right-sided pleural effusion, and some new central mild right alveolar reexpansion pulmonary edema. Patient still has persistent small to moderate sized left pleural effusion and he underwent left-sided thoracentesis this morning and another 1.2 L of yellow fluid was removed and sent for analysis cultures and cytology. Patient tolerated procedure well, post procedure chest x-ray showed cardiomegaly with bilateral infiltrates and small effusions, and marked reduction in the amount of pleural fluid on the left, no evidence of pneumothorax. Patient has had no fever or chills, he is on oral Augmentin for possibility of infection. No cough, no hemoptysis, today's white blood cell count is 12.1, hemoglobin is 14.2. His urine culture was sent and pending at this time, his sputum culture showed many PMNs, many gram-positive cocci, a few gram-negative bacilli and rare gram- positive bacilli. Objective - Vital Signs Vital signs: Vital Signs Temp 97.9 F 11/18/20 08:00 Pulse 82 11/18/20 10:00 Resp 11 L 11/18/20 10:00 BP 95/68 11/18/20 10:00 Pulse Ox 97 11/18/20 10:00 Intake & Output 11/17/20 11/18/20 11/18/20 18:59 06:59 18:59 Intake Total 1353.247 396.509 327.583 Output Total 5700 1620 1515 Balance -4346.753 -1223.491 -1187.417 Weight 66.2 kg Intake: IV 220 260 60 Sodium Chloride 0.9% 1, 220 260 60 000 ml @ 20 mls/hr IV . Q24H [facility] Rx#:[id number] Intake, IV Titration 103.247 136.509 37.583 Amount Heparin Sod,Pork in 0.45% 103.247 136.509 37.583 NaCl 25,000 unit In 0.45 % NaCl 1 250ml.bag @ 18 UNITS/KG/HR 13.064 mls/hr IV .Q19H9M [facility] Rx#: [id number] Oral 1030 230 Output: Drainage 1200 1200 Left Chest 1200 Right Chest 1200 Urine 4500 1620 315 Other: Voiding Method Indwelling Catheter Indwelling Catheter Indwelling Catheter - Exam GENERAL EXAM: Alert, pleasant, 59-year-old white male, on 4 L of oxygen and the pulse ox of 97% comfortable in no apparent distress. HEAD: Normocephalic/atraumatic. EYES: Normal reaction of pupils, equal size. Conjunctiva pink, sclera white. NOSE: Clear with pink turbinates. THROAT: No erythema or exudates. NECK: No masses, no JVD, no thyroid enlargement, no adenopathy. CHEST: No chest wall deformity. Symmetrical expansion. LUNGS: Equal air entry with diminished breath sounds with basilar crackles CVS: Regular rate and rhythm, normal S1 and S2, no gallops, no murmurs, no rubs ABDOMEN: Soft, nontender. No hepatosplenomegaly, normal bowel sounds, no guarding or rigidity. EXTREMITIES: No clubbing, mild lower extremity edema, no cyanosis, 2+ pulses and upper and lower extremities. MUSCULOSKELETAL: Muscle strength and tone normal. SPINE: No scoliosis or deformity SKIN: No rashes CENTRAL NERVOUS SYSTEM: Alert and oriented -3. No focal deficits, tone is normal in all 4 extremities. PSYCHIATRIC: Alert and oriented -3. Appropriate affect. Intact judgment and insight. - Labs CBC & Chem 7: 11/18/20 04:08 11/18/20 08:35 Labs: Abnormal Lab Results - Last 24 Hours (Table) 11/17/20 11/17/20 11/17/20 Range/Units 10:03 23:30 23:30 WBC 11.6 H (3.8-10.6) k/uL RBC (4.30-5.90) m/uL Neutrophils # 9.6 H (1.3-7.7) k/uL Lymphocytes # 0.6 L (1.0-4.8) k/uL Monocytes # 1.2 H (0-1.0) k/uL APTT (22.0-30.0) sec Sodium 126 L (137-145) mmol/L Potassium 3.1 L (3.5-5.1) mmol/L Chloride 87 L (98-107) mmol/L Carbon Dioxide (22-30) mmol/L Creatinine 0.55 L (0.66-1.25) mg/dL Glucose 129 H (74-99) mg/dL Calcium 7.6 L (8.4-10.2) mg/dL Magnesium 1.2 L (1.6-2.3) mg/dL Total Bilirubin 1.8 H (0.2-1.3) mg/dL AST 886 H (17-59) U/L ALT 435 H (4-49) U/L Total Protein 5.1 L (6.3-8.2) g/dL Albumin 2.6 L (3.5-5.0) g/dL Procalcitonin 1.12 H (0.02-0.09) ng/mL 11/17/20 11/18/20 11/18/20 Range/Units 23:30 04:08 04:08 WBC 12.1 H (3.8-10.6) k/uL RBC 4.16 L (4.30-5.90) m/uL Neutrophils # (1.3-7.7) k/uL Lymphocytes # (1.0-4.8) k/uL Monocytes # (0-1.0) k/uL APTT 41.0 H (22.0-30.0) sec Sodium 127 L (137-145) mmol/L Potassium 2.9 L (3.5-5.1) mmol/L Chloride 89 L (98-107) mmol/L Carbon Dioxide 34 H (22-30) mmol/L Creatinine 0.44 L (0.66-1.25) mg/dL Glucose 102 H (74-99) mg/dL Calcium 7.3 L (8.4-10.2) mg/dL Magnesium 1.5 L (1.6-2.3) mg/dL Total Bilirubin (0.2-1.3) mg/dL AST (17-59) U/L ALT (4-49) U/L Total Protein (6.3-8.2) g/dL Albumin (3.5-5.0) g/dL Procalcitonin (0.02-0.09) ng/mL 11/18/20 Range/Units 04:08 WBC (3.8-10.6) k/uL RBC (4.30-5.90) m/uL Neutrophils # (1.3-7.7) k/uL Lymphocytes # (1.0-4.8) k/uL Monocytes # (0-1.0) k/uL APTT 59.2 H (22.0-30.0) sec Sodium (137-145) mmol/L Potassium (3.5-5.1) mmol/L Chloride (98-107) mmol/L Carbon Dioxide (22-30) mmol/L Creatinine (0.66-1.25) mg/dL Glucose (74-99) mg/dL Calcium (8.4-10.2) mg/dL Magnesium (1.6-2.3) mg/dL Total Bilirubin (0.2-1.3) mg/dL AST (17-59) U/L ALT (4-49) U/L Total Protein (6.3-8.2) g/dL Albumin (3.5-5.0) g/dL Procalcitonin (0.02-0.09) ng/mL Microbiology - Last 24 Hours (Table) 11/17/20 19:57 Gram Stain - Preliminary Sputum Sputum Culture - Preliminary 11/17/20 10:00 Urine Culture - Preliminary Urine,Catheterized Assessment and Plan Plan: Assessment: #1. Severe cardiomyopathy, with ejection fraction of less than 20%, and patient presented with acute systolic CHF and bilateral pleural effusions #2. Atrial fibrillation with RVR, new onset #3. Episode of V. fib, possibly torsade, pulseless, patient received CPR and synchronous cardioversion on 11/17/2020 with ROSC #4. Bilateral pleural effusions, status post right-sided thoracentesis with 1.2 L removed on 11/17/2020, and left-sided thoracentesis with 1.2 L removed on 11/18/2020 right #5. Multiple electrolyte abnormalities, including hyponatremia, hypokalemia, hypomagnesemia and hypocalcemia #6. Elevated d-dimer with no evidence of PE on the CTA chest #7. Anion gap metabolic acidosis #8. History of chronic alcohol use #9. History of chronic tobacco use and nicotine addiction rule out COPD Plan: We'll stop the diuretics for now We will correct the electrolyte disturbance, place potassium per protocol, continue Aldactone, replace calcium and magnesium Left-sided thoracentesis was tolerated very well, and pleural fluid was sent for analysis cytology and cultures No recurrence of V. fib Cardiology is following, she is currently on amiodarone and digoxin Anticoagulation per cardiology Continue oral antibiotics Continue to follow in the intensive care unit I performed a history & physical examination of the patient and discussed their management with my nurse practitioner, Luana Calle. I reviewed the nurse practitioner's note and agree with the documented findings and plan of care. Lung sounds are positive for diminished breath sounds with crackles. The findings and the impression was discussed with the patient. I attest to the documentation by the nurse practitioner. Time with Patient: Greater than 30
--- NOTE | 2020-11-18 10:58 | PCN ---
PROCEDURE NOTE PROCEDURE: Left thoracentesis. There was informed consent and universal timeout. OPERATORS: Dr. Ojeda, Dr. Panchal, Dr. Calle. Indication Pleural effusion. A time-out was completed verifying correct patient, procedure, site, positioning, and implant (s) or special equipment if applicable. Ultrasound guidance was used and appropriate fluid pocket was identified and marked. Patient was positioned, prepped and draped in usual sterile fashion. Lidocaine was used to anesthetize the area. A Thoracentesis catheter was introduced into the pleural space and fluid was removed. Blood loss was none. A chest x-ray was ordered to evaluate for pneumothorax. Total Fluid Removed: 1.2 L. Color of Fluid: Yellow fluid. Fluid was sent for appropriate laboratory tests. Patient tolerated the procedure well and there were no complications. The patient's procedure took place in room 264, nurse was Evelia Mackay. The left posterior chest was marked by ultrasound and 1.2 L of yellow fluid was removed from the left pleural space. The patient tolerated the procedure well. There was no immediate complication. A chest x-ray was ordered. Yesterday fluid apparently was not sent for analysis so today's fluid will be sent for analysis. This will include cytology, chemistry, and microbiology. There was no immediate complication. The patient tolerated the procedure well. MMODL / IJN: [id number] /
[2020-11-18 12:29] LABS: Appearance,BF Clear; Color,BF Yellow; Nucleated Cells, Body Fluid 300 /uL; RBC, Body Fluid 375 /uL
[2020-11-18 12:41] LABS: Mononuclear WBC,Body Fluid 70 %; Polynuclear WBC,Body Fluid 30 %; Total Cells Counted,Body Fluid 100
[2020-11-18 13:00] LABS: Magnesium 1.9 mg/dL (1.6-2.3); Potassium 3.5 mmol/L (3.5-5.1)
[2020-11-18] MEDS ORDERED: Magnesium Replacement Protocol 1 EACH MISC MISCELLANE PRN (13:58)
[2020-11-18] MEDS: POTASSIUM CHLORIDE ER 20 MEQ TAB.ER PO SCH ×2 (15:15→16:30)
--- NOTE | 2020-11-18 16:28 | P.PN ---
Subjective Progress Note Date: 11/18/20 This is a 59-year-old gentleman who came to the emergency room yesterday with complaints of increasing pedal swelling and shortness of breath and evidence of atrial flutter with rapid ventricular response. Patient was treated with amiodarone and digoxin without control of his heart rate . Patient had a SUSIE cardioversion yesterday with conversion to sinus rhythm. Patient received IV diuretics. Patient has diuresed well since yesterday and feeling much better today. He also had a pleural tap today by pulmonology. He chest x-ray continues to show infiltrate and consolidation. His echocardiogram showed severe LV dysfunction size to cardiomyopathy. We'll continue with current management with amiodarone with oxygen, diuretics, HARJEET inhibitor and Aldactone. Follow his electrolytes closely. Appreciate input from pulmonology. Prognosis is guarded 11/18/2020: This patient has a screedman very well overnight. However developed intermittent hypokalemia and also hypomagnesemia. Patient had an episode of polymorphic V. tach. Patient required brief CPR and shock with [facility] of the sinus rhythm. Patient is a currently hemodynamically stable. Neurologically stable. His edema has cleared. Patient had bilateral PLEURAL tap. Potassium and magnesium are being corrected. IV Lasix is being held. Aldactone be continued. Patient is feeling better. No complaints of any chest pain or shortness of breath. Because of polymorphic V. tach, I'm discontinuing Lanoxin. We'll continue therapy with amiodarone. His lungs appeared to be clear. Heart is regular. We'll continue his current medical therapy. Sputum cultures sent. The blood cultures being obtained. He patient remains stable, we'll consider cardiac catheterization to rule out ischemic heart disease, probably within next 48 hours or so. We'll increase activity as tolerated Objective - Vital Signs Vital signs: Vital Signs Temp 98.3 F 11/18/20 12:00 Pulse 75 11/18/20 15:00 Resp 9 L 11/18/20 15:00 BP 91/58 11/18/20 15:00 Pulse Ox 99 11/18/20 15:00 Intake & Output 11/17/20 11/18/20 11/18/20 18:59 06:59 18:59 Intake Total 1353.247 396.509 657.583 Output Total 5700 1620 2115 Balance -4346.753 -1223.491 -1457.417 Weight 66.2 kg Intake: IV 220 260 160 Sodium Chloride 0.9% 1, 220 260 160 000 ml @ 20 mls/hr IV . Q24H [facility] Rx#:[id number] Intake, IV Titration 103.247 136.509 37.583 Amount Heparin Sod,Pork in 0.45% 103.247 136.509 37.583 NaCl 25,000 unit In 0.45 % NaCl 1 250ml.bag @ 18 UNITS/KG/HR 13.064 mls/hr IV .Q19H9M [facility] Rx#: [id number] Oral 1030 460 Output: Drainage 1200 1200 Left Chest 1200 Right Chest 1200 Urine 4500 1620 915 Other: Voiding Method Indwelling Catheter Indwelling Catheter Indwelling Catheter - Exam GENERAL EXAM: Patient is alert and oriented and doesn't appear to be in any acute distress HEENT: Normocephalic. Normal reaction of pupils, equal size, normal range of extraocular motion. No erythema or exudates in throat. NECK: No masses, no nuchal rigidity. CHEST: No chest wall deformity. LUNGS: Diminished breath sounds HEART: [S1 and S2 normal with no audible mumurs or gallops. Regular rhythm, femorals equal on both sides..] ABDOMEN: No hepatosplenomegaly, normal bowel sounds, no guarding or rigidity. SKIN: No rashes CENTRAL NERVOUS SYSTEM: No focal deficits. EXTREMITIES: Resolving edema - Labs CBC & Chem 7: 11/18/20 04:08 11/18/20 12:22 Labs: Abnormal Lab Results - Last 24 Hours (Table) 11/17/20 11/17/20 11/17/20 Range/Units 23:30 23:30 23:30 WBC 11.6 H (3.8-10.6) k/uL RBC (4.30-5.90) m/uL Neutrophils # 9.6 H (1.3-7.7) k/uL Lymphocytes # 0.6 L (1.0-4.8) k/uL Monocytes # 1.2 H (0-1.0) k/uL APTT 41.0 H (22.0-30.0) sec Sodium 126 L (137-145) mmol/L Potassium 3.1 L (3.5-5.1) mmol/L Chloride 87 L (98-107) mmol/L Carbon Dioxide (22-30) mmol/L Creatinine 0.55 L (0.66-1.25) mg/dL Glucose 129 H (74-99) mg/dL Calcium 7.6 L (8.4-10.2) mg/dL Magnesium 1.2 L (1.6-2.3) mg/dL Total Bilirubin 1.8 H (0.2-1.3) mg/dL AST 886 H (17-59) U/L ALT 435 H (4-49) U/L Total Protein 5.1 L (6.3-8.2) g/dL Albumin 2.6 L (3.5-5.0) g/dL 11/18/20 11/18/20 11/18/20 Range/Units 04:08 04:08 04:08 WBC 12.1 H (3.8-10.6) k/uL RBC 4.16 L (4.30-5.90) m/uL Neutrophils # (1.3-7.7) k/uL Lymphocytes # (1.0-4.8) k/uL Monocytes # (0-1.0) k/uL APTT 59.2 H (22.0-30.0) sec Sodium 127 L (137-145) mmol/L Potassium 2.9 L (3.5-5.1) mmol/L Chloride 89 L (98-107) mmol/L Carbon Dioxide 34 H (22-30) mmol/L Creatinine 0.44 L (0.66-1.25) mg/dL Glucose 102 H (74-99) mg/dL Calcium 7.3 L (8.4-10.2) mg/dL Magnesium 1.5 L (1.6-2.3) mg/dL Total Bilirubin (0.2-1.3) mg/dL AST (17-59) U/L ALT (4-49) U/L Total Protein (6.3-8.2) g/dL Albumin (3.5-5.0) g/dL 11/18/20 Range/Units 12:22 WBC (3.8-10.6) k/uL RBC (4.30-5.90) m/uL Neutrophils # (1.3-7.7) k/uL Lymphocytes # (1.0-4.8) k/uL Monocytes # (0-1.0) k/uL APTT 49.1 H (22.0-30.0) sec Sodium (137-145) mmol/L Potassium (3.5-5.1) mmol/L Chloride (98-107) mmol/L Carbon Dioxide (22-30) mmol/L Creatinine (0.66-1.25) mg/dL Glucose (74-99) mg/dL Calcium (8.4-10.2) mg/dL Magnesium (1.6-2.3) mg/dL Total Bilirubin (0.2-1.3) mg/dL AST (17-59) U/L ALT (4-49) U/L Total Protein (6.3-8.2) g/dL Albumin (3.5-5.0) g/dL Microbiology - Last 24 Hours (Table) 11/18/20 08:10 Acid Fast Bacilli Culture - Preliminary Pleural Fluid 11/18/20 08:10 Body Fluid Culture - Preliminary Pleural Fluid 11/18/20 08:10 Fungal Culture - Preliminary Pleural Fluid 11/17/20 10:03 Blood Culture - Preliminary Blood No Growth after 24 hours 11/17/20 10:00 Urine Culture - Final Urine,Catheterized 11/17/20 19:57 Gram Stain - Preliminary Sputum Sputum Culture - Preliminary Assessment and Plan (1) Atrial flutter Current Visit: Yes Status: Acute Code(s): I48.92 - UNSPECIFIED ATRIAL FLUTTER SNOMED Code(s): 1124380 (2) Acute systolic CHF (congestive heart failure), NYHA class 3 Current Visit: Yes Status: Acute Code(s): I50.21 - ACUTE SYSTOLIC (CONGESTIVE) HEART FAILURE SNOMED Code(s): 980795989 (3) Cardiomyopathy Current Visit: Yes Status: Acute Code(s): I42.9 - CARDIOMYOPATHY, UNSPECIFIED SNOMED Code(s): 80374862 (4) COPD (chronic obstructive pulmonary disease) Current Visit: Yes Status: Acute Code(s): J44.9 - CHRONIC OBSTRUCTIVE PULMONARY DISEASE, UNSPECIFIED SNOMED Code(s): 63818459 (5) Pneumonia Current Visit: Yes Status: Acute Code(s): J18.9 - PNEUMONIA, UNSPECIFIED ORGANISM SNOMED Code(s): 183726967 (6) Polymorphic ventricular tachycardia Current Visit: Yes Status: Acute Code(s): I47.2 - VENTRICULAR TACHYCARDIA SNOMED Code(s): 878210798 Plan: Patient is in sinus rhythm. Edema has cleared. Breathing has improved. No complex of any chest pain. We'll discontinue Lanoxin. Continue with his and because beta blockers and Aldactone. We'll consider cardiac cath with 48 hours to rule out any underlying ischemic heart disease. Patient also being treated empirically with antibiotics
[2020-11-18] MEDS: SODIUM CHLORIDE 0.9% 1,000 ML IV SCH ×3 (17:10→21:15)
[2020-11-18 22:00] LABS: Magnesium 1.8 mg/dL (1.6-2.3); Potassium 3.9 mmol/L (3.5-5.1)
--- NOTE | 2020-11-19 00:56 | P.PN ---
Subjective This is a pleasant 59 years old male With past medical history of diabetes mellitus, hypertension, hyperlipidemia, GI bleed, hypothyroidism. Presents because of generalized weakness, worsening over 2 weeks.. Found to have A. fib and RVR and severe CHF with ejection fraction less than 20% and a d-dimer was elevated about 3.1, so CTA of the chest was obtained showing no PE but bilateral pleural effusion, patient underwent a thoracocentesis today with 1.0 L removed and Plavix for left thoracotomy cc tomorrow. Also there is an evidence of bilateral infiltrates and mitral regurgitation. Patient remains mildly hypoxic with oxygen saturation low 90s on 3 L oxygen via nasal cannula with evidence of venous congestion patient is placed on Lasix 40 mg 3 times a day. Also he is on heparin drip. Cardiology recommended amiodarone, lisinopril, digoxin. No varicose because blood pressure on the low normal site, currently well 86/54. Mild increase WBC at 13.9 while on steroids. Sodium is 1:30 Patient also is on Augmentin, Lasix IV, heparin drip, no steroids 11/18/2020 Patient lying in bed comfortable not in distress, no chest pain or dyspnea, no exertional dyspnea because he stayed in bed. No other specific or new complaints. He is saturating 91-94% on 4 L/m of oxygen. Potassium 2.9 and magnesium 1.5 been replaced This Lasix. Because his edema resolved, electrolytes abnormalities are correct per Protocol. Cardiology are pending for cardiac cath Review of systems CONSTITUTIONAL: No fever, no malaise, no fatigue. HEENT: No recent visual problems or hearing problems. Denied any sore throat. CARDIOVASCULAR: no palpitations, no syncope. PULMONARY: No chest wall tenderness, no hemoptysis. GASTROINTESTINAL: No diarrhea, no nausea, no vomiting, no abdominal pain. Normoactive bowel sounds. Active Medications Generic Name Dose Route Start Last Admin Trade Name Freq PRN Reason Stop Dose Admin Acetaminophen 650 mg 11/15/20 19:34 Acetaminophen Tab 325 Mg Tab PO Q6HR PRN Mild Pain or Fever > 100.5 Albuterol/Ipratropium 3 ml 11/16/20 20:00 11/18/20 19:36 Ipratropium-Albuterol 3 Ml Neb INHALATION 3 ml RT-TID ISABELLA Administration Albuterol/Ipratropium 3 ml 11/16/20 16:30 Ipratropium-Albuterol 3 Ml Neb INHALATION RT-Q2H PRN Shortness Of Breath Or Wheezing Amiodarone HCl 200 mg 11/17/20 16:00 11/18/20 21:15 Amiodarone 200 Mg Tab PO 200 mg TID ISABELLA Administration Amoxicillin/Clavulanate Potassium 1 each 11/17/20 09:15 11/18/20 21:15 Amoxic-Pot Clav 875-125mg 1 Each Tab PO 1 each Q12H ISABELLA Administration Heparin Sodium (Porcine) 0 unit 11/15/20 17:35 11/18/20 04:09 Heparin Sodium 1,000 Un/Ml (10ml Vl) IV 2,920 unit PER PROTOCOL PRN Administration Low PTT Protocol Heparin Sodium/Sodium Chloride 250 mls @ 13.064 mls/hr 11/15/20 17:45 11/18/20 10:00 25,000 unit/ Sodium Chloride IV 13 units/kg/hr .Q19H9M ISABELLA 9.435 mls/hr Titration Protocol 18 UNITS/KG/HR Sodium Chloride 1,000 mls @ 20 mls/hr 11/15/20 19:45 11/18/20 21:15 Saline 0.9% IV 20 mls/hr .Q24H ISABELLA Administration Sodium Chloride 1,000 mls @ 20 mls/hr 11/16/20 15:15 11/18/20 17:10 Saline 0.9% IV Not Given .Q24H ISABELLA Sodium Chloride 1,000 mls @ 20 mls/hr 11/16/20 16:15 11/18/20 17:12 Saline 0.9% IV Not Given .Q24H ISABELLA Potassium Chloride 10 meq/ IV 100 mls @ 100 mls/hr 11/18/20 23:30 Solution IVPB 11/19/20 01:29 Q1H ISABELLA Protocol Magnesium Sulfate/Dextrose 1 100 mls @ 100 mls/hr 11/18/20 23:30 gm/ IV Solution IVPB 11/19/20 01:29 Q1H ISABELLA Lisinopril 2.5 mg 11/17/20 09:00 11/18/20 08:57 Lisinopril 2.5 Mg Tab PO 2.5 mg DAILY ISABELLA Administration Miscellaneous Information 1 each 11/18/20 09:22 Potassium Replacement Protocol 1 Each Misc MISCELLANE DAILY PRN Per Protocol Protocol Miscellaneous Information 1 each 11/18/20 13:58 Magnesium Replacement Protocol 1 Each [facility] [place] DAILY PRN Per Protocol Protocol Miscellaneous Information 1 each 11/18/20 13:59 Potassium Replacement Protocol 1 Each [facility] [place]ANE DAILY PRN Per Protocol Protocol Morphine Sulfate 4 mg 11/18/20 00:36 Morphine Sulfate 4 Mg/Ml Syringe IVP Q4HR PRN Pain Naloxone HCl 0.2 mg 11/15/20 19:34 Naloxone 0.4 Mg/Ml 1 Ml Vial IV Q2M PRN Opioid Reversal Ondansetron HCl 4 mg 11/15/20 19:34 11/18/20 04:22 Ondansetron 4 Mg/2 Ml Vial IVP 4 mg Q8HR PRN Administration Nausea And Vomiting Pantoprazole Sodium 40 mg 11/15/20 19:45 11/18/20 08:57 Pantoprazole 40 Mg/10 Ml Vial IV 40 mg DAILY ISABELLA Administration Spironolactone 12.5 mg 11/17/20 09:00 11/18/20 08:56 Spironolactone 25 Mg Tab PO 12.5 mg DAILY ISABELLA Administration Objective - Vital Signs Vital signs: Vital Signs Temp 98.3 F 11/18/20 12:00 Pulse 86 11/18/20 14:00 Resp 10 L 11/18/20 14:00 BP 104/67 11/18/20 14:00 Pulse Ox 96 11/18/20 14:00 Intake & Output 11/17/20 11/18/20 11/18/20 18:59 06:59 18:59 Intake Total 1353.247 396.509 407.583 Output Total 5700 1620 1815 Balance -4346.753 -1223.491 -1407.417 Weight 66.2 kg Intake: IV 220 260 140 Sodium Chloride 0.9% 1, 220 260 140 000 ml @ 20 mls/hr IV . Q24H ISABELLA Rx#:[id number] Intake, IV Titration 103.247 136.509 37.583 Amount Heparin Sod,Pork in 0.45% 103.247 136.509 37.583 NaCl 25,000 unit In 0.45 % NaCl 1 250ml.bag @ 18 UNITS/KG/HR 13.064 mls/hr IV .Q19H9M ISABELLA Rx#: [id number] Oral 1030 230 Output: Drainage 1200 1200 Left Chest 1200 Right Chest 1200 Urine 4500 1620 615 Other: Voiding Method Indwelling Catheter Indwelling Catheter Indwelling Catheter - Exam -GENERAL: The patient is alert and oriented he feels generally weak and letharg ic. No respiratory distress HEENT: Pupils are round and equally reacting to light. EOMI. No scleral icterus. No conjunctival pallor. Normocephalic, atraumatic. No pharyngeal erythema. No thyromegaly. CARDIOVASCULAR: S1 and S2 present. No murmurs, rubs, or gallops. -PULMONARY: Chest is clear to auscultation, no wheezing . Bilateral basal crackles. ABDOMEN: Soft, nontender, nondistended, normoactive bowel sounds. No palpable organomegaly. MUSCULOSKELETAL: No joint swelling or deformity. -EXTREMITIES: No cyanosis, clubbing, . Bilateral patellar leg edema NEUROLOGICAL: Gross neurological examination did not reveal any focal deficits. SKIN: No rashes. no petechiae. - Labs CBC & Chem 7: 11/18/20 04:08 11/18/20 21:07 Labs: Abnormal Lab Results - Last 24 Hours (Table) 11/17/20 11/17/20 11/17/20 Range/Units 10:03 23:30 23:30 WBC 11.6 H (3.8-10.6) k/uL RBC (4.30-5.90) m/uL Neutrophils # 9.6 H (1.3-7.7) k/uL Lymphocytes # 0.6 L (1.0-4.8) k/uL Monocytes # 1.2 H (0-1.0) k/uL APTT (22.0-30.0) sec Sodium 126 L (137-145) mmol/L Potassium 3.1 L (3.5-5.1) mmol/L Chloride 87 L (98-107) mmol/L Carbon Dioxide (22-30) mmol/L Creatinine 0.55 L (0.66-1.25) mg/dL Glucose 129 H (74-99) mg/dL Calcium 7.6 L (8.4-10.2) mg/dL Magnesium 1.2 L (1.6-2.3) mg/dL Total Bilirubin 1.8 H (0.2-1.3) mg/dL AST 886 H (17-59) U/L ALT 435 H (4-49) U/L Total Protein 5.1 L (6.3-8.2) g/dL Albumin 2.6 L (3.5-5.0) g/dL Procalcitonin 1.12 H (0.02-0.09) ng/mL 11/17/20 11/18/20 11/18/20 Range/Units 23:30 04:08 04:08 WBC 12.1 H (3.8-10.6) k/uL RBC 4.16 L (4.30-5.90) m/uL Neutrophils # (1.3-7.7) k/uL Lymphocytes # (1.0-4.8) k/uL Monocytes # (0-1.0) k/uL APTT 41.0 H (22.0-30.0) sec Sodium 127 L (137-145) mmol/L Potassium 2.9 L (3.5-5.1) mmol/L Chloride 89 L (98-107) mmol/L Carbon Dioxide 34 H (22-30) mmol/L Creatinine 0.44 L (0.66-1.25) mg/dL Glucose 102 H (74-99) mg/dL Calcium 7.3 L (8.4-10.2) mg/dL Magnesium 1.5 L (1.6-2.3) mg/dL Total Bilirubin (0.2-1.3) mg/dL AST (17-59) U/L ALT (4-49) U/L Total Protein (6.3-8.2) g/dL Albumin (3.5-5.0) g/dL Procalcitonin (0.02-0.09) ng/mL 11/18/20 11/18/20 Range/Units 04:08 12:22 WBC (3.8-10.6) k/uL RBC (4.30-5.90) m/uL Neutrophils # (1.3-7.7) k/uL Lymphocytes # (1.0-4.8) k/uL Monocytes # (0-1.0) k/uL APTT 59.2 H 49.1 H (22.0-30.0) sec Sodium (137-145) mmol/L Potassium (3.5-5.1) mmol/L Chloride (98-107) mmol/L Carbon Dioxide (22-30) mmol/L Creatinine (0.66-1.25) mg/dL Glucose (74-99) mg/dL Calcium (8.4-10.2) mg/dL Magnesium (1.6-2.3) mg/dL Total Bilirubin (0.2-1.3) mg/dL AST (17-59) U/L ALT (4-49) U/L Total Protein (6.3-8.2) g/dL Albumin (3.5-5.0) g/dL Procalcitonin (0.02-0.09) ng/mL Microbiology - Last 24 Hours (Table) 11/17/20 10:03 Blood Culture - Preliminary Blood No Growth after 24 hours 11/17/20 10:00 Urine Culture - Final Urine,Catheterized 11/17/20 19:57 Gram Stain - Preliminary Sputum Sputum Culture - Preliminary Assessment and Plan Assessment: Severe systolic congestive heart failure with ejection fraction less than 20% A. fib and RVR status post SUSIE and cardioversion on 11/16 Bilateral pleural effusion status post thoracocentesis, right on 11/17 and left on 11/18 Mitral regurgitation Bilateral infiltrates suspicious for pneumonia Generalized weakness secondary to above Acute hypoxic respiratory failure secondary to above Mild hypervolemic hyponatremia Plan: This is a pleasant 59 years old male who presents with CHF, A. fib, bilateral pleural effusion. Patient is undergoing thoracocentesis. He is on Augmentin, IV Lasix and heparin drip. Also he is on amiodarone, digoxin, HARJEET inhibitor and Aldactone. Cardiology and pulmonary/critical care team on the case Labs and medication were reviewed.. Continue same treatment. Continue with symptomatic treatment. Resume home medication. Monitor lytes and vitals. DVT and GI prophylaxis. Further recommendationsas per clinical course of the patient DVT prophylaxis: heparin GI Prophylaxis: Ppi Prognosis is guarded
[2020-11-19] MEDS: MAGNESIUM SULFATE-D5W PMX 1 GM in DEXTROSE/WATER 1 100ML.BAG IVPB SCH ×2 (01:25→02:43)
[2020-11-19] MEDS: POTASSIUM CHLORIDE 10 MEQ in WATER FOR INJECTION 1 100ML.BAG IVPB SCH ×2 (04:00→05:00)
[2020-11-19 04:06] LABS: Total Protein, Body Fluid 1190 mg/dL
[2020-11-19 04:23] LABS: Glucose, BF Source Pleural Fluid; Glucose, Body Fluid 128 mg/dL; LDH, Body Fluid Source Pleural Fluid
[2020-11-19 05:12] LABS: HCT 42.5 % (39.0-53.0); HGB 13.7 gm/dL (13.0-17.5); MCHC 32.1 g/dL (31.0-37.0); MCV 99.6 fL (80.0-100.0); Mean Platelet Volume 7.8; Platelet Count 159 k/uL (150-450); RBC 4.27 m/uL (4.30-5.90); WBC 9.9 k/uL (3.8-10.6)
[2020-11-19 05:31] LABS: African American GFR (CKD) >90 (>60 ml/min/1.73 sqM); Anion Gap 0 mmol/L; Blood Urea Nitrogen 9 mg/dL (9-20); Calcium 7.6 mg/dL (8.4-10.2); Carbon Dioxide 34 mmol/L (22-30); Chloride 93 mmol/L (98-107); Glucose 102 mg/dL (74-99); Magnesium 2.2 mg/dL (1.6-2.3); Non-African American GFR(CKD) >90 (>60 ml/min/1.73 sqM); Potassium 4.1 mmol/L (3.5-5.1); Sodium 127 mmol/L (137-145)
[2020-11-19] MEDS: HEPARIN SOD,PORK IN 0.45% NACL 25,000 UNIT in 0.45% NACL 1 250ML.BAG IV SCH ×2 (07:06→09:18)
[2020-11-19] MEDS: IPRATROPIUM-ALBUTEROL 3 ML NEB INHALATION SCH ×3 (08:22→21:14)
[2020-11-19] MEDS: AMIODARONE 200 MG TAB PO SCH ×3 (09:18→20:09)
[2020-11-19] MEDS: SPIRONOLACTONE 25 MG TAB PO SCH (09:18)
[2020-11-19] MEDS: PANTOPRAZOLE 40 MG/10 ML VIAL IV SCH (09:19)
[2020-11-19] MEDS: AMOXIC-POT CLAV 875-125MG 1 EACH TAB PO SCH ×2 (09:22→20:09)
--- NOTE | 2020-11-19 10:06 | XR ---
EXAMINATION TYPE: XR chest 1V portable DATE OF EXAM: 11/19/2020 COMPARISON: 11/18/2020 HISTORY: Postthoracentesis. TECHNIQUE: Single frontal view of the chest is obtained. FINDINGS: There are partially consolidative opacities bilaterally which have worsened in the interva l since the prior study. There is a probable small right pleural effusion. The left pleural effusion is diminished in size with a tiny likely persists. There is no pneumothorax. The heart is mild prominent pulmonary vasculature is not congested. The oss eous structures are intact IMPRESSION: Mild interval worsening in the pneumonic infiltrates. Persistent small bilateral pleural effusions. No pneumothorax following thoracentesis.
--- NOTE | 2020-11-19 11:26 | P.PN ---
Subjective Progress Note Date: 11/19/20 Principal diagnosis: New onset cardiomyopathy, A. fib with RVR, acute systolic CHF exacerbation 59-year-old male, that we saw in the emergency department yesterday. The patient apparently does not see a doctor on a regular basis. He denies any major medical problems. He came into the emergency room on November 15, complaining of weakness, fatigue, shortness of breath, and lower extremity edema. The patient does smoke a pack of cigarettes a day, and states that he drinks 2 beers a day. In the emergency department, he was noted to have atrial fibrillation with RVR, treated with beta vince, Cardizem, and amiodarone. Currently, the patient remains on IV heparin, via weightbase protocol, amiodarone, 0.5 mg/m, and O2 at 6 L. Today, we did a right-sided thoracentesis, and removed 1200 mL of fluid from the right chest cavity. Tomorrow, we will do the left side. Labs today include a PTT of 62, sodium 1:30, potassium 3.6, chlorides 97, CO2 26, anion gap 7, BUN 18, and creatinine 0.74. Pro-calcitonin level was 0.98. Coronavirus testing was negative. Repeat chest x-ray shows improved aeration to the right lung, with no evidence of pneumothorax. On 11/18/2020 patient seen in follow-up in the intensive care unit, last night he had a run of V. Fib, and required CPR and synchronized cardioversion which was successful, with return of spontaneous circulation. Rhythm strips reveal V. fib which resembles torsade V. fib. He was given IV amiodarone, currently on oral amiodarone, patient has been extensively diuresed, had been on 40 mg of Lasix 3 times daily, and he had produced 7.3 L in urine output over the last 24 hours, and he is in -5.5 L over the last 24 hours, he had low potassium, low calcium, and low magnesium. His potassium is 2.9 and today's labs, magnesium is 1.5 and this was previously at 1.2 patient was given 2 g of magnesium sulfate, his calcium level is 7.3. His sodium level is persistently low at 127, his chloride is 89, his CO2 is 34. His lower extremity edema has improved, he is seems to be breathing comfortably, he is on 4 L of oxygen her pulse oximetry 97%, he status post right-sided thoracentesis today with removal of 1.2 L of yellow fluid, and the pleural fluid analysis and cultures were ordered on the fluid however it was inadvertently discarded. Follow-up chest x-ray showed no right-sided pneumothorax with improved right-sided pleural effusion, and some new central mild right alveolar reexpansion pulmonary edema. Patient still has persistent small to moderate sized left pleural effusion and he underwent left-sided thoracentesis this morning and another 1.2 L of yellow fluid was removed and sent for analysis cultures and cytology. Patient tolerated procedure well, post procedure chest x-ray showed cardiomegaly with bilateral infiltrates and small effusions, and marked reduction in the amount of pleural fluid on the left, no evidence of pneumothorax. Patient has had no fever or chills, he is on oral Augmentin for possibility of infection. No cough, no hemoptysis, today's white blood cell count is 12.1, hemoglobin is 14.2. His urine culture was sent and pending at this time, his sputum culture showed many PMNs, many gram-positive cocci, a few gram-negative bacilli and rare gram- positive bacilli. On 11/19/2000 patient seen in follow-up in the intensive care unit, he is resting comfortably in bed, denies any worsening dyspnea, room air pulse ox is 87-89%, he was placed on 2 L supplemental oxygen, his breathing is about the same, occasional cough, at times he is able to bring up thick phlegm with dark tinged blood. No complaints of chest discomfort, he remains on heparin infusion and weight based protocol, he is on 0.9 normal seen at a 20 ML per hour, he is status post right and left thoracentesis. His chest x-ray shows mild interval worsening in the pneumonic infiltrates, and persistent small bilateral pleural effusions, no pneumothorax following thoracentesis. Pleural fluid analysis reveals transudative fluid, cytology pending, pleural fluid cultures pending, pleural fluid gram stain shows no growth at the 24-hour alden. Today's labs have been reviewed, his white blood cell count is coming down, at 9.9 today, hemoglobin is 13.7, sodium is 127, potassium is 4.1, chloride is improved at 93, CO2 remains elevated at 34, his last pro-calcitonin on 11/17/2020 was still elevated at 1.12. he is on Augmentin for empiric antibiotic coverage. His had no fever or chills. No nausea vomiting or diarrhea, lung sounds reveal coarse bibasilar crackles, no rhonchi, no wheezing. His Lasix remains on hold, and despite that patient is a negative fluid balance of over 1 L over last 24 hours. Mild lower extremity edema. Objective - Vital Signs Vital signs: Vital Signs Temp 98.2 F 11/19/20 04:00 Pulse 88 11/19/20 08:35 Resp 23 11/19/20 07:00 BP 110/74 11/19/20 07:00 Pulse Ox 89 L 11/19/20 07:00 Intake & Output 11/18/20 11/19/20 11/19/20 18:59 06:59 18:59 Intake Total 947.583 890 232.417 Output Total 2315 580 80 Balance -1367.417 310 152.417 Weight 69.3 kg Intake: IV 220 440 20 Magnesium Sulfate-D5w Pmx 200 1 gm In Dextrose/Water 1 100ml.bag @ 100 mls/hr IVPB Q1H ISABELLA Rx#: [id number] Sodium Chloride 0.9% 1, 220 240 20 000 ml @ 20 mls/hr IV . Q24H ISABELLA Rx#:[id number] Intake, IV Titration 37.583 200 212.417 Amount Heparin Sod,Pork in 0.45% 37.583 212.417 NaCl 25,000 unit In 0.45 % NaCl 1 250ml.bag @ 18 UNITS/KG/HR 13.064 mls/hr IV .Q19H9M ISABELLA Rx#: [id number] Potassium Chloride 10 meq 200 In Water For Injection 1 100ml.bag @ 100 mls/hr IVPB Q1H ISABELLA Rx#: [id number] Oral 690 250 Output: Drainage 1200 Left Chest 1200 Urine 1115 580 80 Other: Voiding Method Indwelling Catheter Indwelling Catheter Indwelling Catheter - Exam GENERAL EXAM: Alert, pleasant, 59-year-old white male, room air pulse ox is 87- 89%, patient was placed on 2 L of supplemental oxygen comfortable in no apparent distress. HEAD: Normocephalic/atraumatic. EYES: Normal reaction of pupils, equal size. Conjunctiva pink, sclera white. NOSE: Clear with pink turbinates. THROAT: No erythema or exudates. NECK: No masses, no JVD, no thyroid enlargement, no adenopathy. CHEST: No chest wall deformity. Symmetrical expansion. LUNGS: Equal air entry with diminished breath sounds with basilar crackles CVS: Regular rate and rhythm, normal S1 and S2, no gallops, no murmurs, no rubs ABDOMEN: Soft, nontender. No hepatosplenomegaly, normal bowel sounds, no guarding or rigidity. EXTREMITIES: No clubbing, mild lower extremity edema, no cyanosis, 2+ pulses and upper and lower extremities. MUSCULOSKELETAL: Muscle strength and tone normal. SPINE: No scoliosis or deformity SKIN: No rashes CENTRAL NERVOUS SYSTEM: Alert and oriented -3. No focal deficits, tone is no rmal in all 4 extremities. PSYCHIATRIC: Alert and oriented -3. Appropriate affect. Intact judgment and insight. - Labs CBC & Chem 7: 11/19/20 04:48 11/19/20 04:48 Labs: Abnormal Lab Results - Last 24 Hours (Table) 11/18/20 11/18/20 11/19/20 Range/Units 12:22 21:07 04:48 RBC (4.30-5.90) m/uL APTT 49.1 H 46.6 H (22.0-30.0) sec Sodium 127 L (137-145) mmol/L Chloride 93 L (98-107) mmol/L Carbon Dioxide 34 H (22-30) mmol/L Creatinine 0.43 L (0.66-1.25) mg/dL Glucose 102 H (74-99) mg/dL Calcium 7.6 L (8.4-10.2) mg/dL 11/19/20 11/19/20 Range/Units 04:48 04:48 RBC 4.27 L (4.30-5.90) m/uL APTT 45.0 H (22.0-30.0) sec Sodium (137-145) mmol/L Chloride (98-107) mmol/L Carbon Dioxide (22-30) mmol/L Creatinine (0.66-1.25) mg/dL Glucose (74-99) mg/dL Calcium (8.4-10.2) mg/dL Microbiology - Last 24 Hours (Table) 11/18/20 08:10 Gram Stain - Preliminary Pleural Fluid Body Fluid Culture - Preliminary 11/18/20 08:10 Acid Fast Bacilli Smear - Final Pleural Fluid Acid Fast Bacilli Culture - Preliminary 11/18/20 08:10 Fungal Culture - Preliminary Pleural Fluid 11/17/20 10:03 Blood Culture - Preliminary Blood No Growth after 24 hours 11/17/20 10:00 Urine Culture - Final Urine,Catheterized 11/17/20 19:57 Gram Stain - Preliminary Sputum Sputum Culture - Preliminary Assessment and Plan Plan: Assessment: #1. Severe cardiomyopathy, with ejection fraction of less than 20%, and patient presented with acute systolic CHF and bilateral pleural effusions, negative for COVID 19, RSV or Influenza #2. Acute systolic CHF #3. Atrial fibrillation with RVR, new onset, currently in sinus rhythm #4. Episode of V. fib, possibly torsade, pulseless, patient received CPR and synchronous cardioversion on 11/17/2020 with ROSC #5. Bilateral pleural effusions, status post right-sided thoracentesis with 1.2 L removed on 11/17/2020, and left-sided thoracentesis with 1.2 L removed on 11/18/2020 on the right, left-sided pleural fluid showed transudate #6. Multiple electrolyte abnormalities, including hyponatremia, hypokalemia, hypomagnesemia and hypocalcemia #7. Elevated d-dimer with no evidence of PE on the CTA chest #8. Anion gap metabolic acidosis, improved #9. History of chronic alcohol use #10. History of chronic tobacco use and nicotine addiction rule out COPD Plan: We will continue holding the Lasix, continue Aldactone Today's chest x-ray and labs reviewed Pleural fluid analysis showed transudative fluid, consistent with patient's history of CHF No recurrence of V. fib Cardiology is following, and is considering cardiac catheterization Anticoagulation per cardiology, continues on heparin infusion Continue oral antibiotics Continue to follow in the intensive care unit I performed a history & physical examination of the patient and discussed their management with my nurse practitioner, Luana Calle. I reviewed the nurse practitioner's note and agree with the documented findings and plan of care. Lung sounds are positive for diminished breath sounds with crackles. The findings and the impression was discussed with the patient. I attest to the documentation by the nurse practitioner. Time with Patient: Greater than 30
--- NOTE | 2020-11-19 15:48 | P.PN ---
Subjective Progress Note Date: 11/19/20 This is a 59-year-old gentleman who came to the emergency room yesterday with complaints of increasing pedal swelling and shortness of breath and evidence of atrial flutter with rapid ventricular response. Patient was treated with amiodarone and digoxin without control of his heart rate . Patient had a SUSIE cardioversion yesterday with conversion to sinus rhythm. Patient received IV diuretics. Patient has diuresed well since yesterday and feeling much better today. He also had a pleural tap today by pulmonology. He chest x-ray continues to show infiltrate and consolidation. His echocardiogram showed severe LV dysfunction size to cardiomyopathy. We'll continue with current management with amiodarone with oxygen, diuretics, HARJEET inhibitor and Aldactone. Follow his electrolytes closely. Appreciate input from pulmonology. Prognosis is guarded 11/18/2020: This patient was hemodynamically stable l overnight. However developed intermittent hypokalemia and also hypomagnesemia. Patient had an episode of polymorphic V. tach. Patient required brief CPR and shock with mandaen of the sinus rhythm. Patient is a currently hemodynamically stable. Neurologically stable. His edema has cleared. Patient had bilateral PLEURAL tap. Potassium and magnesium are being corrected. IV Lasix is being held. Aldactone be continued. Patient is feeling better. No complaints of any chest pain or shortness of breath. Because of polymorphic V. tach, I'm discontinuing Lanoxin. We'll continue therapy with amiodarone. His lungs appeared to be clear. Heart is regular. We'll continue his current medical therapy. Sputum cultures sent. The blood cultures being obtained. He patient remains stable, we'll consider cardiac catheterization to rule out ischemic heart disease, probably within next 48 hours or so. We'll increase activity as tolerated. 11/19/2020:. Patient remains stable in no further arrhythmias. Breathing much better. No complaints of shortness of breath. Complains of some chest pain seemed to be related to his chest compression. Lungs are clear. Heart is regular. In view of his cardiomyopathy and arrhythmias, patient is advised to have a cardiac catheterization. This will be planned for tomorrow or tomorrow. Patient is current on heparin. Further recommendations depend upon clinical course Objective - Vital Signs Vital signs: Vital Signs Temp 98.2 F 11/19/20 12:00 Pulse 98 11/19/20 13:00 Resp 16 11/19/20 13:00 BP 109/74 11/19/20 13:00 Pulse Ox 93 L 11/19/20 13:00 Intake & Output 11/18/20 11/19/20 11/19/20 18:59 06:59 18:59 Intake Total 947.583 890 552.417 Output Total 2315 580 755 Balance -1367.417 310 -202.583 Weight 69.3 kg Intake: IV 220 440 140 Magnesium Sulfate-D5w Pmx 200 1 gm In Dextrose/Water 1 100ml.bag @ 100 mls/hr IVPB Q1H [facility] Rx#: [id number] Sodium Chloride 0.9% 1, 220 240 140 000 ml @ 20 mls/hr IV . Q24H [facility] Rx#:[id number] Intake, IV Titration 37.583 200 212.417 Amount Heparin Sod,Pork in 0.45% 37.583 212.417 NaCl 25,000 unit In 0.45 % NaCl 1 250ml.bag @ 18 UNITS/KG/HR 13.064 mls/hr IV .Q19H9M [facility] Rx#: [id number] Potassium Chloride 10 meq 200 In Water For Injection 1 100ml.bag @ 100 mls/hr IVPB Q1H [facility] Rx#: [id number] Oral 690 250 200 Output: Drainage 1200 Left Chest 1200 Urine 1115 580 755 Other: Voiding Method Indwelling Catheter Indwelling Catheter Indwelling Catheter - Exam GENERAL EXAM: Patient is alert and oriented and doesn't appear to be in any acute distress HEENT: Normocephalic. Normal reaction of pupils, equal size, normal range of extraocular motion. No erythema or exudates in throat. NECK: No masses, no nuchal rigidity. CHEST: No chest wall deformity. LUNGS: Diminished breath sounds HEART: [S1 and S2 normal with no audible mumurs or gallops. Regular rhythm, femorals equal on both sides..] ABDOMEN: No hepatosplenomegaly, normal bowel sounds, no guarding or rigidity. SKIN: No rashes CENTRAL NERVOUS SYSTEM: No focal deficits. EXTREMITIES: Resolving edema - Labs CBC & Chem 7: 11/19/20 04:48 11/19/20 04:48 Labs: Abnormal Lab Results - Last 24 Hours (Table) 11/18/20 11/19/20 11/19/20 Range/Units 21:07 04:48 04:48 RBC (4.30-5.90) m/uL APTT 46.6 H 45.0 H (22.0-30.0) sec Sodium 127 L (137-145) mmol/L Chloride 93 L (98-107) mmol/L Carbon Dioxide 34 H (22-30) mmol/L Creatinine 0.43 L (0.66-1.25) mg/dL Glucose 102 H (74-99) mg/dL Calcium 7.6 L (8.4-10.2) mg/dL 11/19/20 Range/Units 04:48 RBC 4.27 L (4.30-5.90) m/uL APTT (22.0-30.0) sec Sodium (137-145) mmol/L Chloride (98-107) mmol/L Carbon Dioxide (22-30) mmol/L Creatinine (0.66-1.25) mg/dL Glucose (74-99) mg/dL Calcium (8.4-10.2) mg/dL Microbiology - Last 24 Hours (Table) 11/17/20 10:03 Blood Culture - Preliminary Blood No Growth after 48 hours 11/18/20 08:10 Gram Stain - Preliminary Pleural Fluid Body Fluid Culture - Preliminary 11/18/20 08:10 Acid Fast Bacilli Smear - Final Pleural Fluid Acid Fast Bacilli Culture - Preliminary 11/18/20 08:10 Fungal Culture - Preliminary Pleural Fluid 11/17/20 10:00 Urine Culture - Final Urine,Catheterized Assessment and Plan (1) Atrial flutter Current Visit: Yes Status: Acute Code(s): I48.92 - UNSPECIFIED ATRIAL FLUTTER SNOMED Code(s): 9584764 (2) Acute systolic CHF (congestive heart failure), NYHA class 3 Current Visit: Yes Status: Acute Code(s): I50.21 - ACUTE SYSTOLIC (CONGESTIVE) HEART FAILURE SNOMED Code(s): 677232375 (3) Cardiomyopathy Current Visit: Yes Status: Acute Code(s): I42.9 - CARDIOMYOPATHY, UNSPECIFIED SNOMED Code(s): 10264181 (4) COPD (chronic obstructive pulmonary disease) Current Visit: Yes Status: Acute Code(s): J44.9 - CHRONIC OBSTRUCTIVE PULMONARY DISEASE, UNSPECIFIED SNOMED Code(s): 06142666 (5) Pneumonia Current Visit: Yes Status: Acute Code(s): J18.9 - PNEUMONIA, UNSPECIFIED ORGANISM SNOMED Code(s): 622915932 (6) Polymorphic ventricular tachycardia Current Visit: Yes Status: Acute Code(s): I47.2 - VENTRICULAR TACHYCARDIA SNOMED Code(s): 868322071 Plan: Stable hemodynamically. No further cardiac arrhythmias. Cardiac catheterization within next 24 hours to 48 hours. Patient may also be considered for LifeVest before discharge
[2020-11-19] MEDS: SODIUM CHLORIDE 0.9% 1,000 ML IV SCH ×3 (17:55→20:09)
--- NOTE | 2020-11-19 21:20 | P.PN ---
Subjective This is a pleasant 59 years old male With past medical history of diabetes mellitus, hypertension, hyperlipidemia, GI bleed, hypothyroidism. Presents because of generalized weakness, worsening over 2 weeks.. Found to have A. fib and RVR and severe CHF with ejection fraction less than 20% and a d-dimer was elevated about 3.1, so CTA of the chest was obtained showing no PE but bilateral pleural effusion, patient underwent a thoracocentesis today with 1.0 L removed and Plavix for left thoracotomy cc tomorrow. Also there is an evidence of bilateral infiltrates and mitral regurgitation. Patient remains mildly hypoxic with oxygen saturation low 90s on 3 L oxygen via nasal cannula with evidence of venous congestion patient is placed on Lasix 40 mg 3 times a day. Also he is on heparin drip. Cardiology recommended amiodarone, lisinopril, digoxin. No varicose because blood pressure on the low normal site, currently well 86/54. Mild increase WBC at 13.9 while on steroids. Sodium is 1:30 Patient also is on Augmentin, Lasix IV, heparin drip, no steroids 11/18/2020 Patient lying in bed comfortable not in distress, no chest pain or dyspnea, no exertional dyspnea because he stayed in bed. No other specific or new complaints. He is saturating 91-94% on 4 L/m of oxygen. Potassium 2.9 and magnesium 1.5 been replaced This Lasix. Because his edema resolved, electrolytes abnormalities are correct per Protocol. Cardiology are pending for cardiac cath 11/19/2020 Patient with no dyspnea or chest pain but is sitting in bed most of the time. He is status post bilateral thoracentesis on 11/17/29. Bilateral leg edema. Cardiology team are planning for cardiac cath in 24-48 hours , in the meantime patient kept on heparin drip as well as amiodarone and digoxin for his cardiac arrhythmia/A. fib. Also he is on lisinopril and Aldactone for his heart failure. His bilateral infiltrates or suspicious for pneumonia that's why he was placed on Augmentin. Deb normal today. Sodium coming down to 1:30 down to 127. Patient is on room air. Blood pressure is low normal but tolerated by the patient. Echocardiogram showing severe global hypokinesia with ejection fraction less than 20% and lead sql developer recommended lifevest prior to discharge . Objective - Vital Signs Vital signs: Vital Signs Temp 98.4 F 11/19/20 20:00 Pulse 95 11/19/20 20:00 Resp 13 11/19/20 20:00 BP 96/68 11/19/20 20:00 Pulse Ox 93 L 11/19/20 20:00 Intake & Output 11/19/20 11/19/20 11/20/20 06:59 18:59 06:59 Intake Total 890 652.417 Output Total 580 1130 Balance 310 -477.583 Weight 69.3 kg Intake: IV 440 240 Magnesium Sulfate-D5w Pmx 200 1 gm In Dextrose/Water 1 100ml.bag @ 100 mls/hr IVPB Q1H [facility] Rx#: [id number] Sodium Chloride 0.9% 1, 240 240 000 ml @ 20 mls/hr IV . Q24H [facility] Rx#:[id number] Intake, IV Titration 200 212.417 Amount Heparin Sod,Pork in 0.45% 212.417 NaCl 25,000 unit In 0.45 % NaCl 1 250ml.bag @ 18 UNITS/KG/HR 13.064 mls/hr IV .Q19H9M [facility] Rx#: [id number] Potassium Chloride 10 meq 200 In Water For Injection 1 100ml.bag @ 100 mls/hr IVPB Q1H [facility] Rx#: [id number] Oral 250 200 Output: Urine 580 1130 Other: Voiding Method Indwelling Catheter Indwelling Catheter Indwelling Catheter - Exam -GENERAL: The patient is alert and oriented he feels generally weak and lethargic. No respiratory distress HEENT: Pupils are round and equally reacting to light. EOMI. No scleral icterus. No conjunctival pallor. Normocephalic, atraumatic. No pharyngeal erythema. No thyromegaly. CARDIOVASCULAR: S1 and S2 present. No murmurs, rubs, or gallops. -PULMONARY: Chest is clear to auscultation, no wheezing . Bilateral basal crackles. ABDOMEN: Soft, nontender, nondistended, normoactive bowel sounds. No palpable organomegaly. MUSCULOSKELETAL: No joint swelling or deformity. -EXTREMITIES: No cyanosis, clubbing, . Bilateral patellar leg edema NEUROLOGICAL: Gross neurological examination did not reveal any focal deficits. SKIN: No rashes. no petechiae. - Labs CBC & Chem 7: 11/19/20 04:48 11/19/20 04:48 Labs: Abnormal Lab Results - Last 24 Hours (Table) 11/18/20 11/19/20 11/19/20 Range/Units 21:07 04:48 04:48 RBC (4.30-5.90) m/uL APTT 46.6 H 45.0 H (22.0-30.0) sec Sodium 127 L (137-145) mmol/L Chloride 93 L (98-107) mmol/L Carbon Dioxide 34 H (22-30) mmol/L Creatinine 0.43 L (0.66-1.25) mg/dL Glucose 102 H (74-99) mg/dL Calcium 7.6 L (8.4-10.2) mg/dL 11/19/20 Range/Units 04:48 RBC 4.27 L (4.30-5.90) m/uL APTT (22.0-30.0) sec Sodium (137-145) mmol/L Chloride (98-107) mmol/L Carbon Dioxide (22-30) mmol/L Creatinine (0.66-1.25) mg/dL Glucose (74-99) mg/dL Calcium (8.4-10.2) mg/dL Microbiology - Last 24 Hours (Table) 11/17/20 10:03 Blood Culture - Preliminary Blood No Growth after 48 hours 11/18/20 08:10 Gram Stain - Preliminary Pleural Fluid Body Fluid Culture - Preliminary 11/18/20 08:10 Acid Fast Bacilli Smear - Final Pleural Fluid Acid Fast Bacilli Culture - Preliminary Assessment and Plan Assessment: Severe systolic congestive heart failure with ejection fraction less than 20% A. fib and RVR status post SUSIE and cardioversion on 11/16 Bilateral pleural effusion status post thoracocentesis, right on 11/17 and left on 11/18 Mitral regurgitation Bilateral infiltrates suspicious for pneumonia Generalized weakness secondary to above Acute hypoxic respiratory failure secondary to above Mild hypervolemic hyponatremia Plan: This is a pleasant 59 years old male who presents with CHF, A. fib, bilateral pleural effusion. Patient is undergoing thoracocentesis. He is on Augmentin, IV Lasix and heparin drip. Also he is on amiodarone, digoxin, HARJEET inhibitor and Aldactone. Cardiology and pulmonary/critical care team on the case Labs and medication were reviewed.. Continue same treatment. Continue with symptomatic treatment. Resume home medication. Monitor lytes and vitals. DVT and GI prophylaxis. Further recommendationsas per clinical course of the patient DVT prophylaxis: heparin GI Prophylaxis: Ppi Prognosis is guarded
[2020-11-20 04:06] LABS: Basophils % (A) 0 %; Eosinophils # (A) 0.2 k/uL (0-0.7); Eosinophils % (A) 2 %; HCT 45.5 % (39.0-53.0); HGB 14.7 gm/dL (13.0-17.5); Lymphocytes # (A) 0.6 k/uL (1.0-4.8); Lymphocytes % (A) 6 %; MCH 32.3 pg (25.0-35.0); MCHC 32.4 g/dL (31.0-37.0); MCV 99.6 fL (80.0-100.0); Mean Platelet Volume 9.1; Monocytes # (A) 0.7 k/uL (0-1.0); Monocytes % (A) 7 %; Neutrophils # (A) 7.6 k/uL (1.3-7.7); Neutrophils % (A) 82 %; Platelet Count 160 k/uL (150-450); RBC 4.57 m/uL (4.30-5.90); RDW 13.3 % (11.5-15.5); WBC 9.3 k/uL (3.8-10.6)
[2020-11-20 04:27] LABS: ALT 533 U/L (4-49); AST 607 U/L (17-59); African American GFR (CKD) >90 (>60 ml/min/1.73 sqM); Albumin 2.4 g/dL (3.5-5.0); Alkaline Phosphatase 109 U/L (38-126); Anion Gap 5 mmol/L; Blood Urea Nitrogen 8 mg/dL (9-20); Calcium 7.8 mg/dL (8.4-10.2); Carbon Dioxide 28 mmol/L (22-30); Chloride 94 mmol/L (98-107); Glucose 92 mg/dL (74-99); Magnesium 1.3 mg/dL (1.6-2.3); Non-African American GFR(CKD) >90 (>60 ml/min/1.73 sqM); Sodium 127 mmol/L (137-145); Total Protein 4.9 g/dL (6.3-8.2)
[2020-11-20 04:28] LABS: Potassium 4.3 mmol/L (3.5-5.1)
[2020-11-20] MEDS ORDERED: MAGNESIUM SULFATE-D5W PMX 1 GM in DEXTROSE/WATER 1 100ML.BAG IVPB SCH (04:45)
[2020-11-20] MEDS: MAGNESIUM SULFATE-D5W PMX 1 GM in DEXTROSE/WATER 1 100ML.BAG IVPB SCH ×5 (04:47→17:47)
[2020-11-20] MEDS: HEPARIN SODIUM 1,000 UN/ML (10ML VL) IV PRN (05:12)
--- NOTE | 2020-11-20 07:06 | XR ---
EXAMINATION TYPE: XR chest 1V portable DATE OF EXAM: 11/20/2020 COMPARISON: 11/20/2019 HISTORY: Shortness of breath TECHNIQUE: Single frontal view of the chest is obtained. FINDINGS: Bilateral patchy infiltrate and pleural effusion stable. Heart size stable. No pneumothora x. IMPRESSION: Bilateral patchy infiltrate and pleural effusion stable.
[2020-11-20] MEDS: IPRATROPIUM-ALBUTEROL 3 ML NEB INHALATION SCH ×3 (07:25→19:56)
[2020-11-20] MEDS: SPIRONOLACTONE 25 MG TAB PO SCH (08:12)
[2020-11-20] MEDS: AMIODARONE 200 MG TAB PO SCH ×3 (08:12→21:50)
[2020-11-20] MEDS: PANTOPRAZOLE 40 MG/10 ML VIAL IV SCH (08:12)
[2020-11-20] MEDS: AMOXIC-POT CLAV 875-125MG 1 EACH TAB PO SCH ×2 (08:12→21:50)
[2020-11-20] MEDS ORDERED: FUROSEMIDE 20 MG TAB PO SCH (09:00)
[2020-11-20] MEDS: HEPARIN SOD,PORK IN 0.45% NACL 25,000 UNIT in 0.45% NACL 1 250ML.BAG IV SCH (09:28)
[2020-11-20] MEDS ORDERED: VERAPAMIL 2.5 MG/ML 2 ML AMP ONE (10:14)
[2020-11-20] MEDS ORDERED: LIDOCAINE 1% INJ 10MG/ML (20 ML MDV) ONE (10:14)
[2020-11-20] MEDS ORDERED: fentaNYL (PF) 50 MCG/ML 2 ML AMP ONE (10:15)
[2020-11-20] MEDS ORDERED: HEPARIN SODIUM 1,000 UN/ML (10ML VL) ONE (10:15)
[2020-11-20] MEDS ORDERED: ASPIRIN 325 MG TAB ONE (10:17)
[2020-11-20] MEDS ORDERED: ASPIRIN 325 MG TAB PO ONE (10:25)
[2020-11-20] MEDS ORDERED: IV FLUID CONTINUATION 1,000 ML IV ONE (10:29)
[2020-11-20] MEDS ORDERED: fentaNYL (PF) 50 MCG/ML 2 ML AMP IV ONE (10:34)
[2020-11-20] MEDS ORDERED: MIDAZOLAM 2 MG/2 ML VIAL IV ONE (10:34)
--- NOTE | 2020-11-20 10:34 | P.PN ---
Subjective Progress Note Date: 11/20/20 Principal diagnosis: New onset cardiomyopathy, A. fib with RVR, acute systolic CHF exacerbation 59-year-old male, that we saw in the emergency department yesterday. The patient apparently does not see a doctor on a regular basis. He denies any major medical problems. He came into the emergency room on November 15, complaining of weakness, fatigue, shortness of breath, and lower extremity edema. The patient does smoke a pack of cigarettes a day, and states that he drinks 2 beers a day. In the emergency department, he was noted to have atrial fibrillation with RVR, treated with beta vince, Cardizem, and amiodarone. Currently, the patient remains on IV heparin, via weightbase protocol, amiodarone, 0.5 mg/m, and O2 at 6 L. Today, we did a right-sided thoracentesis, and removed 1200 mL of fluid from the right chest cavity. Tomorrow, we will do the left side. Labs today include a PTT of 62, sodium 1:30, potassium 3.6, chlorides 97, CO2 26, anion gap 7, BUN 18, and creatinine 0.74. Pro-calcitonin level was 0.98. Coronavirus testing was negative. Repeat chest x-ray shows improved aeration to the right lung, with no evidence of pneumothorax. On 11/18/2020 patient seen in follow-up in the intensive care unit, last night he had a run of V. Fib, and required CPR and synchronized cardioversion which was successful, with return of spontaneous circulation. Rhythm strips reveal V. fib which resembles torsade V. fib. He was given IV amiodarone, currently on oral amiodarone, patient has been extensively diuresed, had been on 40 mg of Lasix 3 times daily, and he had produced 7.3 L in urine output over the last 24 hours, and he is in -5.5 L over the last 24 hours, he had low potassium, low calcium, and low magnesium. His potassium is 2.9 and today's labs, magnesium is 1.5 and this was previously at 1.2 patient was given 2 g of magnesium sulfate, his calcium level is 7.3. His sodium level is persistently low at 127, his chloride is 89, his CO2 is 34. His lower extremity edema has improved, he is seems to be breathing comfortably, he is on 4 L of oxygen her pulse oximetry 97%, he status post right-sided thoracentesis today with removal of 1.2 L of yellow fluid, and the pleural fluid analysis and cultures were ordered on the fluid however it was inadvertently discarded. Follow-up chest x-ray showed no right-sided pneumothorax with improved right-sided pleural effusion, and some new central mild right alveolar reexpansion pulmonary edema. Patient still has persistent small to moderate sized left pleural effusion and he underwent left-sided thoracentesis this morning and another 1.2 L of yellow fluid was removed and sent for analysis cultures and cytology. Patient tolerated procedure well, post procedure chest x-ray showed cardiomegaly with bilateral infiltrates and small effusions, and marked reduction in the amount of pleural fluid on the left, no evidence of pneumothorax. Patient has had no fever or chills, he is on oral Augmentin for possibility of infection. No cough, no hemoptysis, today's white blood cell count is 12.1, hemoglobin is 14.2. His urine culture was sent and pending at this time, his sputum culture showed many PMNs, many gram-positive cocci, a few gram-negative bacilli and rare gram- positive bacilli. On 11/19/2000 patient seen in follow-up in the intensive care unit, he is resting comfortably in bed, denies any worsening dyspnea, room air pulse ox is 87-89%, he was placed on 2 L supplemental oxygen, his breathing is about the same, occasional cough, at times he is able to bring up thick phlegm with dark tinged blood. No complaints of chest discomfort, he remains on heparin infusion and weight based protocol, he is on 0.9 normal seen at a 20 ML per hour, he is status post right and left thoracentesis. His chest x-ray shows mild interval worsening in the pneumonic infiltrates, and persistent small bilateral pleural effusions, no pneumothorax following thoracentesis. Pleural fluid analysis reveals transudative fluid, cytology pending, pleural fluid cultures pending, pleural fluid gram stain shows no growth at the 24-hour alden. Today's labs have been reviewed, his white blood cell count is coming down, at 9.9 today, hemoglobin is 13.7, sodium is 127, potassium is 4.1, chloride is improved at 93, CO2 remains elevated at 34, his last pro-calcitonin on 11/17/2020 was still elevated at 1.12. he is on Augmentin for empiric antibiotic coverage. His had no fever or chills. No nausea vomiting or diarrhea, lung sounds reveal coarse bibasilar crackles, no rhonchi, no wheezing. His Lasix remains on hold, and despite that patient is a negative fluid balance of over 1 L over last 24 hours. Mild lower extremity edema. On 11/20/2020 patient seen in follow-up in the intensive care unit, he is currently resting comfortably in bed, he is a 2 L of oxygen his pulse ox is 94%, no complaints of chest pain, no worsening dyspnea, lung sounds revealed coarse bilateral crackles, he has remained off Lasix for the last 48 hours, today's chest x-ray has been reviewed showing bilateral patchy infiltrates and pleural effusion on the left, fairly stable in appearance. 1+ lower extremity edema, patient is maintaining negative fluid balance he is in -1045 ML over last 24 hours. Remains on oral antibiotics in the form of Augmentin, he states his phlegm production has decreased, still has some blood-tinged phlegm at times. No fever, today's labs have been reviewed showing white blood cell count 9.3, hemoglobin of 14.7, sodium is stable at 127, potassium is 4.3, chloride is 94, CO2 is 28, B1 is a creatinine 0.46, his total bilirubin is up from the previous value and is currently at 2, AST is 607, improved, and ALT is 533, worsening from previous value, alkaline phosphatase is 109. Pleural fluid analysis revealed transudative fluid, no growth on the pleural fluid cultures. He is currently in sinus mechanism with a controlled rate, no recurrence of V. fib. His magnesium is still low at 1.3, and he was given 3 g of magnesium sulfate Objective - Vital Signs Vital signs: Vital Signs Temp 97.5 F L 11/20/20 08:00 Pulse 86 11/20/20 10:00 Resp 16 11/20/20 10:00 BP 106/79 11/20/20 10:00 Pulse Ox 87 L 11/20/20 10:00 Intake & Output 11/19/20 11/20/20 11/20/20 18:59 06:59 18:59 Intake Total 652.417 447.442 386.81 Output Total 1130 1015 675 Balance -477.583 -567.558 -288.19 Weight 69.9 kg Intake: IV 240 260 40 Sodium Chloride 0.9% 1, 240 260 40 000 ml @ 20 mls/hr IV . Q24H [facility] Rx#:[id number] Intake, IV Titration 212.417 187.442 346.81 Amount Heparin Sod,Pork in 0.45% 212.417 187.442 46.81 NaCl 25,000 unit In 0.45 % NaCl 1 250ml.bag @ 18 UNITS/KG/HR 13.064 mls/hr IV .Q19H9M [facility] Rx#: [id number] Magnesium Sulfate-D5w Pmx 300 1 gm In Dextrose/Water 1 100ml.bag @ 100 mls/hr IVPB Q1H [facility] Rx#: [id number] Oral 200 Output: Urine 1130 1015 675 Other: Voiding Method Indwelling Catheter Indwelling Catheter Indwelling Catheter - Exam GENERAL EXAM: Alert, pleasant, 59-year-old white male, room air pulse ox is 87- 89%, patient was placed on 2 L of supplemental oxygen comfortable in no apparent distress. HEAD: Normocephalic/atraumatic. EYES: Normal reaction of pupils, equal size. Conjunctiva pink, sclera white. NOSE: Clear with pink turbinates. THROAT: No erythema or exudates. NECK: No masses, no JVD, no thyroid enlargement, no adenopathy. CHEST: No chest wall deformity. Symmetrical expansion. LUNGS: Equal air entry with diminished breath sounds with basilar crackles CVS: Regular rate and rhythm, normal S1 and S2, no gallops, no murmurs, no rubs ABDOMEN: Soft, nontender. No hepatosplenomegaly, normal bowel sounds, no guarding or rigidity. EXTREMITIES: No clubbing, mild lower extremity edema, no cyanosis, 2+ pulses and upper and lower extremities. MUSCULOSKELETAL: Muscle strength and tone normal. SPINE: No scoliosis or deformity SKIN: No rashes CENTRAL NERVOUS SYSTEM: Alert and oriented -3. No focal deficits, tone is normal in all 4 extremities. PSYCHIATRIC: Alert and oriented -3. Appropriate affect. Intact judgment and insight. - Labs CBC & Chem 7: 11/20/20 03:10 11/20/20 03:10 Labs: Abnormal Lab Results - Last 24 Hours (Table) 11/20/20 11/20/20 11/20/20 Range/Units 03:10 03:10 03:10 Lymphocytes # 0.6 L (1.0-4.8) k/uL APTT 35.7 H (22.0-30.0) sec Sodium 127 L (137-145) mmol/L Chloride 94 L (98-107) mmol/L BUN 8 L (9-20) mg/dL Creatinine 0.46 L (0.66-1.25) mg/dL Calcium 7.8 L (8.4-10.2) mg/dL Magnesium 1.3 L (1.6-2.3) mg/dL Total Bilirubin 2.0 H (0.2-1.3) mg/dL AST 607 H (17-59) U/L ALT 533 H (4-49) U/L Total Protein 4.9 L (6.3-8.2) g/dL Albumin 2.4 L (3.5-5.0) g/dL Microbiology - Last 24 Hours (Table) 11/17/20 19:57 Gram Stain - Final Sputum Sputum Culture - Final 11/17/20 10:03 Blood Culture - Preliminary Blood No Growth after 48 hours 11/18/20 08:10 Gram Stain - Preliminary Pleural Fluid Body Fluid Culture - Preliminary Assessment and Plan Plan: Assessment: #1. Severe cardiomyopathy, with ejection fraction of less than 20%, and patient presented with acute systolic CHF and bilateral pleural effusions, negative for COVID 19, RSV or Influenza #2. Acute systolic CHF #3. Atrial fibrillation with RVR, new onset, currently in sinus rhythm #4. Episode of V. fib, possibly torsade, pulseless, patient received CPR and synchronous cardioversion on 11/17/2020 with ROSC #5. Bilateral pleural effusions, status post right-sided thoracentesis with 1.2 L removed on 11/17/2020, and left-sided thoracentesis with 1.2 L removed on 11/18/2020 on the right, left-sided pleural fluid showed transudate #6. Multiple electrolyte abnormalities, including hyponatremia, hypokalemia, hy pomagnesemia and hypocalcemia #7. Elevated d-dimer with no evidence of PE on the CTA chest #8. Anion gap metabolic acidosis, improved #9. History of chronic alcohol use #10. History of chronic tobacco use and nicotine addiction rule out COPD Plan: We will add small dose of Lasix 20 mg daily, continue Aldactone Follow-up labs, electrolytes and renal profile tomorrow Today's chest x-ray and labs reviewed No recurrence of V. fib, remains in sinus mechanism Cardiology is following, and is considering cardiac catheterization possibly in the next 24 hours Anticoagulation per cardiology, continues on heparin infusion Continue oral antibiotics Continue to follow in the intensive care unit I performed a history & physical examination of the patient and discussed their management with my nurse practitioner, Luana Calle. I reviewed the nurse practitioner's note and agree with the documented findings and plan of care. Lung sounds are positive for diminished breath sounds with crackles. The findings and the impression was discussed with the patient. I attest to the documentation by the nurse practitioner. Time with Patient: Greater than 30
[2020-11-20] MEDS: LIDOCAINE 1% INJ 10MG/ML (20 ML MDV) SQ ONE ×2 (10:35→10:46)
[2020-11-20] MEDS ORDERED: VERAPAMIL SYRINGE (5 MG/10 ML) INTRAARTER ONE (10:40)
[2020-11-20] MEDS ORDERED: IOPAMIDOL-370 50ML BTL INJ ONE (11:14)
[2020-11-20] MEDS ORDERED: IOPAMIDOL-370 125ML BTL INJ ONE (11:14)
[2020-11-20] MEDS ORDERED: RX INFO: IV CONTRAST WAS GIVEN 1 EACH MISC MISCELLANE PRN (11:20)
[2020-11-20] MEDS: SODIUM CHLORIDE 0.9% 1,000 ML IV SCH ×5 (12:26→17:46)
[2020-11-20 15:40] LABS: Magnesium 1.7 mg/dL (1.6-2.3); Phosphorus 2.3 mg/dL (2.5-4.5); Potassium 3.9 mmol/L (3.5-5.1)
[2020-11-20] MEDS ORDERED: POTASSIUM CHLORIDE ER 20 MEQ TAB.ER PO SCH (17:00)
[2020-11-20] MEDS ORDERED: APIXABAN 5 MG TAB PO SCH (21:00)
--- NOTE | 2020-11-20 21:40 | P.PN ---
Subjective This is a pleasant 59 years old male With past medical history of diabetes mellitus, hypertension, hyperlipidemia, GI bleed, hypothyroidism. Presents because of generalized weakness, worsening over 2 weeks.. Found to have A. fib and RVR and severe CHF with ejection fraction less than 20% and a d-dimer was elevated about 3.1, so CTA of the chest was obtained showing no PE but bilateral pleural effusion, patient underwent a thoracocentesis today with 1.0 L removed and Plavix for left thoracotomy cc tomorrow. Also there is an evidence of bilateral infiltrates and mitral regurgitation. Patient remains mildly hypoxic with oxygen saturation low 90s on 3 L oxygen via nasal cannula with evidence of venous congestion patient is placed on Lasix 40 mg 3 times a day. Also he is on heparin drip. Cardiology recommended amiodarone, lisinopril, digoxin. No varicose because blood pressure on the low normal site, currently well 86/54. Mild increase WBC at 13.9 while on steroids. Sodium is 1:30 Patient also is on Augmentin, Lasix IV, heparin drip, no steroids 11/18/2020 Patient lying in bed comfortable not in distress, no chest pain or dyspnea, no exertional dyspnea because he stayed in bed. No other specific or new complaints. He is saturating 91-94% on 4 L/m of oxygen. Potassium 2.9 and magnesium 1.5 been replaced This Lasix. Because his edema resolved, electrolytes abnormalities are correct per Protocol. Cardiology are pending for cardiac cath 11/19/2020 Patient with no dyspnea or chest pain but is sitting in bed most of the time. He is status post bilateral thoracentesis on 11/17/29. Bilateral leg edema. Cardiology team are planning for cardiac cath in 24-48 hours , in the meantime patient kept on heparin drip as well as amiodarone and digoxin for his cardiac arrhythmia/A. fib. Also he is on lisinopril and Aldactone for his heart failure. His bilateral infiltrates or suspicious for pneumonia that's why he was placed on Augmentin. Deb normal today. Sodium coming down to 1:30 down to 127. Patient is on room air. Blood pressure is low normal but tolerated by the patient. Echocardiogram showing severe global hypokinesia with ejection fraction less than 20% and breakfast server recommended lifevest prior to discharge . 11/20/20 Patient remains in the ICU, asymptomatic but he is sitting in bed most of the time. He has severe ejection fraction of less than 20 and severe global hypokinesia, and cardiology started him on normal saline at 75 L/h and a preparation for cardiac cath tomorrow, pulmonary and returned and it small dose of Lasix 20 mg daily. His heparin drip was switched to Eliquis today. And continue with Augmentin per group work program director. for bilateral infiltrates in his lung deras. Leukocytosis is back to normal Other than that his no sodium is stable at 127, liver enzymes are trending up, blood pressure is low normal but patient is on room air. Objective - Vital Signs Vital signs: Vital Signs Temp 97.7 F 11/20/20 12:00 Pulse 85 11/20/20 12:00 Resp 14 11/20/20 12:00 BP 115/81 11/20/20 12:00 Pulse Ox 85 L 11/20/20 12:00 Intake & Output 11/19/20 11/20/20 11/20/20 18:59 06:59 18:59 Intake Total 652.417 447.442 561.81 Output Total 1130 1015 1675 Balance -477.583 -567.558 -1113.19 Weight 69.9 kg Intake: IV 240 260 140 Sodium Chloride 0.9% 1, 240 260 40 000 ml @ 20 mls/hr IV . Q24H [facility] Rx#:[id number] Intake, IV Titration 212.417 187.442 421.81 Amount Heparin Sod,Pork in 0.45% 212.417 187.442 46.81 NaCl 25,000 unit In 0.45 % NaCl 1 250ml.bag @ 18 UNITS/KG/HR 13.064 mls/hr IV .Q19H9M [facility] Rx#: [id number] Magnesium Sulfate-D5w Pmx 300 1 gm In Dextrose/Water 1 100ml.bag @ 100 mls/hr IVPB Q1H [facility] Rx#: [id number] Sodium Chloride 0.9% 1, 75 000 ml @ 75 mls/hr IV . [id number] [facility] Rx#:[id number] Oral 200 Output: Urine 1130 1015 1675 Other: Voiding Method Indwelling Catheter Indwelling Catheter Indwelling Catheter - Exam -GENERAL: The patient is alert and oriented he feels generally weak and lethargic. No respiratory distress HEENT: Pupils are round and equally reacting to light. EOMI. No scleral icterus. No conjunctival pallor. Normocephalic, atraumatic. No pharyngeal erythema. No thyromegaly. CARDIOVASCULAR: S1 and S2 present. No murmurs, rubs, or gallops. -PULMONARY: Chest is clear to auscultation, no wheezing . Bilateral basal crackles. ABDOMEN: Soft, nontender, nondistended, normoactive bowel sounds. No palpable organomegaly. MUSCULOSKELETAL: No joint swelling or deformity. -EXTREMITIES: No cyanosis, clubbing, . Bilateral patellar leg edema NEUROLOGICAL: Gross neurological examination did not reveal any focal deficits. SKIN: No rashes. no petechiae. - Labs CBC & Chem 7: 11/20/20 03:10 11/20/20 15:17 Labs: Abnormal Lab Results - Last 24 Hours (Table) 11/20/20 11/20/20 11/20/20 Range/Units 03:10 03:10 03:10 Lymphocytes # 0.6 L (1.0-4.8) k/uL APTT 35.7 H (22.0-30.0) sec Sodium 127 L (137-145) mmol/L Chloride 94 L (98-107) mmol/L BUN 8 L (9-20) mg/dL Creatinine 0.46 L (0.66-1.25) mg/dL Calcium 7.8 L (8.4-10.2) mg/dL Magnesium 1.3 L (1.6-2.3) mg/dL Total Bilirubin 2.0 H (0.2-1.3) mg/dL AST 607 H (17-59) U/L ALT 533 H (4-49) U/L Total Protein 4.9 L (6.3-8.2) g/dL Albumin 2.4 L (3.5-5.0) g/dL Microbiology - Last 24 Hours (Table) 11/17/20 10:03 Blood Culture - Preliminary Blood No Growth after 72 hours 11/18/20 08:10 Gram Stain - Preliminary Pleural Fluid Body Fluid Culture - Preliminary 11/17/20 19:57 Gram Stain - Final Sputum Sputum Culture - Final Assessment and Plan Assessment: Severe systolic congestive heart failure with ejection fraction less than 20% A. fib and RVR status post SUSIE and cardioversion on 11/16 Bilateral pleural effusion status post thoracocentesis, right on 11/17 and left on 11/18 Mitral regurgitation Bilateral infiltrates suspicious for pneumonia Generalized weakness secondary to above Acute hypoxic respiratory failure secondary to above Mild hypervolemic hyponatremia Plan: This is a pleasant 59 years old male who presents with CHF, A. fib, bilateral pleural effusion. Patient is undergoing thoracocentesis. He is on Augmentin, IV Lasix and heparin drip. Also he is on amiodarone, digoxin, HARJEET inhibitor and Aldactone. Cardiology and pulmonary/critical care team on the case Labs and medication were reviewed.. Continue same treatment. Continue with symptomatic treatment. Resume home medication. Monitor lytes and vitals. DVT and GI prophylaxis. Further recommendationsas per clinical course of the patient DVT prophylaxis: heparin GI Prophylaxis: Ppi Prognosis is guarded
[2020-11-21 00:58] LABS: Magnesium 1.8 mg/dL (1.6-2.3); Potassium 4.3 mmol/L (3.5-5.1)
[2020-11-21 04:24] LABS: HCT 45.1 % (39.0-53.0); MCH 33.2 pg (25.0-35.0); MCHC 33.3 g/dL (31.0-37.0); MCV 99.7 fL (80.0-100.0); Mean Platelet Volume 8.4; Platelet Count 195 k/uL (150-450); RBC 4.53 m/uL (4.30-5.90); RDW 13.5 % (11.5-15.5); WBC 10.1 k/uL (3.8-10.6)
[2020-11-21 04:45] LABS: ALT 452 U/L (4-49); AST 355 U/L (17-59); African American GFR (CKD) >90 (>60 ml/min/1.73 sqM); Albumin 2.4 g/dL (3.5-5.0); Alkaline Phosphatase 112 U/L (38-126); Anion Gap 6 mmol/L; Blood Urea Nitrogen 6 mg/dL (9-20); Calcium 7.7 mg/dL (8.4-10.2); Carbon Dioxide 25 mmol/L (22-30); Chloride 97 mmol/L (98-107); Glucose 82 mg/dL (74-99); Magnesium 1.7 mg/dL (1.6-2.3); Non-African American GFR(CKD) >90 (>60 ml/min/1.73 sqM); Phosphorus 2.5 mg/dL (2.5-4.5); Potassium 4.3 mmol/L (3.5-5.1); Sodium 128 mmol/L (137-145); Total Bilirubin 1.6 mg/dL (0.2-1.3)
[2020-11-21] MEDS: MAGNESIUM SULFATE-D5W PMX 1 GM in DEXTROSE/WATER 1 100ML.BAG IVPB SCH ×2 (06:19→08:44)
--- NOTE | 2020-11-21 06:49 | XR ---
EXAMINATION TYPE: XR chest 1V portable DATE OF EXAM: 11/21/2020 CLINICAL HISTORY: Difficulty breathing and pleural effusions progress study. TECHNIQUE: Single AP portable upright view of the chest is obtained. COMPARISON: Chest x-ray from one day earlier and older studies FINDINGS: Persistent small to moderate-sized left pleural effusion. Background chronic emphysematous change with multifocal opacities bilaterally redemonstrated. Suspect some underlying pulmonary fibro tic change. Cardiac silhouette size is stable and likely upper limits of normal. Osseous structures r emain intact. IMPRESSION: Cardiomegaly and chronic emphysematous and pulmonary fibrotic changes with bilateral multifocal opaci ties and persistent small to moderate size left pleural effusion. Only significant interval change is continued worsening left basilar masslike opacity could reflect round pneumonia and/or compressive a telectasis.
[2020-11-21] MEDS: IPRATROPIUM-ALBUTEROL 3 ML NEB INHALATION SCH ×3 (07:15→20:41)
--- NOTE | 2020-11-21 07:59 | P.PN ---
Subjective Progress Note Date: 11/21/20 New onset cardiomyopathy, A. fib with RVR, acute systolic CHF exacerbation 59-year-old male, that we saw in the emergency department yesterday. The patient apparently does not see a doctor on a regular basis. He denies any major medical problems. He came into the emergency room on November 15, complaining of weakness, fatigue, shortness of breath, and lower extremity edema. The patient does smoke a pack of cigarettes a day, and states that he drinks 2 beers a day. In the emergency department, he was noted to have atrial fibrillation with RVR, treated with beta vince, Cardizem, and amiodarone. Currently, the patient remains on IV heparin, via weightbase protocol, am iodarone, 0.5 mg/m, and O2 at 6 L. Today, we did a right-sided thoracentesis, and removed 1200 mL of fluid from the right chest cavity. Tomorrow, we will do the left side. Labs today include a PTT of 62, sodium 1:30, potassium 3.6, chlorides 97, CO2 26, anion gap 7, BUN 18, and creatinine 0.74. Pro-calcitonin level was 0.98. Coronavirus testing was negative. Repeat chest x-ray shows improved aeration to the right lung, with no evidence of pneumothorax. On 11/18/2020 patient seen in follow-up in the intensive care unit, last night he had a run of V. Fib, and required CPR and synchronized cardioversion which was successful, with return of spontaneous circulation. Rhythm strips reveal V. fib which resembles torsade V. fib. He was given IV amiodarone, currently on oral amiodarone, patient has been extensively diuresed, had been on 40 mg of Lasix 3 times daily, and he had produced 7.3 L in urine output over the last 24 hours, and he is in -5.5 L over the last 24 hours, he had low potassium, low calcium, and low magnesium. His potassium is 2.9 and today's labs, magnesium is 1.5 and this was previously at 1.2 patient was given 2 g of magnesium sulfate, his calcium level is 7.3. His sodium level is persistently low at 127, his chloride is 89, his CO2 is 34. His lower extremity edema has improved, he is seems to be breathing comfortably, he is on 4 L of oxygen her pulse oximetry 97%, he status post right-sided thoracentesis today with removal of 1.2 L of yellow fluid, and the pleural fluid analysis and cultures were ordered on the fluid however it was inadvertently discarded. Follow-up chest x-ray showed no right-sided pneumothorax with improved right-sided pleural effusion, and some new central mild right alveolar reexpansion pulmonary edema. Patient still has persistent small to moderate sized left pleural effusion and he underwent left- sided thoracentesis this morning and another 1.2 L of yellow fluid was removed and sent for analysis cultures and cytology. Patient tolerated procedure well, post procedure chest x-ray showed cardiomegaly with bilateral infiltrates and small effusions, and marked reduction in the amount of pleural fluid on the left, no evidence of pneumothorax. Patient has had no fever or chills, he is on oral Augmentin for possibility of infection. No cough, no hemoptysis, today's white blood cell count is 12.1, hemoglobin is 14.2. His urine culture was sent and pending at this time, his sputum culture showed many PMNs, many gram- positive cocci, a few gram-negative bacilli and rare gram-positive bacilli. On 11/19/2000 patient seen in follow-up in the intensive care unit, he is resting comfortably in bed, denies any worsening dyspnea, room air pulse ox is 87-89%, he was placed on 2 L supplemental oxygen, his breathing is about the same, occasional cough, at times he is able to bring up thick phlegm with dark tinged blood. No complaints of chest discomfort, he remains on heparin infusion and weight based protocol, he is on 0.9 normal seen at a 20 ML per hour, he is status post right and left thoracentesis. His chest x-ray shows mild interval worsening in the pneumonic infiltrates, and persistent small bilateral pleural effusions, no pneumothorax following thoracentesis. Pleural fluid analysis reveals transudative fluid, cytology pending, pleural fluid cultures pending, pleural fluid gram stain shows no growth at the 24-hour alden. Today's labs have been reviewed, his white blood cell count is coming down, at 9.9 today, hemoglobin is 13.7, sodium is 127, potassium is 4.1, chloride is improved at 93, CO2 remains elevated at 34, his last pro-calcitonin on 11/17/2020 was still elevated at 1.12. he is on Augmentin for empiric antibiotic coverage. His had no fever or chills. No nausea vomiting or diarrhea, lung sounds reveal coarse bibasilar crackles, no rhonchi, no wheezing. His Lasix remains on hold, and despite that patient is a negative fluid balance of over 1 L over last 24 hours. Mild lower extremity edema. On 11/20/2020 patient seen in follow-up in the intensive care unit, he is currently resting comfortably in bed, he is a 2 L of oxygen his pulse ox is 94%, no complaints of chest pain, no worsening dyspnea, lung sounds revealed coarse bilateral crackles, he has remained off Lasix for the last 48 hours, today's chest x-ray has been reviewed showing bilateral patchy infiltrates and pleural effusion on the left, fairly stable in appearance. 1+ lower extremity edema, patient is maintaining negative fluid balance he is in -1045 ML over last 24 hours. Remains on oral antibiotics in the form of Augmentin, he states his phlegm production has decreased, still has some blood-tinged phlegm at times. No fever, today's labs have been reviewed showing white blood cell count 9.3, hemoglobin of 14.7, sodium is stable at 127, potassium is 4.3, chloride is 94, CO2 is 28, B1 is a creatinine 0.46, his total bilirubin is up from the previous value and is currently at 2, AST is 607, improved, and ALT is 533, worsening from previous value, alkaline phosphatase is 109. Pleural fluid analysis revealed transudative fluid, no growth on the pleural fluid cultures. He is currently in sinus mechanism with a controlled rate, no recurrence of V. fib. His magnesium is still low at 1.3, and he was given 3 g of magnesium sulfate On 11/21/2020, the patient is being seen for a FU. The patient is on oxygen at 2 L per minute nasal cannula. The patient came in with shortness of breath, deco mpensated heart failure, atrial fibrillation with rapid ventricular response. The patient was treated with a combination of beta blockers, Cardizem drip and amiodarone and the patient was treated with IV heparin. The patient also received SUSIE with subsequent cardioversion. During the course of the disease, the patient's required bilateral thoracentesis and the fluid was a transudate. JENIFFER-19 testing was negative. On 11/18/2020, the patient got moved to the intensive care unit as the patient had a run of V. fib and required CPR and defibrillation if was successful and there was return of spontaneous circulation. The patient os currently on a combination of Lasix and Aldactone. She is also on long-term anticoagulation with Eliquis. The patient underwent cardiac catheterization yesterday. In terms of his atrial fibrillation, the patient is currently on oral amiodarone at a dose of 200 mg 3 times a day. He is also on anticoagulation with Eliquis. Cardiac catheterization was done yesterday and it showed with a percent RCA lesion, and the patient currently is on 2 L of oxygen by nasal cannula. Chest x-ray showing some interval improvement in the volume status and the patient remains on Lasix 20 mg by mouth daily and Zestril 2.5 mg by mouth daily. Objective - Vital Signs Vital signs: Vital Signs Temp 98.6 F 11/21/20 02:00 Pulse 90 11/21/20 07:29 Resp 13 11/21/20 06:00 BP 101/83 11/21/20 06:00 Pulse Ox 90 L 11/21/20 06:00 Intake & Output 11/20/20 11/21/20 11/21/20 18:59 06:59 18:59 Intake Total 1211.81 565 Output Total 3099 875 Balance -1887.19 -310 Weight 67.2 kg Intake: IV 140 565 Sodium Chloride 0.9% 1, 40 565 000 ml @ 20 mls/hr IV . Q24H [facility] Rx#:[id number] Intake, IV Titration 1071.81 Amount Heparin Sod,Pork in 0.45% 46.81 NaCl 25,000 unit In 0.45 % NaCl 1 250ml.bag @ 18 UNITS/KG/HR 13.064 mls/hr IV .Q19H9M [facility] Rx#: [id number] Magnesium Sulfate-D5w Pmx 300 1 gm In Dextrose/Water 1 100ml.bag @ 100 mls/hr IVPB Q1H [facility] Rx#: [id number] Magnesium Sulfate-D5w Pmx 200 1 gm In Dextrose/Water 1 100ml.bag @ 100 mls/hr IVPB Q1H [facility] Rx#: [id number] Sodium Chloride 0.9% 1, 525 000 ml @ 75 mls/hr IV . [id number] [facility] Rx#:[id number] Output: Urine 3099 875 Other: Voiding Method Indwelling Catheter Indwelling Catheter - Exam GENERAL EXAM: Alert, pleasant, 59-year-old white male, room air pulse ox is 87- 89%, patient was placed on 2 L of supplemental oxygen comfortable in no apparent distress. HEAD: Normocephalic/atraumatic. EYES: Normal reaction of pupils, equal size. Conjunctiva pink, sclera white. NOSE: Clear with pink turbinates. THROAT: No erythema or exudates. NECK: No masses, no JVD, no thyroid enlargement, no adenopathy. CHEST: No chest wall deformity. Symmetrical expansion. LUNGS: Equal air entry with diminished breath sounds with basilar crackles CVS: Regular rate and rhythm, normal S1 and S2, no gallops, no murmurs, no rubs ABDOMEN: Soft, nontender. No hepatosplenomegaly, normal bowel sounds, no guarding or rigidity. EXTREMITIES: No clubbing, mild lower extremity edema, no cyanosis, 2+ pulses and upper and lower extremities. MUSCULOSKELETAL: Muscle strength and tone normal. SPINE: No scoliosis or deformity SKIN: No rashes CENTRAL NERVOUS SYSTEM: Alert and oriented -3. No focal deficits, tone is normal in all 4 extremities. PSYCHIATRIC: Alert and oriented -3. Appropriate affect. Intact judgment and insight. - Labs CBC & Chem 7: 11/21/20 03:17 11/21/20 03:17 Labs: Abnormal Lab Results - Last 24 Hours (Table) 11/20/20 11/21/20 Range/Units 15:17 03:17 Sodium 128 L (137-145) mmol/L Chloride 97 L (98-107) mmol/L BUN 6 L (9-20) mg/dL Creatinine 0.44 L (0.66-1.25) mg/dL Calcium 7.7 L (8.4-10.2) mg/dL Phosphorus 2.3 L (2.5-4.5) mg/dL Total Bilirubin 1.6 H (0.2-1.3) mg/dL AST 355 H (17-59) U/L ALT 452 H (4-49) U/L Total Protein 5.0 L (6.3-8.2) g/dL Albumin 2.4 L (3.5-5.0) g/dL Microbiology - Last 24 Hours (Table) 11/17/20 10:03 Blood Culture - Preliminary Blood No Growth after 72 hours 11/18/20 08:10 Gram Stain - Preliminary Pleural Fluid Body Fluid Culture - Preliminary 11/17/20 19:57 Gram Stain - Final Sputum Sputum Culture - Final Assessment and Plan Plan: #1. acute hypoxic respiratory failure secondary to severe cardiomyopathy, with ejection fraction of less than 20%, and patient presented with acute systolic CHF and bilateral pleural effusions, negative for COVID 19, RSV or Influenza is CTA of the chest showed bilateral pleural effusion, CHF and bilateral areas of consolidation with a elevated pro calcitonin and the patient was given IV antibiotics accordingly. Received bilateral thoracentesis. Currently off treatment about 2 by nasal cannula. #2. Acute systolic CHF, improved and more compensated on today's evaluation #3. Atrial fibrillation with RVR, currently back into sinus rhythm. #4. Episode of V. fib, possibly torsade, pulseless, patient received CPR and synchronous cardioversion on 11/17/2020 with ROSC #5. Bilateral pleural effusions, status post right-sided thoracentesis with 1.2 L removed on 11/17/2020, and left-sided thoracentesis with 1.2 L removed on 10/22 on the right, left-sided pleural fluid showed transudate #6. Multiple electrolyte abnormalities, including hyponatremia, hypokalemia, hypomagnesemia and hypocalcemia #7. Elevated d-dimer with no evidence of PE on the CTA chest #8. Anion gap metabolic acidosis, improved #9. History of chronic alcohol use #10. History of chronic tobacco use and nicotine addiction rule out COPD #11 CAD with 100% RCA lesion, rest of the coronaries are patent and within normal limits. Plan: Continue Lasix 20 mg daily, continue Aldactone Continue amiodarone 200 mg by mouth 3 times a day Continue anticoagulation with Eliquis 5 mg by mouth twice a day IV fluids to KVO The patient has been negative fluid balance. Chest x-ray showing improvement in the volume status. Pleural fluid has been a transudate Procalcitonin was elevated at 1.12 and the patient was placed on Augmentin. Repeat troponin calcitonin level No recurrence of V. fib, remains in sinus mechanism Cardiology is following, and cardiac catheterization to be completed and the patient was found to have 100% RCA lesion and the rest of the coronaries were patent Continue oral antibiotics Transferred outside the intensive care unit today.
[2020-11-21] MEDS: APIXABAN 5 MG TAB PO SCH ×2 (08:55→20:35)
[2020-11-21] MEDS: AMIODARONE 200 MG TAB PO SCH ×3 (08:55→23:01)
[2020-11-21] MEDS: SPIRONOLACTONE 25 MG TAB PO SCH (08:56)
[2020-11-21] MEDS: FUROSEMIDE 20 MG TAB PO SCH ×2 (08:56→15:59)
[2020-11-21] MEDS: PANTOPRAZOLE 40 MG/10 ML VIAL IV SCH (08:56)
[2020-11-21] MEDS: AMOXIC-POT CLAV 875-125MG 1 EACH TAB PO SCH ×2 (08:56→20:35)
[2020-11-21] MEDS: carvediloL 3.125 MG TAB PO SCH ×2 (08:58→17:06)
[2020-11-21 10:02] VITALS: BMI 21.2
--- NOTE | 2020-11-21 10:26 | PN ---
PROGRESS NOTE Mr. Marbin Chin presented to the hospital with what seems to be a new onset atrial fibrillation, heart failure and had a cardiac arrest requiring CPR. Cardiac cath revealed total occlusion of RCA with collaterals from the left system. No significant disease in the left side. His EF is less than 20%. He will need a Life Vest. Currently is being monitored. He remains in sinus rhythm, hemodynamically stable, has some shortness of breath. PHYSICAL EXAMINATION: Vitals are stable. JVD 1 cm. No carotid bruit. S1, S2 heard normally, short systolic murmur at the left sternal border. Lungs reveal fine rales both bases. Abdomen is soft. Lower extremities reveal diminished pulses. Central nervous system is normal. IMPRESSION: 1. 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 2. Alcoholism. 3. History of a new onset atrial fibrillation, paroxysmal, back in sinus. 4. History of alcoholism. RECOMMENDATION: I am recommending that we add a small dose of carvedilol 3.125 mg b.i.d., increase Lasix to 20 mg b.i.d. and based on clinical course we will make further recommendations. Prognosis remains guarded. MMODL / IJN: [id number] /
--- NOTE | 2020-11-21 22:20 | P.PN ---
Subjective This is a pleasant 59 years old male With past medical history of diabetes mellitus, hypertension, hyperlipidemia, GI bleed, hypothyroidism. Presents because of generalized weakness, worsening over 2 weeks.. Found to have A. fib and RVR and severe CHF with ejection fraction less than 20% and a d-dimer was elevated about 3.1, so CTA of the chest was obtained showing no PE but bilateral pleural effusion, patient underwent a thoracocentesis today with 1.0 L removed and Plavix for left thoracotomy cc tomorrow. Also there is an evidence of bilateral infiltrates and mitral regurgitation. Patient remains mildly hypoxic with oxygen saturation low 90s on 3 L oxygen via nasal cannula with evidence of venous congestion patient is placed on Lasix 40 mg 3 times a day. Also he is on heparin drip. Cardiology recommended amiodarone, lisinopril, digoxin. No varicose because blood pressure on the low normal site, currently well 86/54. Mild increase WBC at 13.9 while on steroids. Sodium is 1:30 Patient also is on Augmentin, Lasix IV, heparin drip, no steroids 11/18/2020 Patient lying in bed comfortable not in distress, no chest pain or dyspnea, no exertional dyspnea because he stayed in bed. No other specific or new complaints. He is saturating 91-94% on 4 L/m of oxygen. Potassium 2.9 and magnesium 1.5 been replaced This Lasix. Because his edema resolved, electrolytes abnormalities are correct per Protocol. Cardiology are pending for cardiac cath 11/19/2020 Patient with no dyspnea or chest pain but is sitting in bed most of the time. He is status post bilateral thoracentesis on 11/17/29. Bilateral leg edema. Cardiology team are planning for cardiac cath in 24-48 hours , in the meantime patient kept on heparin drip as well as amiodarone and digoxin for his cardiac arrhythmia/A. fib. Also he is on lisinopril and Aldactone for his heart failure. His bilateral infiltrates or suspicious for pneumonia that's why he was placed on Augmentin. Deb normal today. Sodium coming down to 1:30 down to 127. Patient is on room air. Blood pressure is low normal but tolerated by the patient. Echocardiogram showing severe global hypokinesia with ejection fraction less than 20% and admin assistant recommended lifevest prior to discharge . 11/20/20 Patient remains in the ICU, asymptomatic but he is sitting in bed most of the time. He has severe ejection fraction of less than 20 and severe global hypokinesia, and cardiology started him on normal saline at 75 L/h and a preparation for cardiac cath tomorrow, pulmonary and returned and it small dose of Lasix 20 mg daily. His heparin drip was switched to Eliquis today. And continue with Augmentin per manager of case management. for bilateral infiltrates in his lung deras. Leukocytosis is back to normal Other than that his no sodium is stable at 127, liver enzymes are trending up, blood pressure is low normal but patient is on room air. 11/21/2020 This is a pleasant 59 years old male presents with new-onset A. fib, he has severe cardiomyopathy with ejection fraction less than 20%, he is also status post SUSIE and cardioversion on 11/16. Found to have bilateral pleural effusion status post bilateral thoracentesis on 11/17 and 11/18, also echo showed evidence of mitral regurgitation. Augmentin was started for him for bilateral pulmonary infiltrate with Protonix calcitonin is trending down 1.1 down to 0.49. Labor Standards Director and pulmonary/electrician's helper on the case. Patient clinically doing good and he is out of bed to chair today. No chest pain or dyspnea over the last 2 days. Labor Standards Director placed him on antiarrhythmic medication including amiodarone 200 mg twice daily, digoxin, also Coreg 3.125 mg and oral Lasix 20 mg twice daily. Also he was started on Eliquis. His sodium is stable at 129, liver enzymes trending down, he is on room air, blood pressure is low normal. Chest x-ray from today showing bilateral multifocal opacity with left pleural effusion. Patient is transferred out of the ICU to select unit today. Upon discharge admin assistant recommended lifevest. Objective - Vital Signs Vital signs: Vital Signs Temp 97.3 F L 11/21/20 08:00 Pulse 86 11/21/20 11:15 Resp 16 11/21/20 09:00 BP 121/86 11/21/20 09:00 Pulse Ox 93 L 11/21/20 09:00 Intake & Output 11/20/20 11/21/20 11/21/20 18:59 06:59 18:59 Intake Total 1211.81 565 672 Output Total 3099 875 225 Balance -1887.19 -310 447 Weight 67.2 kg 67.2 kg Intake: IV 140 565 230 Magnesium Sulfate-D5w Pmx 200 1 gm In Dextrose/Water 1 100ml.bag @ 100 mls/hr IVPB Q1H ISABELLA Rx#: [id number] Sodium Chloride 0.9% 1, 40 565 30 000 ml @ 20 mls/hr IV . Q24H ISABELLA Rx#:[id number] Intake, IV Titration 1071.81 Amount Heparin Sod,Pork in 0.45% 46.81 NaCl 25,000 unit In 0.45 % NaCl 1 250ml.bag @ 18 UNITS/KG/HR 13.064 mls/hr IV .[id number] ISABELLA Rx#: [id number] Magnesium Sulfate-D5w Pmx 300 1 gm In Dextrose/Water 1 100ml.bag @ 100 mls/hr IVPB Q1H IS[facility]LLA Rx#: [id number] Magnesium Sulfate-D5w Pmx 200 1 gm In Dextrose/Water 1 100ml.bag @ 100 mls/hr IVPB Q1H IS[facility]ELLA Rx#: [id number] Sodium Chloride 0.9% 1, 525 000 ml @ 75 mls/hr IV . [id number] IS[facility]LLA Rx#:[id number] Oral 442 Output: Urine 3099 875 225 Other: Voiding Method Indwelling Catheter Indwelling Catheter Indwelling Catheter - Exam -GENERAL: The patient is alert and oriented he feels generally weak and lethargic. No respiratory distress HEENT: Pupils are round and equally reacting to light. EOMI. No scleral icterus. No conjunctival pallor. Normocephalic, atraumatic. No pharyngeal erythema. No thyromegaly. CARDIOVASCULAR: S1 and S2 present. No murmurs, rubs, or gallops. -PULMONARY: Chest is clear to auscultation, no wheezing . Bilateral basal crackles. ABDOMEN: Soft, nontender, nondistended, normoactive bowel sounds. No palpable organomegaly. MUSCULOSKELETAL: No joint swelling or deformity. -EXTREMITIES: No cyanosis, clubbing, . Bilateral patellar leg edema NEUROLOGICAL: Gross neurological examination did not reveal any focal deficits. SKIN: No rashes. no petechiae. - Labs CBC & Chem 7: 11/21/20 03:17 11/21/20 03:17 Labs: Abnormal Lab Results - Last 24 Hours (Table) 11/20/20 11/21/20 Range/Units 15:17 03:17 Sodium 128 L (137-145) mmol/L Chloride 97 L (98-107) mmol/L BUN 6 L (9-20) mg/dL Creatinine 0.44 L (0.66-1.25) mg/dL Calcium 7.7 L (8.4-10.2) mg/dL Phosphorus 2.3 L (2.5-4.5) mg/dL Total Bilirubin 1.6 H (0.2-1.3) mg/dL AST 355 H (17-59) U/L ALT 452 H (4-49) U/L Total Protein 5.0 L (6.3-8.2) g/dL Albumin 2.4 L (3.5-5.0) g/dL Microbiology - Last 24 Hours (Table) 11/17/20 10:03 Blood Culture - Preliminary Blood No Growth after 96 hours 11/18/20 08:10 Gram Stain - Preliminary Pleural Fluid Body Fluid Culture - Preliminary Assessment and Plan Assessment: Severe systolic congestive heart failure with ejection fraction less than 20% A. fib and RVR status post SUSIE and cardioversion on 11/16 Bilateral pleural effusion status post thoracocentesis, right on 11/17 and left on 11/18 Mitral regurgitation Bilateral infiltrates suspicious for pneumonia Generalized weakness secondary to above Acute hypoxic respiratory failure secondary to above Mild hypervolemic hyponatremia Plan: This is a pleasant 59 years old male who presents with CHF, A. fib, bilateral pleural effusion. Patient is undergoing thoracocentesis. He is on Augmentin, IV Lasix and heparin drip. Also he is on amiodarone, digoxin, HARJEET inhibitor and Aldactone. Cardiology and pulmonary/critical care team on the case Labs and medication were reviewed.. Continue same treatment. Continue with symptomatic treatment. Resume home medication. Monitor lytes and vitals. DVT and GI prophylaxis. Further recommendationsas per clinical course of the patient DVT prophylaxis: heparin GI Prophylaxis: Ppi Prognosis is guarded
[2020-11-22] MEDS: carvediloL 3.125 MG TAB PO SCH ×2 (07:00→17:55)
[2020-11-22] MEDS: IPRATROPIUM-ALBUTEROL 3 ML NEB INHALATION SCH ×3 (07:55→21:02)
[2020-11-22] MEDS: FUROSEMIDE 20 MG TAB PO SCH ×2 (09:35→15:47)
[2020-11-22] MEDS: AMIODARONE 200 MG TAB PO SCH ×3 (09:35→20:52)
[2020-11-22] MEDS: APIXABAN 5 MG TAB PO SCH ×2 (09:35→19:45)
[2020-11-22] MEDS: AMOXIC-POT CLAV 875-125MG 1 EACH TAB PO SCH ×2 (09:35→19:45)
[2020-11-22] MEDS: SPIRONOLACTONE 25 MG TAB PO SCH (09:35)
[2020-11-22] MEDS: PANTOPRAZOLE 40 MG/10 ML VIAL IV SCH (09:36)
--- NOTE | 2020-11-22 12:59 | P.PN ---
Subjective Progress Note Date: 11/22/20 New onset cardiomyopathy, A. fib with RVR, acute systolic CHF exacerbation 59-year-old male, that we saw in the emergency department yesterday. The patient apparently does not see a doctor on a regular basis. He denies any major medical problems. He came into the emergency room on November 15, complaining of weakness, fatigue, shortness of breath, and lower extremity edema. The patient does smoke a pack of cigarettes a day, and states that he drinks 2 beers a day. In the emergency department, he was noted to have atrial fibrillation with RVR, treated with beta vince, Cardizem, and amiodarone. Currently, the patient remains on IV heparin, via weightbase protocol, a miodarone, 0.5 mg/m, and O2 at 6 L. Today, we did a right-sided thoracentesis, and removed 1200 mL of fluid from the right chest cavity. Tomorrow, we will do the left side. Labs today include a PTT of 62, sodium 1:30, potassium 3.6, chlorides 97, CO2 26, anion gap 7, BUN 18, and creatinine 0.74. Pro-calcitonin level was 0.98. Coronavirus testing was negative. Repeat chest x-ray shows improved aeration to the right lung, with no evidence of pneumothorax. On 11/18/2020 patient seen in follow-up in the intensive care unit, last night he had a run of V. Fib, and required CPR and synchronized cardioversion which was successful, with return of spontaneous circulation. Rhythm strips reveal V. fib which resembles torsade V. fib. He was given IV amiodarone, currently on oral amiodarone, patient has been extensively diuresed, had been on 40 mg of Lasix 3 times daily, and he had produced 7.3 L in urine output over the last 24 hours, and he is in -5.5 L over the last 24 hours, he had low potassium, low calcium, and low magnesium. His potassium is 2.9 and today's labs, magnesium is 1.5 and this was previously at 1.2 patient was given 2 g of magnesium sulfate, his calcium level is 7.3. His sodium level is persistently low at 127, his chloride is 89, his CO2 is 34. His lower extremity edema has improved, he is seems to be breathing comfortably, he is on 4 L of oxygen her pulse oximetry 97%, he status post right-sided thoracentesis today with removal of 1.2 L of yellow fluid, and the pleural fluid analysis and cultures were ordered on the fluid however it was inadvertently discarded. Follow-up chest x-ray showed no right-sided pneumothorax with improved right-sided pleural effusion, and some new central mild right alveolar reexpansion pulmonary edema. Patient still has persistent small to moderate sized left pleural effusion and he underwent left- sided thoracentesis this morning and another 1.2 L of yellow fluid was removed and sent for analysis cultures and cytology. Patient tolerated procedure well, post procedure chest x-ray showed cardiomegaly with bilateral infiltrates and small effusions, and marked reduction in the amount of pleural fluid on the left, no evidence of pneumothorax. Patient has had no fever or chills, he is on oral Augmentin for possibility of infection. No cough, no hemoptysis, today's white blood cell count is 12.1, hemoglobin is 14.2. His urine culture was sent and pending at this time, his sputum culture showed many PMNs, many gram- positive cocci, a few gram-negative bacilli and rare gram-positive bacilli. On 11/19/2000 patient seen in follow-up in the intensive care unit, he is resting comfortably in bed, denies any worsening dyspnea, room air pulse ox is 87-89%, he was placed on 2 L supplemental oxygen, his breathing is about the same, occasional cough, at times he is able to bring up thick phlegm with dark tinged blood. No complaints of chest discomfort, he remains on heparin infusion and weight based protocol, he is on 0.9 normal seen at a 20 ML per hour, he is status post right and left thoracentesis. His chest x-ray shows mild interval worsening in the pneumonic infiltrates, and persistent small bilateral pleural effusions, no pneumothorax following thoracentesis. Pleural fluid analysis reveals transudative fluid, cytology pending, pleural fluid cultures pending, pleural fluid gram stain shows no growth at the 24-hour alden. Today's labs have been reviewed, his white blood cell count is coming down, at 9.9 today, hemoglobin is 13.7, sodium is 127, potassium is 4.1, chloride is improved at 93, CO2 remains elevated at 34, his last pro-calcitonin on 11/17/2020 was still elevated at 1.12. he is on Augmentin for empiric antibiotic coverage. His had no fever or chills. No nausea vomiting or diarrhea, lung sounds reveal coarse bibasilar crackles, no rhonchi, no wheezing. His Lasix remains on hold, and despite that patient is a negative fluid balance of over 1 L over last 24 hours. Mild lower extremity edema. On 11/20/2020 patient seen in follow-up in the intensive care unit, he is currently resting comfortably in bed, he is a 2 L of oxygen his pulse ox is 94%, no complaints of chest pain, no worsening dyspnea, lung sounds revealed coarse bilateral crackles, he has remained off Lasix for the last 48 hours, today's chest x-ray has been reviewed showing bilateral patchy infiltrates and pleural effusion on the left, fairly stable in appearance. 1+ lower extremity edema, patient is maintaining negative fluid balance he is in -1045 ML over last 24 hours. Remains on oral antibiotics in the form of Augmentin, he states his phlegm production has decreased, still has some blood-tinged phlegm at times. No fever, today's labs have been reviewed showing white blood cell count 9.3, hemoglobin of 14.7, sodium is stable at 127, potassium is 4.3, chloride is 94, CO2 is 28, B1 is a creatinine 0.46, his total bilirubin is up from the previous value and is currently at 2, AST is 607, improved, and ALT is 533, worsening from previous value, alkaline phosphatase is 109. Pleural fluid analysis revealed transudative fluid, no growth on the pleural fluid cultures. He is currently in sinus mechanism with a controlled rate, no recurrence of V. fib. His magnesium is still low at 1.3, and he was given 3 g of magnesium sulfate On 11/21/2020, the patient is being seen for a FU. The patient is on oxygen at 2 L per minute nasal cannula. The patient came in with shortness of breath, dec ompensated heart failure, atrial fibrillation with rapid ventricular response. The patient was treated with a combination of beta blockers, Cardizem drip and amiodarone and the patient was treated with IV heparin. The patient also received SUSIE with subsequent cardioversion. During the course of the disease, the patient's required bilateral thoracentesis and the fluid was a transudate. COVID-19 testing was negative. On 11/18/2020, the patient got moved to the intensive care unit as the patient had a run of V. fib and required CPR and defibrillation if was successful and there was return of spontaneous circulation. The patient os currently on a combination of Lasix and Aldactone. She is also on long-term anticoagulation with Eliquis. The patient underwent cardiac catheterization yesterday. In terms of his atrial fibrillation, the patient is currently on oral amiodarone at a dose of 200 mg 3 times a day. He is also on anticoagulation with Eliquis. Cardiac catheterization was done yesterday and it showed with a percent RCA lesion, and the patient currently is on 2 L of oxygen by nasal cannula. Chest x-ray showing some interval improvement in the volume status and the patient remains on Lasix 20 mg by mouth daily and Zestril 2.5 mg by mouth daily. On today's evaluation of 11/22/2020, the patient is comfortable in bed. The patient is currently on room air oxygen. He was in the intensive care unit earlier. He underwent cardiac catheterization that showed 100% occlusion of the RCA and the patient will be offered medical management. Meanwhile, the patient is also being treated for his CHF. He is currently on Lasix and the Lasix as was switched to oral Lasix 20 mg by mouth twice a day and he was also started on Aldactone 12.5 mg by mouth daily.. He is on Zestril 20 mg by mouth twice a day and is also on amiodarone 200 mg by mouth 3 times a day. He was started on long-term medical condition with Eliquis 5 mg by mouth twice a day. He is also on Coreg 3.125 mg twice a day. On today's evaluation, the patient was found to be in a normal sinus rhythm. Renal function is stable with a BUN of 6 and a creatinine of 0.44. Sodium level is at 128. LFTs are improving and AST is down to 355, ALT is down to 452, and appropriate calcitonin level is also down to 0.49. The patient remains on oral Augmentin. Objective - Vital Signs Vital signs: Vital Signs Temp 97.5 F L 11/22/20 12:00 Pulse 70 11/22/20 12:48 Resp 16 11/22/20 12:48 BP 114/54 11/22/20 12:00 Pulse Ox 98 11/22/20 12:00 Intake & Output 11/21/20 11/22/20 11/22/20 18:59 06:59 18:59 Intake Total 892 460 Output Total 425 Balance 467 460 Weight 67.2 kg 66.1 kg Intake: IV 270 Magnesium Sulfate-D5w Pmx 200 1 gm In Dextrose/Water 1 100ml.bag @ 100 mls/hr IVPB Q1H [facility] Rx#: [id number] Sodium Chloride 0.9% 1, 70 000 ml @ 20 mls/hr IV . Q24H [facility]LLA Rx#:[id number] Oral 622 460 Output: Urine 425 Other: Voiding Method Indwelling Catheter Toilet Urinal # Voids 1 - Exam GENERAL EXAM: Alert, pleasant, 59-year-old white male, patient is currently on 3 L about 2 by nasal cannula with a pulse ox of 98% HEAD: Normocephalic/atraumatic. EYES: Normal reaction of pupils, equal size. Conjunctiva pink, sclera white. NOSE: Clear with pink turbinates. THROAT: No erythema or exudates. NECK: No masses, no JVD, no thyroid enlargement, no adenopathy. CHEST: No chest wall deformity. Symmetrical expansion. LUNGS: Equal air entry with diminished breath sounds with basilar crackles CVS: Regular rate and rhythm, normal S1 and S2, no gallops, no murmurs, no rubs ABDOMEN: Soft, nontender. No hepatosplenomegaly, normal bowel sounds, no guarding or rigidity. EXTREMITIES: No clubbing, mild lower extremity edema, no cyanosis, 2+ pulses and upper and lower extremities. MUSCULOSKELETAL: Muscle strength and tone normal. SPINE: No scoliosis or deformity SKIN: No rashes CENTRAL NERVOUS SYSTEM: Alert and oriented -3. No focal deficits, tone is normal in all 4 extremities. PSYCHIATRIC: Alert and oriented -3. Appropriate affect. Intact judgment and insight. - Labs CBC & Chem 7: 11/21/20 03:17 11/21/20 03:17 Labs: Abnormal Lab Results - Last 24 Hours (Table) 11/21/20 Range/Units 03:17 Procalcitonin 0.49 H (0.02-0.09) ng/mL Microbiology - Last 24 Hours (Table) 11/17/20 10:03 Blood Culture - Preliminary Blood No Growth after 120 hours 11/18/20 08:10 Gram Stain - Final Pleural Fluid Body Fluid Culture - Final Assessment and Plan Plan: #1. acute hypoxic respiratory failure secondary to severe cardiomyopathy, with ejection fraction of less than 20%, and patient presented with acute systolic CHF and bilateral pleural effusions, negative for COVID 19, RSV or Influenza is CTA of the chest showed bilateral pleural effusion, CHF and bilateral areas of consolidation with a elevated pro calcitonin and the patient was given IV antibiotics accordingly. Received bilateral thoracentesis. Currently off treatment about 2 by nasal cannula. Clinically the patient has improved. CHF is being further optimized. Currently the patient a combination of Lasix and Aldactone. The patient is also on a combination of Coreg and lisinopril. Less short of breath compared to yesterday. #2. Acute systolic CHF, improved and more compensated on today's evaluation #3. Atrial fibrillation with RVR, currently back into sinus rhythm. The patient is currently on amiodarone 200 mg by mouth 3 times a day in addition to long-term and to coagulation with Eliquis. #4. Episode of V. fib, possibly torsade, pulseless, patient received CPR and synchronous cardioversion on 11/17/2020 with ROSC #5. Bilateral pleural effusions, status post right-sided thoracentesis with 1.2 L removed on 11/17/2020, and left-sided thoracentesis with 1.2 L removed on 11/18/2020 on the right, left-sided pleural fluid showed transudate #6. Multiple electrolyte abnormalities, including hyponatremia, hypokalemia, hypomagnesemia and hypocalcemia #7. Elevated d-dimer with no evidence of PE on the CTA chest #8. Anion gap metabolic acidosis, improved #9. History of chronic alcohol use #10. History of chronic tobacco use and nicotine addiction rule out COPD #11 CAD with 100% RCA lesion, rest of the coronaries are patent and within normal limits. Plan: Continue Lasix 20 mg daily, continue Aldactone Maintain negative fluid balance Cardiac rhythm is currently sinus Continue amiodarone 200 mg by mouth 3 times a day Long-term anticoagulation with Eliquis 5 mg by mouth twice a day IV fluids to KVO and fluid restriction. The patient has been negative fluid balance. Chest x-ray showing improvement in the volume status. Pleural fluid has been a transudate Procalcitonin level is improving and the patient will be completing course of Augmentin No recurrence of V. fib, remains in sinus mechanism Cardiology is following, and cardiac catheterization to be completed and the patient was found to have 100% RCA lesion and the rest of the coronaries were patent Continue oral antibioticsClinically stable and will continue to follow along with the cardiac team.
--- NOTE | 2020-11-22 15:52 | P.PN ---
Subjective This is a pleasant 59-year-old male with no signifcant past medical history. 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 He denies any cardiac history. Denies history of diabetes, [place], stroke, hypertension. We have been asked to see in consultation for new onset atrial fibrillation with RVR and heart failure. Echocardiogram revealed severe LV dysfunction size to cardiomyopathy EF <20% 11/16/20: Patient had a SUSIE cardioversion with conversion to sinus rhythm. 11/18/20: Patient had an episode of polymorphic V. tach. Patient required brief CPR and shock with druze of the sinus rhythm. Patient underwent cardiac cath which revealed total occlusion of the RCA with collaterals from the left system. No significant disease in the left side. 11/22/20: Patient seen and examined at bedside, no acute distress. Patient maintains sinus mechanism heart rate 60-70's. Patient currently being maintained on amiodarone 200 mg 3 times a day, Eliquis 5 mg twice a day carvedilol 3.125 mg twice a day, Lasix 20 mg twice a day, lisinopril 2.5 mg daily, Aldactone 12.5 mg daily PHYSICAL EXAMINATION Blood pressure 114/54 heart rate 70 afebrile and maintaining oxygen saturation on 98% on room air CONSTITUTIONAL: No apparent distress. HEENT: Neck supple mild JVD. No carotid bruit. CHEST EXAMINATION: Lungs are clear auscultation bilaterally HEART EXAMINATION: Regular rate and rhythm. S1, S2 heard. Systolic murmur noted No gallops or rub. ABDOMEN: Soft, nontender. Positive bowel sounds. EXTREMITIES: 2+ peripheral pulses, No lower extremity edema and no calf tenderness. NEUROLOGIC EXAMINATION: Patient is awake, alert and oriented x3. 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 Mcginnis on discharge Patient will most likely discharge tomorrow Nurse Practitioner note has been reviewed, I agree with a documented findings and plan of care. Patient was seen and examined. Objective - Vital Signs Vital signs: Vital Signs Temp 97.5 F L 11/22/20 12:00 Pulse 70 11/22/20 12:57 Resp 16 11/22/20 12:57 BP 114/54 11/22/20 12:00 Pulse Ox 98 11/22/20 12:00 Intake & Output 11/21/20 11/22/20 11/22/20 18:59 06:59 18:59 Intake Total 892 680 Output Total 425 Balance 467 680 Weight 67.2 kg 66.1 kg Intake: IV 270 Magnesium Sulfate-D5w Pmx 200 1 gm In Dextrose/Water 1 100ml.bag @ 100 mls/hr IVPB Q1H ISABELLA Rx#: [id number] Sodium Chloride 0.9% 1, 70 000 ml @ 20 mls/hr IV . Q24H ISABELLA Rx#:[id number] Oral 622 680 Output: Urine 425 Other: Voiding Method Indwelling Catheter Toilet Toilet Urinal Urinal # Voids 1 1 - Labs CBC & Chem 7: 11/21/20 03:17 11/21/20 03:17 Labs: Abnormal Lab Results - Last 24 Hours (Table) 11/21/20 Range/Units 03:17 Procalcitonin 0.49 H (0.02-0.09) ng/mL Microbiology - Last 24 Hours (Table) 11/17/20 10:03 Blood Culture - Preliminary Blood No Growth after 120 hours 11/18/20 08:10 Gram Stain - Final Pleural Fluid Body Fluid Culture - Final
[2020-11-23] MEDS: carvediloL 3.125 MG TAB PO SCH (06:17)
[2020-11-23 07:33] LABS: Basophils % (A) 0 %; Eosinophils # (A) 0.4 k/uL (0-0.7); Eosinophils % (A) 4 %; HCT 45.1 % (39.0-53.0); HGB 14.8 gm/dL (13.0-17.5); Lymphocytes # (A) 0.7 k/uL (1.0-4.8); Lymphocytes % (A) 7 %; MCH 32.2 pg (25.0-35.0); MCHC 32.8 g/dL (31.0-37.0); MCV 98.2 fL (80.0-100.0); Mean Platelet Volume 8.2; Monocytes # (A) 0.9 k/uL (0-1.0); Monocytes % (A) 10 %; Neutrophils # (A) 7.2 k/uL (1.3-7.7); Neutrophils % (A) 77 %; Platelet Count 246 k/uL (150-450); RBC 4.59 m/uL (4.30-5.90); RDW 13.3 % (11.5-15.5); WBC 9.3 k/uL (3.8-10.6)
[2020-11-23 07:38] LABS: African American GFR (CKD) >90 (>60 ml/min/1.73 sqM); Anion Gap 7 mmol/L; Blood Urea Nitrogen 11 mg/dL (9-20); Carbon Dioxide 25 mmol/L (22-30); Chloride 98 mmol/L (98-107); Glucose 86 mg/dL (74-99); Non-African American GFR(CKD) >90 (>60 ml/min/1.73 sqM); Sodium 130 mmol/L (137-145)
[2020-11-23] MEDS: IPRATROPIUM-ALBUTEROL 3 ML NEB INHALATION SCH ×2 (07:40→11:30)
[2020-11-23] MEDS ORDERED: lisinopriL 5 MG TAB PO SCH (09:00)
[2020-11-23] MEDS: FUROSEMIDE 20 MG TAB PO SCH ×2 (09:18→15:39)
[2020-11-23] MEDS: AMIODARONE 200 MG TAB PO SCH ×2 (09:18→15:39)
[2020-11-23] MEDS: SPIRONOLACTONE 25 MG TAB PO SCH (09:18)
[2020-11-23] MEDS: APIXABAN 5 MG TAB PO SCH (09:18)
[2020-11-23] MEDS: AMOXIC-POT CLAV 875-125MG 1 EACH TAB PO SCH (09:19)
[2020-11-23] MEDS: PANTOPRAZOLE 40 MG/10 ML VIAL IV SCH (09:20)
[2020-11-23 10:01] VITALS: TEMP 97.1
--- NOTE | 2020-11-23 10:27 | P.PN ---
Subjective Progress Note Date: 11/23/20 New onset cardiomyopathy, A. fib with RVR, acute systolic CHF exacerbation 59-year-old male, that we saw in the emergency department yesterday. The patient apparently does not see a doctor on a regular basis. He denies any major medical problems. He came into the emergency room on November 15, complaining of weakness, fatigue, shortness of breath, and lower extremity edema. The patient does smoke a pack of cigarettes a day, and states that he drinks 2 beers a day. In the emergency department, he was noted to have atrial fibrillation with RVR, treated with beta vince, Cardizem, and amiodarone. Currently, the patient remains on IV heparin, via weightbase protocol, a miodarone, 0.5 mg/m, and O2 at 6 L. Today, we did a right-sided thoracentesis, and removed 1200 mL of fluid from the right chest cavity. Tomorrow, we will do the left side. Labs today include a PTT of 62, sodium 1:30, potassium 3.6, chlorides 97, CO2 26, anion gap 7, BUN 18, and creatinine 0.74. Pro-calcitonin level was 0.98. Coronavirus testing was negative. Repeat chest x-ray shows improved aeration to the right lung, with no evidence of pneumothorax. On 11/18/2020 patient seen in follow-up in the intensive care unit, last night he had a run of V. Fib, and required CPR and synchronized cardioversion which was successful, with return of spontaneous circulation. Rhythm strips reveal V. fib which resembles torsade V. fib. He was given IV amiodarone, currently on oral amiodarone, patient has been extensively diuresed, had been on 40 mg of Lasix 3 times daily, and he had produced 7.3 L in urine output over the last 24 hours, and he is in -5.5 L over the last 24 hours, he had low potassium, low calcium, and low magnesium. His potassium is 2.9 and today's labs, magnesium is 1.5 and this was previously at 1.2 patient was given 2 g of magnesium sulfate, his calcium level is 7.3. His sodium level is persistently low at 127, his chloride is 89, his CO2 is 34. His lower extremity edema has improved, he is seems to be breathing comfortably, he is on 4 L of oxygen her pulse oximetry 97%, he status post right-sided thoracentesis today with removal of 1.2 L of yellow fluid, and the pleural fluid analysis and cultures were ordered on the fluid however it was inadvertently discarded. Follow-up chest x-ray showed no right-sided pneumothorax with improved right-sided pleural effusion, and some new central mild right alveolar reexpansion pulmonary edema. Patient still has persistent small to moderate sized left pleural effusion and he underwent left- sided thoracentesis this morning and another 1.2 L of yellow fluid was removed and sent for analysis cultures and cytology. Patient tolerated procedure well, post procedure chest x-ray showed cardiomegaly with bilateral infiltrates and small effusions, and marked reduction in the amount of pleural fluid on the left, no evidence of pneumothorax. Patient has had no fever or chills, he is on oral Augmentin for possibility of infection. No cough, no hemoptysis, today's white blood cell count is 12.1, hemoglobin is 14.2. His urine culture was sent and pending at this time, his sputum culture showed many PMNs, many gram- positive cocci, a few gram-negative bacilli and rare gram-positive bacilli. On 11/19/2000 patient seen in follow-up in the intensive care unit, he is resting comfortably in bed, denies any worsening dyspnea, room air pulse ox is 87-89%, he was placed on 2 L supplemental oxygen, his breathing is about the same, occasional cough, at times he is able to bring up thick phlegm with dark tinged blood. No complaints of chest discomfort, he remains on heparin infusion and weight based protocol, he is on 0.9 normal seen at a 20 ML per hour, he is status post right and left thoracentesis. His chest x-ray shows mild interval worsening in the pneumonic infiltrates, and persistent small bilateral pleural effusions, no pneumothorax following thoracentesis. Pleural fluid analysis reveals transudative fluid, cytology pending, pleural fluid cultures pending, pleural fluid gram stain shows no growth at the 24-hour alden. Today's labs have been reviewed, his white blood cell count is coming down, at 9.9 today, hemoglobin is 13.7, sodium is 127, potassium is 4.1, chloride is improved at 93, CO2 remains elevated at 34, his last pro-calcitonin on 11/17/2020 was still elevated at 1.12. he is on Augmentin for empiric antibiotic coverage. His had no fever or chills. No nausea vomiting or diarrhea, lung sounds reveal coarse bibasilar crackles, no rhonchi, no wheezing. His Lasix remains on hold, and despite that patient is a negative fluid balance of over 1 L over last 24 hours. Mild lower extremity edema. On 11/20/2020 patient seen in follow-up in the intensive care unit, he is currently resting comfortably in bed, he is a 2 L of oxygen his pulse ox is 94%, no complaints of chest pain, no worsening dyspnea, lung sounds revealed coarse bilateral crackles, he has remained off Lasix for the last 48 hours, today's chest x-ray has been reviewed showing bilateral patchy infiltrates and pleural effusion on the left, fairly stable in appearance. 1+ lower extremity edema, patient is maintaining negative fluid balance he is in -1045 ML over last 24 hours. Remains on oral antibiotics in the form of Augmentin, he states his phlegm production has decreased, still has some blood-tinged phlegm at times. No fever, today's labs have been reviewed showing white blood cell count 9.3, hemoglobin of 14.7, sodium is stable at 127, potassium is 4.3, chloride is 94, CO2 is 28, B1 is a creatinine 0.46, his total bilirubin is up from the previous value and is currently at 2, AST is 607, improved, and ALT is 533, worsening from previous value, alkaline phosphatase is 109. Pleural fluid analysis revealed transudative fluid, no growth on the pleural fluid cultures. He is currently in sinus mechanism with a controlled rate, no recurrence of V. fib. His magnesium is still low at 1.3, and he was given 3 g of magnesium sulfate On 11/21/2020, the patient is being seen for a FU. The patient is on oxygen at 2 L per minute nasal cannula. The patient came in with shortness of breath, dec ompensated heart failure, atrial fibrillation with rapid ventricular response. The patient was treated with a combination of beta blockers, Cardizem drip and amiodarone and the patient was treated with IV heparin. The patient also received SUSIE with subsequent cardioversion. During the course of the disease, the patient's required bilateral thoracentesis and the fluid was a transudate. COVID-19 testing was negative. On 11/18/2020, the patient got moved to the intensive care unit as the patient had a run of V. fib and required CPR and defibrillation if was successful and there was return of spontaneous circulation. The patient os currently on a combination of Lasix and Aldactone. She is also on long-term anticoagulation with Eliquis. The patient underwent cardiac catheterization yesterday. In terms of his atrial fibrillation, the patient is currently on oral amiodarone at a dose of 200 mg 3 times a day. He is also on anticoagulation with Eliquis. Cardiac catheterization was done yesterday and it showed with a percent RCA lesion, and the patient currently is on 2 L of oxygen by nasal cannula. Chest x-ray showing some interval improvement in the volume status and the patient remains on Lasix 20 mg by mouth daily and Zestril 2.5 mg by mouth daily. On today's evaluation of 11/22/2020, the patient is comfortable in bed. The patient is currently on room air oxygen. He was in the intensive care unit earlier. He underwent cardiac catheterization that showed 100% occlusion of the RCA and the patient will be offered medical management. Meanwhile, the patient is also being treated for his CHF. He is currently on Lasix and the Lasix as was switched to oral Lasix 20 mg by mouth twice a day and he was also started on Aldactone 12.5 mg by mouth daily.. He is on Zestril 20 mg by mouth twice a day and is also on amiodarone 200 mg by mouth 3 times a day. He was started on long-term medical condition with Eliquis 5 mg by mouth twice a day. He is also on Coreg 3.125 mg twice a day. On today's evaluation, the patient was found to be in a normal sinus rhythm. Renal function is stable with a BUN of 6 and a creatinine of 0.44. Sodium level is at 128. LFTs are improving and AST is down to 355, ALT is down to 452, and appropriate calcitonin level is also down to 0.49. The patient remains on oral Augmentin. 2020, the patient is being seen on a telemetry unit. He has already left intensive care unit. His post cardiac catheterization that showed 100% RCA lesion and he was offered medical management. He is also known to have CHF and currently is on Lasix 20 mg by mouth twice a day and he was also started on Aldactone. He is also on a combination of Zestril, Coreg regarding his cardiomyopathy. He is in normal sinus rhythm. Is on amiodarone 200 mg by mouth 3 times a day and is also on Eliquis 5 mg by mouth twice a day. In terms of his fluid balance, the patient has been in negative fluid balance and he is losing weight in order of 1.9 kg. His liver function tests were already improving. His sodium level is up for this up to 1:30. No major abnormalities in his white count. He is on room air oxygen with a pulse ox of 93%. No other significant events overnight. His full calcitonin level was also done and the patient is currently on oral Augmentin completing a total of 7 day course. Also offer the LifeVest which she is going to wear the time of discharge and he is going to follow-up with cardiology. He remains in normal sinus rhythm for now. His postthoracentesis with transudate and the lungs. Objective - Vital Signs Vital signs: Vital Signs Temp 97.1 F L 11/23/20 09:00 Pulse 70 11/23/20 09:00 Resp 16 11/23/20 09:00 BP 96/57 11/23/20 09:00 Pulse Ox 93 L 11/23/20 09:00 Intake & Output 11/22/20 11/23/20 11/23/20 18:59 06:59 18:59 Intake Total 900 250 240 Balance 900 250 240 Weight 64.2 kg Intake: Oral 900 250 240 Other: Voiding Method Toilet Toilet Urinal Urinal # Voids 3 1 - Exam GENERAL EXAM: Alert, pleasant, 59-year-old white male, patient is currently on room air oxygen HEAD: Normocephalic/atraumatic. EYES: Normal reaction of pupils, equal size. Conjunctiva pink, sclera white. NOSE: Clear with pink turbinates. THROAT: No erythema or exudates. NECK: No masses, no JVD, no thyroid enlargement, no adenopathy. CHEST: No chest wall deformity. Symmetrical expansion. LUNGS: Equal air entry with diminished breath sounds with basilar crackles CVS: Regular rate and rhythm, normal S1 and S2, no gallops, no murmurs, no rubs ABDOMEN: Soft, nontender. No hepatosplenomegaly, normal bowel sounds, no guarding or rigidity. EXTREMITIES: No clubbing, mild lower extremity edema, no cyanosis, 2+ pulses and upper and lower extremities. MUSCULOSKELETAL: Muscle strength and tone normal. SPINE: No scoliosis or deformity SKIN: No rashes CENTRAL NERVOUS SYSTEM: Alert and oriented -3. No focal deficits, tone is normal in all 4 extremities. PSYCHIATRIC: Alert and oriented -3. Appropriate affect. Intact judgment and insight. - Labs CBC & Chem 7: 11/23/20 06:53 11/23/20 06:53 Labs: Abnormal Lab Results - Last 24 Hours (Table) 11/23/20 11/23/20 Range/Units 06:53 06:53 Lymphocytes # 0.7 L (1.0-4.8) k/uL Sodium 130 L (137-145) mmol/L Creatinine 0.59 L (0.66-1.25) mg/dL Calcium 8.0 L (8.4-10.2) mg/dL Microbiology - Last 24 Hours (Table) 11/17/20 10:03 Blood Culture - Preliminary Blood No Growth after 120 hours 11/18/20 08:10 Gram Stain - Final Pleural Fluid Body Fluid Culture - Final Assessment and Plan Plan: #1. acute hypoxic respiratory failure secondary to severe cardiomyopathy, with ejection fraction of less than 20%, and patient presented with acute systolic CHF and bilateral pleural effusions, negative for COVID 19, RSV or Influenza is CTA of the chest showed bilateral pleural effusion, CHF and bilateral areas of c onsolidation with a elevated pro calcitonin and the patient was given IV antibiotics accordingly. Received bilateral thoracentesis. Currently on room air oxygen Clinically the patient has improved. CHF is being further optimized. Currently the patient a combination of Lasix and Aldactone. The patient is also on a combination of Coreg and lisinopril. Shortness of breath has recovered and the patient is ambulating. Currently he is on room air oxygen. He has undergone bilateral thoracentesis regarding his pleural effusion on the fluid turned out to be transudate. #2. Acute systolic CHF, recovered #3. Atrial fibrillation with RVR, currently back into sinus rhythm. The patient is currently on amiodarone 200 mg by mouth 3 times a day in addition to long-term and to coagulation with Eliquis. Remains advanced normal sinus rhythm #4. Episode of V. fib, possibly torsade, pulseless, patient received CPR and synchronous cardioversion on 11/17/2020 with ROSC, wearing a LifeVest #5. Bilateral pleural effusions, status post right-sided thoracentesis with 1.2 L removed on 11/17/2020, and left-sided thoracentesis with 1.2 L removed on 11/18/2020 on the right, left-sided pleural fluid showed transudate #6. Multiple electrolyte abnormalities, including hyponatremia, hypokalemia, hypomagnesemia and hypocalcemia #7. Elevated d-dimer with no evidence of PE on the CTA chest #8. Anion gap metabolic acidosis, improved #9. History of chronic alcohol use #10. History of chronic tobacco use and nicotine addiction rule out COPD #11 CAD with 100% RCA lesion, rest of the coronaries are patent and within normal limits. Plan: Continue Lasix 20 mg daily, continue Aldactone Maintain negative fluid balance has been -1.9 L over the past 24 hours of fluid balance Cardiac rhythm is currently sinus Continue amiodarone 200 mg by mouth 3 times a day Provide a LifeVest Long-term anticoagulation with Eliquis 5 mg by mouth twice a day IV fluids to KVO and fluid restriction. The patient has been negative fluid balance. Chest x-ray showing improvement in the volume status. Pleural fluid has been a transudate Procalcitonin level is improving and the patient will be completing course of Augmentin for a total of 7 day course of Augmentin No recurrence of V. fib, remains in sinus mechanism Cardiology is following, and cardiac catheterization to be completed and the patient was found to have 100% RCA lesion and the rest of the coronaries were patent Possible discharged home today and follow up on outpatient basis
--- NOTE | 2020-11-23 11:34 | P.PN ---
Subjective This is a pleasant 59-year-old male with no signifcant past medical history. 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 He denies any cardiac history. Denies history of diabetes, [place], stroke, hypertension. We have been asked to see in consultation for new onset atrial fibrillation with RVR and heart failure. Echocardiogram revealed severe LV dysfunction size to cardiomyopathy EF <20% 11/16/20: Patient had a SUSIE cardioversion with conversion to sinus rhythm. 11/18/20: Patient had an episode of polymorphic V. tach. Patient required brief CPR and shock with mandaeism of the sinus rhythm. Patient underwent cardiac cath which revealed total occlusion of the RCA with collaterals from the left system. No significant disease in the left side. 11/23/20: Patient received his life vest last night. Patient seen and examined at bedside, no acute distress. Patient maintains sinus mechanism heart rate 60-70's. Patient currently being maintained on amiodarone 200 mg 3 times a day, Eliquis 5 mg twice a day carvedilol 3.125 mg twice a day, Lasix 20 mg twice a day, lisinopril 5 mg daily, Aldactone 12.5 mg daily PHYSICAL EXAMINATION Blood pressure SBP 90s, BP 96/57 heart rate 70 afebrile and maintaining oxygen saturation on 95% on room air CONSTITUTIONAL: No apparent distress. HEENT: Neck supple mild JVD. No carotid bruit. CHEST EXAMINATION: Lungs are clear auscultation bilaterally HEART EXAMINATION: Regular rate and rhythm. S1, S2 heard. Systolic murmur noted No gallops or rub. ABDOMEN: Soft, nontender. Positive bowel sounds. EXTREMITIES: 2+ peripheral pulses, No lower extremity edema and no calf tenderness. NEUROLOGIC EXAMINATION: Patient is awake, alert and oriented x3. 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 Mcginnis on discharge Patient is stable for discharge home Nurse Practitioner note has been reviewed, I agree with a documented findings and plan of care. Patient was seen and examined. Objective - Vital Signs Vital signs: Vital Signs Temp 97.1 F L 11/23/20 09:00 Pulse 70 11/23/20 09:00 Resp 16 11/23/20 09:00 BP 96/57 11/23/20 09:00 Pulse Ox 93 L 11/23/20 09:00 Intake & Output 11/22/20 11/23/20 11/23/20 18:59 06:59 18:59 Intake Total 900 250 240 Balance 900 250 240 Weight 64.2 kg Intake: Oral 900 250 240 Other: Voiding Method Toilet Toilet Urinal Urinal # Voids 3 1 - Labs CBC & Chem 7: 11/23/20 06:53 11/23/20 06:53 Labs: Abnormal Lab Results - Last 24 Hours (Table) 11/23/20 11/23/20 Range/Units 06:53 06:53 Lymphocytes # 0.7 L (1.0-4.8) k/uL Sodium 130 L (137-145) mmol/L Creatinine 0.59 L (0.66-1.25) mg/dL Calcium 8.0 L (8.4-10.2) mg/dL Microbiology - Last 24 Hours (Table) 11/17/20 10:03 Blood Culture - Preliminary Blood No Growth after 120 hours 11/18/20 08:10 Gram Stain - Final Pleural Fluid Body Fluid Culture - Final
[2020-11-23 11:59] VITALS: BP 99/64; PULSE 76; RESP 18
--- NOTE | 2020-11-23 13:45 | P.PN ---
Subjective Progress Note Date: 11/22/20 This is a pleasant 59 years old male With past medical history of diabetes mellitus, hypertension, hyperlipidemia, GI bleed, hypothyroidism. Presents because of generalized weakness, worsening over 2 weeks.. Found to have A. fib and RVR and severe CHF with ejection fraction less than 20% and a d-dimer was elevated about 3.1, so CTA of the chest was obtained showing no PE but bilateral pleural effusion, patient underwent a thoracocentesis today with 1.0 L removed and Plavix for left thoracotomy cc tomorrow. Also there is an evidence of bilateral infiltrates and mitral regurgitation. Patient remains mildly hypoxic with oxygen saturation low 90s on 3 L oxygen via nasal cannula with evidence of venous congestion patient is placed on Lasix 40 mg 3 times a day. Also he is on heparin drip. Cardiology recommended amiodarone, lisinopril, digoxin. No varicose because blood pressure on the low normal site, currently well 86/54. Mild increase WBC at 13.9 while on steroids. Sodium is 1:30 Patient also is on Augmentin, Lasix IV, heparin drip, no steroids 11/18/2020 Patient lying in bed comfortable not in distress, no chest pain or dyspnea, no exertional dyspnea because he stayed in bed. No other specific or new complaints. He is saturating 91-94% on 4 L/m of oxygen. Potassium 2.9 and magnesium 1.5 been replaced This Lasix. Because his edema resolved, electrolytes abnormalities are correct per Protocol. Cardiology are pending for cardiac cath 11/19/2020 Patient with no dyspnea or chest pain but is sitting in bed most of the time. He is status post bilateral thoracentesis on 11/17/29. Bilateral leg edema. Cardiology team are planning for cardiac cath in 24-48 hours , in the meantime patient kept on heparin drip as well as amiodarone and digoxin for his cardiac arrhythmia/A. fib. Also he is on lisinopril and Aldactone for his heart failure. His bilateral infiltrates or suspicious for pneumonia that's why he was placed on Augmentin. Deb normal today. Sodium coming down to 1:30 down to 127. Patient is on room air. Blood pressure is low normal but tolerated by the patient. Echocardiogram showing severe global hypokinesia with ejection fraction less than 20% and global marketing manager recommended lifevest prior to discharge . 11/20/20 Patient remains in the ICU, asymptomatic but he is sitting in bed most of the time. He has severe ejection fraction of less than 20 and severe global hypokinesia, and cardiology started him on normal saline at 75 L/h and a preparation for cardiac cath tomorrow, pulmonary and returned and it small dose of Lasix 20 mg daily. His heparin drip was switched to Eliquis today. And continue with Augmentin per field hand. for bilateral infiltrates in his lung deras. Leukocytosis is back to normal Other than that his no sodium is stable at 127, liver enzymes are trending up, blood pressure is low normal but patient is on room air. 11/21/2020 This is a pleasant 59 years old male presents with new-onset A. fib, he has severe cardiomyopathy with ejection fraction less than 20%, he is also status post SUSIE and cardioversion on 11/16. Found to have bilateral pleural effusion status post bilateral thoracentesis on 11/17 and 11/18, also echo showed evidence of mitral regurgitation. Augmentin was started for him for bilateral pulmonary infiltrate with Protonix calcitonin is trending down 1.1 down to 0.49. Manager Interface and pulmonary/clinical associate on the case. Patient clinically doing good and he is out of bed to chair today. No chest pain or dyspnea over the last 2 days. Manager Interface placed him on antiarrhythmic medication including am iodarone 200 mg twice daily, digoxin, also Coreg 3.125 mg and oral Lasix 20 mg twice daily. Also he was started on Eliquis. His sodium is stable at 129, liver enzymes trending down, he is on room air, blood pressure is low normal. Chest x-ray from today showing bilateral multifocal opacity with left pleural effusion. Patient is transferred out of the ICU to select unit today. Upon discharge global marketing manager recommended lifevest. [id number] Patient was admitted to the hospital due to acute CHF with systolic dysfunction, severe nonischemic cardiomyopathy and a new onset A. fib with RVR and also had brief episode of polymorphic V. tach on 11/18/2020. Patient is currently resting in the bed comfortably. Currently maintaining sinus rhythm. No complains of chest pain or shortness of breath. Patient is being continued on amiodarone changed to 200 mg twice daily. Also on Coreg and lisinopril. Patient is being anticoagulated with Eliquis this. 11/18/20: Patient had an episode of polymorphic V. tach. Patient required brief CPR and shock with sikh of the sinus rhythm. Patient does require lifevest at discharge. Next current medications reviewed. Current medications reviewed Objective - Vital Signs Vital signs: Vital Signs Temp 97.5 F L 11/22/20 12:00 Pulse 70 11/22/20 12:57 Resp 16 11/22/20 12:57 BP 114/54 11/22/20 12:00 Pulse Ox 98 11/22/20 12:00 Intake & Output 11/21/20 11/22/20 11/22/20 18:59 06:59 18:59 Intake Total 892 680 Output Total 425 Balance 467 680 Weight 67.2 kg 66.1 kg Intake: IV 270 Magnesium Sulfate-D5w Pmx 200 1 gm In Dextrose/Water 1 100ml.bag @ 100 mls/hr IVPB Q1H ISABELLA Rx#: [id number] Sodium Chloride 0.9% 1, 70 000 ml @ 20 mls/hr IV . Q24H ISABELLA Rx#:[id number] Oral 622 680 Output: Urine 425 Other: Voiding Method Indwelling Catheter Toilet Toilet Urinal Urinal # Voids 1 1 - Exam - Exam -GENERAL: The patient is alert and oriented he feels generally weak and lethargic. No respiratory distress HEENT: Pupils are round and equally reacting to light. EOMI. No scleral icterus. No conjunctival pallor. Normocephalic, atraumatic. No pharyngeal erythema. No thyromegaly. CARDIOVASCULAR: S1 and S2 present. No murmurs, rubs, or gallops. -PULMONARY: Chest is clear to auscultation, no wheezing . Bilateral basal crackles. ABDOMEN: Soft, nontender, nondistended, normoactive bowel sounds. No palpable organomegaly. MUSCULOSKELETAL: No joint swelling or deformity. -EXTREMITIES: No cyanosis, clubbing, . Bilateral patellar leg edema NEUROLOGICAL: Gross neurological examination did not reveal any focal deficits. SKIN: No rashes. no petechiae. - Labs CBC & Chem 7: 11/23/20 06:53 11/23/20 06:53 Labs: Abnormal Lab Results - Last 24 Hours (Table) 11/21/20 Range/Units 03:17 Procalcitonin 0.49 H (0.02-0.09) ng/mL Microbiology - Last 24 Hours (Table) 11/17/20 10:03 Blood Culture - Preliminary Blood No Growth after 120 hours 11/18/20 08:10 Gram Stain - Final Pleural Fluid Body Fluid Culture - Final Assessment and Plan Assessment: Acute Severe systolic congestive heart failure with ejection fraction less than 20% Nonischemic cardiomyopathy History of alcohol use A. fib and RVR status post SUSIE and cardioversion on 11/16 Bilateral pleural effusion status post thoracocentesis, right on 11/17 and left on 11/18 Mitral regurgitation Bilateral infiltrates suspicious for pneumonia Generalized weakness secondary to above Acute hypoxic respiratory failure secondary to above Mild hypervolemic hyponatremia Plan: This is a pleasant 59 years old male who presents with CHF, A. fib, bilateral pleural effusion. Patient is undergoing thoracocentesis. He is on Augmentin, IV Lasix and heparin drip changed to eliquis. Also he is on amiodarone, digoxin, HARJEET inhibitor and Aldactone. Cardiology and pulmonary/critical care team on the case Labs and medication were reviewed.. Continue same treatment. Continue with symptomatic treatment. Resume home medication. Monitor lytes and vitals. DVT and GI prophylaxis. Further recommendationsas per clinical course of the patient DVT prophylaxis: heparin GI Prophylaxis: Ppi Prognosis is guarded Time with Patient: Greater than 30
--- NOTE | 2020-11-24 08:48 | P.CARDCATH ---
Date of Procedure: 11/24/20 Preoperative Diagnosis: Cardiomyopathy, CHF and V. tach Postoperative Diagnosis: Coronary artery disease with total occlusion of the RCA Procedure(s) Performed: Left heart catheterization with the selective coronary arteriography without left ventriculography Description of Procedure: HISTORY: This is a 59-year-old gentleman was admitted to the hospital with findings of CHF and cardiomyopathy. Patient also had a polymorphic V. tach. He is advised to have cardiac catheterization for definitive diagnosis CONSENT:I have discussed the risks, benefits and alternative therapies for the above-mentioned procedure and for both sedation/analgesia as well as necessary blood product administration, if indicated, as they pertain to this patient. The patient has indicated understanding and acceptance of the risks and procedures discussed. PROCEDURE: Patient was brought to the lab in a fasting state. Patient was given some IV sedation. Attempts were made to do cardiac catheterization from right radial approach. The right radial artery was entered using Seldinger technique , but catheters could not be advanced. The procedure was abandoned and the ER been was applied for hemostasis. The procedure was completed from the right groin. The right groin is infiltrated with lidocaine and right femoral artery was entered using Seldinger technique. A 6-[place] catheter was left in place and selective coronary arteriography and left ventriculography was performed. Patient tolerated the procedure well. Femoral angiogram was performed and Angio-Seal was applied for hemostasis. No immediate complications were noted and patient was transferred to [facility] in a stable condition Conscious Sedation: Versed 1mg Fentanyl 50 g Duration 40 minutes minutes HEMODYNAMICS: The aortic pressure is about 100/70. Left ankle end-diastolic pressure is 10-12. There was no gradient across the aortic valve SELECTIVE CORONARY ARTERIOGRAPHY: LEFT MAIN: This is normal length and free of occlusive disease THE LEFT ANTERIOR DESCENDING CORONARY ARTERY: Good caliber vessel. Free of occlusive disease THE LEFT CIRCUMFLEX AND IS CORONARY ARTERY: . Good caliber vessel. Free of occlusive disease THE RIGHT CORONARY ARTERY: Not selectively studied. This seemed to be collateral flow from left system to the RCA. Totally occluded proximally LEFT VENTRICULOGRAPHY: . Not performed FINAL IMPRESSION: . Total occlusion of the RCA. Left coronary system is free of occlusive disease PLAN: Maximum medical therapy with risk factor modification PROGNOSIS: Guarded
== END 2020-11-23 15:54 | disposition home health service (06) | DRG 286 ==
LOC: EC 17:00 → 3SCARD 19:34 → 2SICU 11-16 14:51 → 3SCARD 11-21 15:32
PROVIDERS: ADMIT Family Medicine; ATTEND Family Medicine
PROC: 5A2204Z Restoration of Cardiac Rhythm, Single (ICD-10-PCS; 2020-11-16)
PROC: B246ZZ4 Ultrasonography of Right and Left Heart, Transesophageal (ICD-10-PCS; 2020-11-16)
PROC: 0W993ZZ Drainage of Right Pleural Cavity, Percutaneous Approach (ICD-10-PCS; 2020-11-17)
PROC: 5A2204Z Restoration of Cardiac Rhythm, Single (ICD-10-PCS; 2020-11-17)
PROC: 0W9B3ZZ Drainage of Left Pleural Cavity, Percutaneous Approach (ICD-10-PCS; 2020-11-18)
PROC: 4A023N7 Measurement of Cardiac Sampling and Pressure, Left Heart, Percutaneous Approach (ICD-10-PCS; principal; 2020-11-23)
PROC: B2111ZZ Fluoroscopy of Multiple Coronary Arteries using Low Osmolar Contrast (ICD-10-PCS; 2020-11-23)
DX: I50.21 Acute systolic (congestive) heart failure (principal); J96.01 Acute respiratory failure with hypoxia; I46.9 Cardiac arrest, cause unspecified; I49.01 Ventricular fibrillation; J18.9 Pneumonia, unspecified organism; I42.8 Other cardiomyopathies; J91.8 Pleural effusion in other conditions classified elsewhere; E87.2 Acidosis; I48.92 Unspecified atrial flutter; E87.1 Hypo-osmolality and hyponatremia; I47.2 Ventricular tachycardia; J44.0 Chronic obstructive pulmonary disease with (acute) lower respiratory infection; J98.11 Atelectasis; I45.89 Other specified conduction disorders; I42.9 Cardiomyopathy, unspecified; I95.9 Hypotension, unspecified; I11.0 Hypertensive heart disease with heart failure; I48.91 Unspecified atrial fibrillation; Z91.19 Patient's noncompliance with other medical treatment and regimen; F17.210 Nicotine dependence, cigarettes, uncomplicated; I48.0 Paroxysmal atrial fibrillation; F10.20 Alcohol dependence, uncomplicated; Z20.822 Contact with and (suspected) exposure to COVID-19; I34.0 Nonrheumatic mitral (valve) insufficiency; E87.6 Hypokalemia; E83.51 Hypocalcemia; I25.10 Atherosclerotic heart disease of native coronary artery without angina pectoris; I25.82 Chronic total occlusion of coronary artery; E03.9 Hypothyroidism, unspecified; E11.9 Type 2 diabetes mellitus without complications; E78.5 Hyperlipidemia, unspecified; E83.42 Hypomagnesemia; Z79.01 Long term (current) use of anticoagulants; Z79.899 Other long term (current) drug therapy
CPT/HCPCS: 36415; 71045; 71275; 76604; 80048; 80053; 80162; 82945; 83605; 83615; 83735; 83880; 84100; 84132; 84145; 84157; 84484; 85025; 85027; 85379; 85610; 85730; 87040; 87070; 87086; 87102; 87116; 87205; 87206; 87252; 87636; 88108; 88305; 89050; 92960; 93005; 93306; 93312; 93320; 93325; 93458; 93567; 94640; 94660; 94760; 96361; 96365; 96366; 96374; 96375; 96376; 99291

== ENCOUNTER → 2024-02-27 | Outpatient (CLI) | payer OTHER | END | disposition home or self-care (01) | LOC: RADECHMAIN 15:30 | PROVIDERS: ATTEND Internal Medicine Geriatric Medicine | DX: I50.9 Heart failure, unspecified (principal) | CPT/HCPCS: 93306 ==